=== PATIENT | female | born 1960 | race Caucasian/White ===

== ENCOUNTER 2016-11-05 03:12 | Emergency (ER) | payer MEDICARE, OTHER, MEDICAID ==
[2016-11-05 03:12] VITALS: BMI 30.9
[2016-11-05] MEDS ORDERED: DiphenhydrAMINE 50 mg/ml Inj IM STA (03:43)
[2016-11-05] MEDS ORDERED: DiphenhydrAMINE 50 mg/ml Inj ONE (03:46)
--- NOTE | 2016-11-05 03:52 | ED PDOC ---
HPI: General Adult Time Seen by Provider: 11/05/16 03:50 Chief Complaint (Nursing): Abnormal Skin Integrity Chief Complaint (Provider): rash/leg pain History Per: Patient (56 y/o female in ED for evaluation of rash noted along back/upper and lower extremities x 2 days. Attempted use of benadryl cream without relief. Also notes sciatica ongoing that is not improved with naproxen today. Patient states there are multiple bed bug infested apartments in her complex.) Past Medical History Reviewed: Historical Data, Nursing Documentation, Vital Signs Vital Signs: Last Vital Signs Temp 98.2 F 11/05/16 03:15 Pulse 73 11/05/16 03:15 Resp 18 11/05/16 03:15 BP 132/45 L 11/05/16 03:15 Pulse Ox 96 11/05/16 03:53 - Medical History PMH: Depression, Diabetes, HTN - Surgical History Surgical History: Cholecystectomy - Family History Family History: States: No Known Family Hx - Home Medications Home Medications: Ambulatory Orders Medication Instructions Recorded Atorvastatin Calcium [Lipitor] 10 mg PO DAILY 09/13/12 Fluoxetine Hydrochloride [Prozac] 10 mg PO DAILY 09/13/12 Lisinopril 20 mg PO DAILY 09/13/12 Metformin HCl [Metformin] 500 mg PO BID 09/13/12 Quetiapine Fumarate [Seroquel] 100 mg PO BID 09/13/12 traZODone [Desyrel] 100 mg PO DAILY 09/13/12 hydrOXYzine Pamoate [Vistaril] 1 tab PO Q6 PRN #15 cap 11/05/16 traMADol [Ultram] 1 tab PO Q8 PRN #5 tab 11/05/16 - Allergies Allergies/Adverse Reactions: Allergies Allergy/AdvReac Type Severity Reaction Status Date / Time ibuprofen [From Motrin] Allergy RASH Verified 11/05/16 03:15 Review of Systems ROS Statement: Except As Marked, All Systems Reviewed And Found Negative Physical Exam - Reviewed Nursing Documentation Reviewed: Yes Vital Signs Reviewed: Yes - Physical Exam Appears: Positive for: Well, Non-toxic, No Acute Distress Head Exam: Positive for: ATRAUMATIC, NORMAL INSPECTION, NORMOCEPHALIC Skin: Positive for: Normal Color, Warm, Rash (multiple purplish lesions noted posterior aspect of legs/back/arms.) Eye Exam: Positive for: EOMI, Normal appearance, PERRL ENT: Positive for: Normal ENT Inspection Neck: Positive for: Normal, Painless ROM Cardiovascular/Chest: Positive for: Regular Rate, Rhythm Respiratory: Positive for: CNT, Normal Breath Sounds Gastrointestinal/Abdominal: Positive for: Normal Exam, Bowel Sounds, Soft Back: Positive for: Normal Inspection Extremity: Positive for: Normal ROM Neurologic/Psych: Positive for: Alert, Oriented - ECG O2 Sat by Pulse Oximetry: 96 - Progress ED Course And Treament: Benadryl 50 mg IM x 1 dose Disposition - Clinical Impression Clinical Impression: Bed bug bite - Patient ED Disposition Is Patient to be Admitted: No - Disposition Disposition: Routine/Home Disposition Time: 03:53 Condition: FAIR Additional Instructions: F/U WITH DR. WOODWARD TOMORROW OR TUESDAY Prescriptions: hydrOXYzine Pamoate [Vistaril] 1 tab PO Q6 PRN #15 cap PRN Reason: Itching / Pruritus traMADol [Ultram] 1 tab PO Q8 PRN #5 tab PRN Reason: Pain, Severe (8-10) Instructions: Bed Bugs (ED), Sciatica (ED)
[2016-11-05] MEDS ORDERED: Oxycodone/Acetaminophen 5/325 mg Tab ONE (04:04)
[2016-11-05] MEDS ORDERED: Oxycodone/Acetaminophen 5/325 mg Tab PO STA (04:06)
[2016-11-05 05:58] VITALS: BP 129/74; PULSE 77; RESP 17; TEMP 98.1; O2SAT 99
== END 2016-11-05 05:50 | disposition home or self-care (01) ==
LOC: H.ER 03:12 → MERGE 03:12 → H.ER 05:50
DX: M54.30 Sciatica, unspecified side (principal); E11.9 Type 2 diabetes mellitus without complications; I10 Essential (primary) hypertension; Z79.84 Long term (current) use of oral hypoglycemic drugs
CPT/HCPCS: 96372; 99282; J1200; J2270

== ENCOUNTER 2016-12-16 10:33 | Emergency (ER) | payer MEDICARE, OTHER ==
[2016-12-16 10:40] VITALS: BP 127/86; PULSE 74; TEMP 97; O2SAT 99; BMI 30.9
--- NOTE | 2016-12-16 11:40 | ED PDOC ---
HPI: Skin/Bite Injury Time Seen by Provider: 12/16/16 11:27 Chief Complaint (Nursing): Abnormal Skin Integrity Chief Complaint (Provider): rash History Per: Patient History/Exam Limitations: no limitations Additional Complaint(s): 56yo F in ED for eval of rash diffusely on body-states that she had bedbugs x 2- 3 months. states that she was given medication for itching form ER, but has not been effective for symptom relief. however pt states tat she still has bedbugs in home and has told landlord to help with extermination. 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 no swelling to extremity, lips, tongue , difficulty with breathing SOB, CP, abd, pain nausea or vomiting. Past Medical History Reviewed: Historical Data, Nursing Documentation, Vital Signs Vital Signs: Last Vital Signs Temp 97 F L 12/16/16 10:39 Pulse 74 12/16/16 10:39 Resp BP 127/86 12/16/16 10:39 Pulse Ox 99 12/16/16 11:45 - Medical History PMH: Anxiety, Arthritis, Asthma, Back Problems, Bipolar Disorder, Depression, Diabetes, HTN, Hypercholesterolemia, Pneumonia Denies: Hepatitis, HIV, Chronic Kidney Disease, Seizures, Sexually Transmitted Disease - Surgical History Surgical History: Cholecystectomy - Family History Family History: States: Unknown Family Hx - Immunization History Hx Tetanus Toxoid Vaccination: No Hx Influenza Vaccination: No Hx Pneumococcal Vaccination: No - Home Medications Home Medications: Ambulatory Orders Medication Instructions Recorded Zolpidem [Ambien] 10 mg PO HS 05/26/16 clonazePAM [Klonopin] 1 mg PO BID 05/26/16 Canagliflozin [Invokana] 300 mg PO DAILY #0 tablet 05/31/16 FLUoxetine [Prozac] 20 mg PO BID #0 cap 05/31/16 Lisinopril [Zestril] 10 mg PO DAILY #0 tab 05/31/16 MetFORMIN [glucoPHAGE] 1,000 mg PO BIDWM #0 tab 05/31/16 Pioglitazone [Actos] 15 mg PO DAILY #0 tab 05/31/16 Pregabalin [Lyrica] 300 mg PO DAILY #0 capsule 05/31/16 SITagliptin [Januvia] 100 mg PO DAILY #0 tab 05/31/16 Cyclobenzaprine [Cyclobenzaprine 10 mg PO TID #12 tab 09/07/16 HCl] Methylprednisolone [Medrol Dose 4 mg PO DAILY #21 tab 09/07/16 Pack (21 tabs)] Calamine/Pramoxine [Caladryl] 180 ml TP DAILY #1 bottle 12/16/16 hydrOXYzine HCl [Atarax] 25 mg PO BID #10 tab 12/16/16 - Allergies Allergies/Adverse Reactions: Allergies Allergy/AdvReac Type Severity Reaction Status Date / Time ibuprofen Allergy RASH Verified 12/16/16 11:12 Review of Systems ROS Statement: Except As Marked, All Systems Reviewed And Found Negative Constitutional: Negative for: Fever, Chills Skin: Positive for: Rash Physical Exam - Reviewed Nursing Documentation Reviewed: Yes Vital Signs Reviewed: Yes - Physical Exam Appears: Positive for: Non-toxic, No Acute Distress, Uncomfortable Head Exam: Positive for: ATRAUMATIC, NORMAL INSPECTION, NORMOCEPHALIC Skin: Positive for: Warm, Rash (diffuse noted to body-area of exocraiotn noted papaular lesins noted. no swelling no bleeding noted. ) Eye Exam: Positive for: EOMI, Normal appearance, PERRL ENT: Positive for: Normal ENT Inspection Cardiovascular/Chest: Positive for: Regular Rate, Rhythm Respiratory: Positive for: CNT, Normal Breath Sounds Neurologic/Psych: Positive for: Alert, Oriented - ECG O2 Sat by Pulse Oximetry: 99 - Progress ED Course And Treament: pt given decadron in ED Medical Decision Making Medical Decision Making: pt advised to have all bed sheets, clothing washed in very hot water and wait for extermination to be complete to rid completely of bed bugs. pt will be d/.c with atarax and caladryl Disposition - Clinical Impression Clinical Impression: Rash - Patient ED Disposition Is Patient to be Admitted: No Counseled Patient/Family Regarding: Diagnosis, Need For Followup, Rx Given - Disposition Referrals: [facility] [Outside] Disposition: Routine/Home Disposition Time: 11:52 Condition: STABLE Prescriptions: Calamine/Pramoxine [Caladryl] 180 ml TP DAILY #1 bottle hydrOXYzine HCl [Atarax] 25 mg PO BID #10 tab Instructions: Acute Rash (ED)
== END 2016-12-16 12:43 | disposition home or self-care (01) ==
LOC: H.ER 10:33
DX: R21 Rash and other nonspecific skin eruption (principal); E11.9 Type 2 diabetes mellitus without complications; I10 Essential (primary) hypertension; Z86.59 Personal history of other mental and behavioral disorders; J45.909 Unspecified asthma, uncomplicated
CPT/HCPCS: 96372; 99282; J1100

== ENCOUNTER 2017-01-07 11:14 | Emergency (ER) | payer MEDICARE, OTHER, MEDICAID ==
[2017-01-07 11:15] VITALS: BMI 30.9
[2017-01-07 11:17] VITALS: TEMP 97
[2017-01-07] MEDS ORDERED: Lidocaine 5% Patch TD STA (11:39)
--- NOTE | 2017-01-07 11:40 | ED PDOC ---
Upper Extremity Pain/Injury Time Seen by Provider: 01/07/17 11:24 Chief Complaint (Nursing): Upper Extremity Problem/Injury Chief Complaint (Provider): Fall injury History Per: Patient History/Exam Limitations: no limitations Onset/Duration Of Symptoms: Mins (Prior to arrival) Additional Complaint(s): Tanvi Fuentes is a 56-year-old female with a past medical history of diabetes, hypertension, hypercholesterolemia who was brought to the ED via EMS after suffering a fall, resulting in lower back pain and left shoulder pain. The patient denies head trauma, loss of consciousness, and dizziness. Patient reports walking in the lobby of her building and slipping on the floor which was wet from the rain. She reports having an allergy to Motrin which results in hives. PMD: None reported Past Medical History Reviewed: Historical Data, Nursing Documentation, Vital Signs Vital Signs: Last Vital Signs Temp 97 F L 01/07/17 11:16 Pulse 74 01/07/17 11:17 Resp 20 01/07/17 11:17 BP 126/58 L 01/07/17 11:16 Pulse Ox 98 01/07/17 11:17 - Medical History PMH: Anxiety, Arthritis, Asthma, Back Problems, Bipolar Disorder, Depression, Diabetes, HTN, Hypercholesterolemia, Hyperlipidemia, Pneumonia Denies: Hepatitis, HIV, Chronic Kidney Disease, Seizures, Sexually Transmitted Disease - Surgical History Surgical History: Cholecystectomy - Family History Family History: States: Unknown Family Hx - Social History Current smoker - smoking cessation education provided: Yes (socially ) Alcohol: Social - Immunization History Hx Tetanus Toxoid Vaccination: No Hx Influenza Vaccination: No Hx Pneumococcal Vaccination: No - Home Medications Home Medications: Ambulatory Orders Medication Instructions Recorded Atorvastatin Calcium [Lipitor] 10 mg PO DAILY 09/13/12 Fluoxetine Hydrochloride [Prozac] 10 mg PO DAILY 09/13/12 Lisinopril 20 mg PO DAILY 09/13/12 Metformin HCl [Metformin] 500 mg PO BID 09/13/12 Quetiapine Fumarate [Seroquel] 100 mg PO BID 09/13/12 traZODone [Desyrel] 100 mg PO DAILY 09/13/12 Zolpidem [Ambien] 10 mg PO HS 05/26/16 clonazePAM [Klonopin] 1 mg PO BID 05/26/16 Canagliflozin [Invokana] 300 mg PO DAILY #0 tablet 05/31/16 FLUoxetine [Prozac] 20 mg PO BID #0 cap 05/31/16 Lisinopril [Zestril] 10 mg PO DAILY #0 tab 05/31/16 MetFORMIN [glucoPHAGE] 1,000 mg PO BIDWM #0 tab 05/31/16 Pioglitazone [Actos] 15 mg PO DAILY #0 tab 05/31/16 Pregabalin [Lyrica] 300 mg PO DAILY #0 capsule 05/31/16 SITagliptin [Januvia] 100 mg PO DAILY #0 tab 05/31/16 Cyclobenzaprine [Cyclobenzaprine 10 mg PO TID #12 tab 09/07/16 HCl] Methylprednisolone [Medrol Dose 4 mg PO DAILY #21 tab 09/07/16 Pack (21 tabs)] hydrOXYzine Pamoate [Vistaril] 1 tab PO Q6 PRN #15 cap 11/05/16 traMADol [Ultram] 1 tab PO Q8 PRN #5 tab 11/05/16 DiphenhydrAMINE [Benadryl] 25 mg PO ASDIR #1 packet 11/27/16 predniSONE [Prednisone] 20 mg PO BID #10 tab 11/27/16 Calamine/Pramoxine [Caladryl] 180 ml TP DAILY #1 bottle 12/16/16 hydrOXYzine HCl [Atarax] 25 mg PO BID #10 tab 12/16/16 Cyclobenzaprine [Cyclobenzaprine 10 mg PO TID #20 tab 01/07/17 HCl] Lidocaine 5% [Lidoderm] 1 patch TD DAILY #10 patch 01/07/17 traMADol [Ultram] 50 mg PO TID PRN #12 tab 01/07/17 - Allergies Allergies/Adverse Reactions: Allergies Allergy/AdvReac Type Severity Reaction Status Date / Time ibuprofen Allergy RASH Verified 01/07/17 11:17 Review of Systems ROS Statement: Except As Marked, All Systems Reviewed And Found Negative Cardiovascular: Negative for: Chest Pain Respiratory: Negative for: Shortness of Breath Genitourinary Female: Negative for: Dysuria, Frequency, Incontinence Musculoskeletal: Positive for: Shoulder Pain (Left), Back Pain (Lower back) Neurological: Negative for: Dizziness, Other (Head trauma, loss of consciousness ) Physical Exam - Reviewed Nursing Documentation Reviewed: Yes Vital Signs Reviewed: Yes - Physical Exam Appears: Positive for: Well, Non-toxic, No Acute Distress Head Exam: Positive for: ATRAUMATIC, NORMAL INSPECTION, NORMOCEPHALIC Skin: Positive for: Normal Color, Warm, Dry Eye Exam: Positive for: EOMI, Normal appearance, PERRL ENT: Positive for: Normal ENT Inspection Neck: Positive for: Normal, Painless ROM, Supple Cardiovascular/Chest: Positive for: Regular Rate, Rhythm Respiratory: Positive for: CNT, Normal Breath Sounds Pulses-Radial (L): 2+ Pulses-Radial (R): 2+ Gastrointestinal/Abdominal: Positive for: Normal Exam, Bowel Sounds, Soft. Negative for: Tenderness Back: Positive for: Other (tenderness to the paraspinal muscles in the lower thoracic/upper lumber area. No tenderness on the spiny process). Negative for: Vertebral Tenderness Extremity: Positive for: Normal ROM, Tenderness (of the left shoulder, no deformity), Capillary Refill (< 2 seconds ), Other (5/5 throughout). Negative for: Pedal Edema, Deformity, Swelling Neurologic/Psych: Positive for: Alert, Oriented. Negative for: Motor/Sensory Deficits - ECG O2 Sat by Pulse Oximetry: 98 (RA) Pulse Ox Interpretation: Normal Medical Decision Making Medical Decision Making: Initial Impression: Fall, muscle spasm, contusion Initial Plan: * x-ray lumbar spine * flexeril 10 mg PO * morphine 2 mg IM * x-ray left shoulder * lidoderm * reevaluation Scribe Attestation: Documented by Tanvi Schroeder, acting as a scribe for Rose Canseco MD. Provider Scribe Attestation: All medical record entries made by the Scribe were at my direction and personally dictated by me. I have reviewed the chart and agree that the record accurately reflects my personal performance of the history, physical exam, medical decision making, and the department course for this patient. I have also personally directed, reviewed, and agree with the discharge instructions and disposition. Disposition - Clinical Impression Clinical Impression: Shoulder pain, left, Back pain - Patient ED Disposition Is Patient to be Admitted: No Doctor Will See Patient In The: Office Counseled Patient/Family Regarding: Diagnosis, Need For Followup, Rx Given - Disposition Referrals: Enrique Oviedo MD [Family Provider] - Disposition: Routine/Home Disposition Time: 13:55 Condition: IMPROVED Prescriptions: Cyclobenzaprine [Cyclobenzaprine HCl] 10 mg PO TID #20 tab Lidocaine 5% [Lidoderm] 1 patch TD DAILY #10 patch traMADol [Ultram] 50 mg PO TID PRN #12 tab PRN Reason: breakthrough Instructions: Musculoskeletal Pain (ED) Forms: [employer] (Libyan) - POA Present On Arrival: Falls Or Trauma
--- NOTE | 2017-01-07 12:59 | RAD ---
PROCEDURE: Radiographs of the Left Shoulder HISTORY: Fall COMPARISON: No prior. FINDINGS: BONES: Bone alignment and mineralization are normal. There is no acute fracture or bone destruction. JOINTS: There is mild relative osteoarthrosis in the acromioclavicular joint. Glenohumeral joint is preserved. SOFT TISSUES: Normal. OTHER FINDINGS: None. IMPRESSION: No acute displaced fracture or dislocation. Please note occult fractures cannot be excluded on plain radiographs. If there is a persistent clinical concern, an MRI be performed for further evaluation. Mild degenerative osteoarthrosis in the acromioclavicular joint.
--- NOTE | 2017-01-07 13:12 | RAD ---
PROCEDURE: Radiographs of the Lumbar Spine. HISTORY: Fall COMPARISON: No prior. FINDINGS: BONES: There is mild dextrocurvature in the lumbar spine. There is normal alignment of the lumbar vertebral bodies. Lumbar lordosis is maintained. Vertebral bodies are normal in height. There is no acute fracture, spondylolysis or bone destruction. DISC SPACES: There is degenerative disc disease at L4-5 and L5-S1, worse at L5-S1 with severe reduced disc height, anterior osteophytes and facet arthropathy. The remaining disc heights are preserved. OTHER FINDINGS: There are no pathologic soft tissue calcifications. Both sacroiliac joints are normal. Surgical clip in the right upper quadrant are related to prior cholecystectomy. IMPRESSION: No acute fracture, spondylolysis or spondylolisthesis. Moderate degenerative disc disease at L5-S1.
[2017-01-07 14:16] VITALS: BP 127/73; PULSE 52; RESP 16; O2SAT 100
== END 2017-01-07 14:14 | disposition home or self-care (01) ==
LOC: H.ER 11:14
DX: M54.9 Dorsalgia, unspecified (principal); M25.512 Pain in left shoulder; W19.XXXA Unspecified fall, initial encounter; Y92.89 Other specified places as the place of occurrence of the external cause; E11.9 Type 2 diabetes mellitus without complications; E78.00 Pure hypercholesterolemia, unspecified; F31.9 Bipolar disorder, unspecified; F41.9 Anxiety disorder, unspecified; I10 Essential (primary) hypertension; Z79.84 Long term (current) use of oral hypoglycemic drugs; M19.012 Primary osteoarthritis, left shoulder
CPT/HCPCS: 72114; 73030; 96372; 99284; J2270

== ENCOUNTER 2017-02-06 07:57 | Emergency (ER) | payer MEDICAID, MEDICARE, OTHER ==
[2017-02-06 07:58] VITALS: BMI 30.9
[2017-02-06 08:04] VITALS: BP 129/52; PULSE 62; RESP 16; TEMP 97.6; O2SAT 96
[2017-02-06] MEDS ORDERED: Lidocaine 5% Patch TD STA (08:15)
--- NOTE | 2017-02-06 08:58 | ED PDOC ---
HPI: Back Time Seen by Provider: 02/06/17 08:04 Chief Complaint (Nursing): Lower Extremity Problem/Injury Chief Complaint (Provider): Back Pain History Per: Patient History/Exam Limitations: no limitations Current Symptoms Are (Timing): Still Present Previous Symptoms: Back Pain (Chronic Back Pain), Chronic Pain Additional Complaint(s): Tanvi Fuentes, a 56 year old female, who has a past medical history of hypertension, chronic back pain and sciatica presents to the ED complaining of left hip pain that radiates down her left leg. The patient states that she has had similar pain in the past and was seen here at [facility] and diagnosed with sciatica. Denies numbness, abdominal pain, shortness of breath, chest pain, fall , trauma. Patient states she does feel tingling in both her feet due to her diabetes. No incontinence, constipation. Ambulates with the pain. Of note: Patient is currently on the medications Gabapentin, Metaformin, Lisonopril - Risk Factors AAA Risk Factors: Pos: Older Than 49 Years Of Age, Hypertension Past Medical History Reviewed: Historical Data, Nursing Documentation, Vital Signs Vital Signs: Last Vital Signs Temp 97.6 F 02/06/17 08:02 Pulse 62 02/06/17 08:02 Resp 16 02/06/17 08:02 BP 129/52 L 02/06/17 08:02 Pulse Ox 96 02/06/17 08:02 - Medical History PMH: Anxiety, Arthritis, Asthma, Back Problems, Bipolar Disorder, Depression, Diabetes, HTN, Hypercholesterolemia, Hyperlipidemia Denies: Hepatitis, HIV, Chronic Kidney Disease, Seizures, Sexually Transmitted Disease - Surgical History Surgical History: Cholecystectomy - Family History Family History: States: Unknown Family Hx - Social History Current smoker - smoking cessation education provided: No Alcohol: None Drugs: Denies - Immunization History Hx Tetanus Toxoid Vaccination: No Hx Influenza Vaccination: No Hx Pneumococcal Vaccination: No - Home Medications Home Medications: Ambulatory Orders Medication Instructions Recorded Atorvastatin Calcium [Lipitor] 10 mg PO DAILY 09/13/12 Fluoxetine Hydrochloride [Prozac] 10 mg PO DAILY 09/13/12 Lisinopril 20 mg PO DAILY 09/13/12 Metformin HCl [Metformin] 500 mg PO BID 09/13/12 Quetiapine Fumarate [Seroquel] 100 mg PO BID 09/13/12 traZODone [Desyrel] 100 mg PO DAILY 09/13/12 Zolpidem [Ambien] 10 mg PO HS 05/26/16 clonazePAM [Klonopin] 1 mg PO BID 05/26/16 Canagliflozin [Invokana] 300 mg PO DAILY #0 tablet 05/31/16 FLUoxetine [Prozac] 20 mg PO BID #0 cap 05/31/16 Lisinopril [Zestril] 10 mg PO DAILY #0 tab 05/31/16 MetFORMIN [glucoPHAGE] 1,000 mg PO BIDWM #0 tab 05/31/16 Pioglitazone [Actos] 15 mg PO DAILY #0 tab 05/31/16 Pregabalin [Lyrica] 300 mg PO DAILY #0 capsule 05/31/16 SITagliptin [Januvia] 100 mg PO DAILY #0 tab 05/31/16 Cyclobenzaprine [Cyclobenzaprine 10 mg PO TID #12 tab 09/07/16 HCl] Methylprednisolone [Medrol Dose 4 mg PO DAILY #21 tab 09/07/16 Pack (21 tabs)] hydrOXYzine Pamoate [Vistaril] 1 tab PO Q6 PRN #15 cap 11/05/16 traMADol [Ultram] 1 tab PO Q8 PRN #5 tab 11/05/16 DiphenhydrAMINE [Benadryl] 25 mg PO ASDIR #1 packet 11/27/16 predniSONE [Prednisone] 20 mg PO BID #10 tab 11/27/16 Calamine/Pramoxine [Caladryl] 180 ml TP DAILY #1 bottle 12/16/16 hydrOXYzine HCl [Atarax] 25 mg PO BID #10 tab 12/16/16 Cyclobenzaprine [Cyclobenzaprine 10 mg PO TID #20 tab 01/07/17 HCl] Lidocaine 5% [Lidoderm] 1 patch TD DAILY #10 patch 01/07/17 traMADol [Ultram] 50 mg PO TID PRN #12 tab 01/07/17 Lidocaine 5% [Lidoderm] 1 ea TD DAILY PRN 3 Days 02/06/17 - Allergies Allergies/Adverse Reactions: Allergies Allergy/AdvReac Type Severity Reaction Status Date / Time ibuprofen Allergy RASH Verified 01/07/17 11:17 Review of Systems ROS Statement: Except As Marked, All Systems Reviewed And Found Negative Cardiovascular: Negative for: Chest Pain Respiratory: Negative for: Shortness of Breath Gastrointestinal: Negative for: Abdominal Pain Musculoskeletal: Positive for: Back Pain, Other (Left hip pain radiating down left leg) Physical Exam - Reviewed Nursing Documentation Reviewed: Yes Vital Signs Reviewed: Yes - Physical Exam Appears: Positive for: Non-toxic, No Acute Distress Head Exam: Positive for: ATRAUMATIC, NORMAL INSPECTION, NORMOCEPHALIC Skin: Positive for: Normal Color, Warm, Dry Eye Exam: Positive for: Normal appearance, EOMI, PERRL ENT: Positive for: Normal ENT Inspection Neck: Positive for: Normal, Painless ROM, Supple Cardiovascular/Chest: Positive for: Regular Rate, Rhythm, Chest Non Tender. Negative for: Tachycardia Respiratory: Positive for: Normal Breath Sounds. Negative for: Wheezing, Respiratory Distress Gastrointestinal/Abdominal: Positive for: Normal Exam, Bowel Sounds, Soft. Negative for: Tenderness (No abdominal tenderness), Guarding, Rebound Back: Positive for: Normal Inspection. Negative for: L CVA Tenderness, R CVA Tenderness Extremity: Positive for: Normal ROM, Other (Left buttock tenderness; Straight leg raise positive 30 degrees). Negative for: Tenderness, Deformity Neurologic/Psych: Positive for: Alert, Oriented - ECG O2 Sat by Pulse Oximetry: 96 (RA) Pulse Ox Interpretation: Normal - Progress ED Course And Treament: 908: Stable. AAOx3. Pain free. Tolerated PO. Pt. aware ED is applying a pain management protocol. Ambulated with no issues. Medical Decision Making Medical Decision Makin Initial Impression: 56 year old male presenting with left hip pain Initial Plan: * Flexeril 10mg PO * Lidocaine 5% 1 ea TD * Tylenol 975mg PO * Reevaluation Scribe Attestation Documented by Sudha Garcia acting as a scribe for Jeb Colon MD. Provider Attestation: All medical record entries made by the Scribe were at my direction and personally dictated by me. I have reviewed the chart and agree that the record accurately reflects my personal performance of the history, physical exam, medical decision making, and the department course for this patient. I have also personally directed, reviewed, and agree with the discharge instructions and disposition. Disposition - Clinical Impression Clinical Impression: Back pain - Patient ED Disposition Is Patient to be Admitted: No Counseled Patient/Family Regarding: Diagnosis, Need For Followup, Rx Given - Disposition Referrals: Enrique Oivedo MD [Staff Provider] - 02/07/17 Disposition: Routine/Home Disposition Time: 09:10 Condition: STABLE Additional Instructions: Return if not better in 3 days. Prescriptions: Lidocaine 5% [Lidoderm] 1 ea TD DAILY PRN 3 Days PRN Reason: Pain, Moderate (4-7) Instructions: Back Pain (ED) Forms: [employer] (Swedish)
== END 2017-02-06 11:05 | disposition home or self-care (01) ==
LOC: H.ER 07:57
DX: M54.9 Dorsalgia, unspecified (principal); E11.9 Type 2 diabetes mellitus without complications

== ENCOUNTER 2017-02-27 10:09 | Emergency (ER) | payer MEDICARE, MEDICAID ==
[2017-02-27 10:09] VITALS: BMI 30.9
[2017-02-27 10:41] VITALS: BP 131/65; PULSE 56; RESP 16; TEMP 97; O2SAT 97
[2017-02-27] MEDS ORDERED: Lidocaine 5% Patch TD STA (11:05)
[2017-02-27] MEDS ORDERED: Lidocaine 5% Patch TD ONE (11:25)
--- NOTE | 2017-02-27 11:43 | ED PDOC ---
Lower Extremity Pain/Injury Time Seen by Provider: 02/27/17 10:55 Chief Complaint (Nursing): Lower Extremity Problem/Injury Chief Complaint (Provider): Left leg pain History Per: Patient History/Exam Limitations: no limitations Onset/Duration Of Symptoms: Days Additional Complaint(s): Patient is 56 y/o female with a past medical history of diabetic neuropathy presenting to the emergency department for excruciating left leg pain ongoing for a few days that worsened this morning. Reports that as she was getting out of bed, her left leg gave out under her. Also notes taking neurontin without relief of symptoms. Denies fever, chills, nausea, urinary symptoms, and hematuria. Of note, patient is allergic is Motrin, reporting that she develops a rash. PCP: Dr. Enrique Oviedo Past Medical History Reviewed: Historical Data, Nursing Documentation, Vital Signs Vital Signs: Last Vital Signs Temp 97 F L 02/27/17 10:37 Pulse 56 L 02/27/17 10:37 Resp 16 02/27/17 10:37 BP 131/65 02/27/17 10:37 Pulse Ox 97 02/27/17 10:37 - Medical History PMH: Anxiety, Arthritis, Asthma, Back Problems, Bipolar Disorder, Depression, Diabetes, HTN, Hypercholesterolemia, Hyperlipidemia, Pneumonia Denies: Hepatitis, HIV, Chronic Kidney Disease, Seizures, Sexually Transmitted Disease - Surgical History Surgical History: Cholecystectomy - Family History Family History: States: Unknown Family Hx - Social History Current smoker - smoking cessation education provided: Yes (Some days) Ex-Smoker (has not smoked in the last 12 months): No Alcohol: Social Drugs: Denies - Immunization History Hx Tetanus Toxoid Vaccination: No Hx Influenza Vaccination: No Hx Pneumococcal Vaccination: No - Home Medications Home Medications: Ambulatory Orders Medication Instructions Recorded Atorvastatin Calcium [Lipitor] 10 mg PO DAILY 09/13/12 Fluoxetine Hydrochloride [Prozac] 10 mg PO DAILY 09/13/12 Lisinopril 20 mg PO DAILY 09/13/12 Metformin HCl [Metformin] 500 mg PO BID 09/13/12 Quetiapine Fumarate [Seroquel] 100 mg PO BID 09/13/12 traZODone [Desyrel] 100 mg PO DAILY 09/13/12 Zolpidem [Ambien] 10 mg PO HS 05/26/16 clonazePAM [Klonopin] 1 mg PO BID 05/26/16 Canagliflozin [Invokana] 300 mg PO DAILY #0 tablet 05/31/16 FLUoxetine [Prozac] 20 mg PO BID #0 cap 05/31/16 Lisinopril [Zestril] 10 mg PO DAILY #0 tab 05/31/16 MetFORMIN [glucoPHAGE] 1,000 mg PO BIDWM #0 tab 05/31/16 Pioglitazone [Actos] 15 mg PO DAILY #0 tab 05/31/16 Pregabalin [Lyrica] 300 mg PO DAILY #0 capsule 05/31/16 SITagliptin [Januvia] 100 mg PO DAILY #0 tab 05/31/16 Cyclobenzaprine [Cyclobenzaprine 10 mg PO TID #12 tab 09/07/16 HCl] Methylprednisolone [Medrol Dose 4 mg PO DAILY #21 tab 09/07/16 Pack (21 tabs)] hydrOXYzine Pamoate [Vistaril] 1 tab PO Q6 PRN #15 cap 11/05/16 traMADol [Ultram] 1 tab PO Q8 PRN #5 tab 11/05/16 DiphenhydrAMINE [Benadryl] 25 mg PO ASDIR #1 packet 11/27/16 predniSONE [Prednisone] 20 mg PO BID #10 tab 11/27/16 Calamine/Pramoxine [Caladryl] 180 ml TP DAILY #1 bottle 12/16/16 hydrOXYzine HCl [Atarax] 25 mg PO BID #10 tab 12/16/16 Cyclobenzaprine [Cyclobenzaprine 10 mg PO TID #20 tab 01/07/17 HCl] Lidocaine 5% [Lidoderm] 1 patch TD DAILY #10 patch 01/07/17 traMADol [Ultram] 50 mg PO TID PRN #12 tab 01/07/17 Lidocaine 5% [Lidoderm] 1 ea TD DAILY PRN 3 Days 02/06/17 Acetaminophen [Tylenol 325mg tab] 650 mg PO Q6H PRN #50 tab 02/27/17 Cyclobenzaprine [Cyclobenzaprine 10 mg PO TID #15 tab 02/27/17 HCl] Lidocaine 5% [Lidoderm] 1 patch TD DAILY #10 patch 02/27/17 - Allergies Allergies/Adverse Reactions: Allergies Allergy/AdvReac Type Severity Reaction Status Date / Time ibuprofen Allergy RASH Verified 07/07/17 11:17 Review of Systems ROS Statement: Except As Marked, All Systems Reviewed And Found Negative Constitutional: Negative for: Fever, Chills Gastrointestinal: Negative for: Nausea Genitourinary Female: Negative for: Dysuria, Frequency, Hematuria Musculoskeletal: Positive for: Leg Pain (left) Physical Exam - Reviewed Nursing Documentation Reviewed: Yes Vital Signs Reviewed: Yes - Physical Exam Appears: Positive for: Non-toxic, No Acute Distress, Uncomfortable (moderately) Head Exam: Positive for: ATRAUMATIC, NORMAL INSPECTION, NORMOCEPHALIC Skin: Positive for: Normal Color, Warm, Dry Eye Exam: Positive for: Normal appearance, PERRL Neck: Positive for: Normal, Painless ROM, Supple Cardiovascular/Chest: Positive for: Regular Rate, Rhythm. Negative for: Murmur Respiratory: Positive for: Normal Breath Sounds. Negative for: Accessory Muscle Use, Respiratory Distress Gastrointestinal/Abdominal: Positive for: Normal Exam, Soft. Negative for: Tenderness Extremity: Positive for: Tenderness (pain on extension and flexion of left hip and knee. Bilteral lower extremity 5/5 strength.). Negative for: Pedal Edema, Deformity, Swelling Neurologic/Psych: Positive for: Alert, Oriented (x3). Negative for: Motor/ Sensory Deficits - ECG O2 Sat by Pulse Oximetry: 97 (RA) Pulse Ox Interpretation: Normal - Progress Re-evaluation Time: 15:49 Condition: Re-examined, Improved Medical Decision Making Medical Decision Making: Time: 11:04 Initial Impression: Acute on chronic pain in setting of diabetic neuropathy Initial plan: Right Knee X-Ray Tylenol 975 mg PO Flexeril 10 mg PO Lidoderm 1 ea TD Pelvis X-Ray Reevaluation Scribe Attestation: Documented by Priyanka Mireles, acting as a scribe for Rose Canseco MD. Provider Scribe Attestation: All medical record entries made by the Scribe were at my direction and personally dictated by me. I have reviewed the chart and agree that the record accurately reflects my personal performance of the history, physical exam, medical decision making, and the department course for this patient. I have also personally directed, reviewed, and agree with the discharge instructions and disposition. Disposition - Clinical Impression Clinical Impression: Pain - Patient ED Disposition Is Patient to be Admitted: No Doctor Will See Patient In The: Office Counseled Patient/Family Regarding: Diagnosis, Need For Followup, Rx Given - Disposition Referrals: Enrique Oviedo MD [Staff Provider] - Disposition: Routine/Home Disposition Time: 12:50 Condition: IMPROVED Prescriptions: Acetaminophen [Tylenol 325mg tab] 650 mg PO Q6H PRN #50 tab PRN Reason: Pain, Mild (1-3) Cyclobenzaprine [Cyclobenzaprine HCl] 10 mg PO TID #15 tab Lidocaine 5% [Lidoderm] 1 patch TD DAILY #10 patch Instructions: Musculoskeletal Pain (ED) Forms: [facility] (Mongolian) - POA Present On Arrival: None
--- NOTE | 2017-02-27 12:08 | RAD ---
PROCEDURE: Left Knee Radiographs. HISTORY: Pain. COMPARISON: 08/27/2015. FINDINGS: BONES: There is diffuse bone demineralization. There is no acute fracture or bone destruction. Bone alignment is normal. JOINTS: There is severe tricompartmental degenerative osteoarthrosis with reduced joint spaces and marginal osteophytes, worse in the medial compartment. JOINT EFFUSION: Small suprapatellar joint effusion. OTHER FINDINGS: None. IMPRESSION: No acute fracture or dislocation is seen. Moderate tricompartmental degenerative osteoarthrosis, worse in the medial compartment.
--- NOTE | 2017-02-27 12:13 | RAD ---
PROCEDURE: Radiographs of the pelvis. HISTORY: felt leg give out this morning COMPARISON: None. FINDINGS: BONES: Pelvic Bones: The pelvic ring is intact bone mineralization is normal. Hips: No acute displaced fracture or dislocation. JOINTS: Sacroiliac Joints: Unremarkable. Pubic Symphysis: There is mild degenerative osteoarthrosis in the hip joints. OTHER FINDINGS: None. IMPRESSION: No acute displaced fracture or dislocation.
== END 2017-02-27 13:04 | disposition home or self-care (01) ==
LOC: H.ER 10:09
DX: E11.40 Type 2 diabetes mellitus with diabetic neuropathy, unspecified (principal); E78.5 Hyperlipidemia, unspecified; F31.9 Bipolar disorder, unspecified; F41.9 Anxiety disorder, unspecified; G89.29 Other chronic pain; I10 Essential (primary) hypertension; Z79.84 Long term (current) use of oral hypoglycemic drugs

== ENCOUNTER 2017-03-28 04:32 | Emergency (ER) | payer MEDICARE, OTHER ==
[2017-03-28 04:42] VITALS: RESP 16; O2SAT 98
--- NOTE | 2017-03-28 05:15 | ED PDOC ---
Lower Extremity Pain/Injury Time Seen by Provider: 03/28/17 04:46 Chief Complaint (Nursing): Lower Extremity Problem/Injury Chief Complaint (Provider): Leg pain History Per: Patient Additional Complaint(s): Tanvi Fuentes is a 56-year-old female with a past medical history of diabetes, hypertension, hypercholesterolemia who was brought to the ED for evaluation of left hip and knee pain x 1 year. Worse upon ambulation Past Medical History Reviewed: Historical Data, Nursing Documentation, Vital Signs Vital Signs: Last Vital Signs Temp 98.0 F 03/28/17 04:40 Pulse 68 03/28/17 04:40 Resp 16 03/28/17 04:40 BP 136/83 03/28/17 04:40 Pulse Ox 98 03/28/17 04:40 - Medical History PMH: Anxiety, Arthritis, Asthma, Back Problems, Bipolar Disorder, Depression, Diabetes, HTN, Hypercholesterolemia, Hyperlipidemia, Pneumonia Denies: Hepatitis, HIV, Chronic Kidney Disease, Seizures, Sexually Transmitted Disease - Surgical History Surgical History: Cholecystectomy - Family History Family History: States: Unknown Family Hx - Living Arrangements Living Arrangements: Other - Social History Current smoker - smoking cessation education provided: No Alcohol: None Drugs: Denies - Immunization History Hx Tetanus Toxoid Vaccination: No Hx Influenza Vaccination: No Hx Pneumococcal Vaccination: No - Home Medications Home Medications: Ambulatory Orders Medication Instructions Recorded Atorvastatin Calcium [Lipitor] 10 mg PO DAILY 09/13/12 Fluoxetine Hydrochloride [Prozac] 10 mg PO DAILY 09/13/12 Lisinopril 20 mg PO DAILY 09/13/12 Metformin HCl [Metformin] 500 mg PO BID 09/13/12 Quetiapine Fumarate [Seroquel] 100 mg PO BID 09/13/12 traZODone [Desyrel] 100 mg PO DAILY 09/13/12 Zolpidem [Ambien] 10 mg PO HS 05/26/16 clonazePAM [Klonopin] 1 mg PO BID 05/26/16 Canagliflozin [Invokana] 300 mg PO DAILY #0 tablet 05/31/16 FLUoxetine [Prozac] 20 mg PO BID #0 cap 05/31/16 Lisinopril [Zestril] 10 mg PO DAILY #0 tab 05/31/16 MetFORMIN [glucoPHAGE] 1,000 mg PO BIDWM #0 tab 05/31/16 Pioglitazone [Actos] 15 mg PO DAILY #0 tab 05/31/16 Pregabalin [Lyrica] 300 mg PO DAILY #0 capsule 05/31/16 SITagliptin [Januvia] 100 mg PO DAILY #0 tab 05/31/16 Cyclobenzaprine [Cyclobenzaprine 10 mg PO TID #12 tab 09/07/16 HCl] Methylprednisolone [Medrol Dose 4 mg PO DAILY #21 tab 09/07/16 Pack (21 tabs)] hydrOXYzine Pamoate [Vistaril] 1 tab PO Q6 PRN #15 cap 11/05/16 traMADol [Ultram] 1 tab PO Q8 PRN #5 tab 11/05/16 DiphenhydrAMINE [Benadryl] 25 mg PO ASDIR #1 packet 11/27/16 predniSONE [Prednisone] 20 mg PO BID #10 tab 11/27/16 Calamine/Pramoxine [Caladryl] 180 ml TP DAILY #1 bottle 12/16/16 hydrOXYzine HCl [Atarax] 25 mg PO BID #10 tab 12/16/16 Cyclobenzaprine [Cyclobenzaprine 10 mg PO TID #20 tab 01/07/17 HCl] Lidocaine 5% [Lidoderm] 1 patch TD DAILY #10 patch 01/07/17 traMADol [Ultram] 50 mg PO TID PRN #12 tab 01/07/17 Lidocaine 5% [Lidoderm] 1 ea TD DAILY PRN 3 Days patch 02/06/17 Acetaminophen [Tylenol 325mg tab] 650 mg PO Q6H PRN #50 tab 02/27/17 Cyclobenzaprine [Cyclobenzaprine 10 mg PO TID #15 tab 02/27/17 HCl] Lidocaine 5% [Lidoderm] 1 patch TD DAILY #10 patch 02/27/17 - Allergies Allergies/Adverse Reactions: Allergies Allergy/AdvReac Type Severity Reaction Status Date / Time ibuprofen Allergy RASH Verified 03/28/17 04:39 Review of Systems ROS Statement: Except As Marked, All Systems Reviewed And Found Negative Musculoskeletal: Positive for: Leg Pain Physical Exam - Reviewed Nursing Documentation Reviewed: Yes Vital Signs Reviewed: Yes - Physical Exam Appears: Positive for: Well, Non-toxic, No Acute Distress Head Exam: Positive for: ATRAUMATIC, NORMAL INSPECTION, NORMOCEPHALIC Skin: Positive for: Normal Color, Warm, DRY Eye Exam: Positive for: EOMI, Normal appearance, PERRL ENT: Positive for: Normal ENT Inspection Neck: Positive for: Normal, Painless ROM Cardiovascular/Chest: Positive for: Regular Rate, Rhythm Respiratory: Positive for: CNT, Normal Breath Sounds Gastrointestinal/Abdominal: Positive for: Normal Exam, Bowel Sounds, Soft Back: Positive for: Normal Inspection Extremity: Positive for: Normal ROM Neurologic/Psych: Positive for: Alert, Oriented - ECG O2 Sat by Pulse Oximetry: 98 Medical Decision Making Medical Decision Making: Medicated w Tramadol PO XR of hip and knee obtained: FORD LOPEZ, as read by PA-C Pt educated on results and demonstrated full understand full understanding; Pt reports left arm pain at this time as well. Further diagnostics ordered. Case endorsed to ED MD, Dr. Arzola, pending diagnostics and re-eval Disposition - Clinical Impression Clinical Impression: Leg pain - Patient ED Disposition Is Patient to be Admitted: Transfer of Care - Disposition Disposition: Transfer of Care Disposition Time: 05:53 Condition: STABLE Forms: [facility] (Nicaraguan) - POA Present On Arrival: None
[2017-03-28 06:04] LABS: BASO % 0.5 % (0.0-2.0); EOS # 0.2 K/uL (0.0-0.7); EOS % 2.4 % (0.0-4.0); HEMATOCRIT 36.5 % (34.0-47.0); LYMPH # 1.8 K/uL (1.0-4.3); LYMPH % 24.5 % (20.0-40.0); MEAN CELL VOLUME 93.7 fl (81.0-99.0); MEAN CORPUSCULAR HEMOGLOBIN 30.6 pg (27.0-31.0); MEAN CORPUSCULAR HGB CONC 32.7 g/dL (33.0-37.0); MEAN PLATELET VOLUME 9.3 fl (7.2-11.7); MONO # 0.8 K/uL (0.0-0.8); MONO % 10.1 % (0.0-10.0); NEUT # 4.7 K/uL (1.8-7.0); NEUT % 62.5 % (50.0-75.0); RED CELL DISTRIBUTION WIDTH 13.9 % (11.5-14.5); WHITE BLOOD COUNT 7.5 K/uL (4.8-10.8)
--- NOTE | 2017-03-28 06:06 | ED PDOC ---
- Laboratory Results Result Diagrams: 03/28/17 05:55 03/28/17 05:55 - ECG ECG Rhythm: Positive for: Sinus Rhythm Rate: 64 O2 Sat by Pulse Oximetry: 98 Medical Decision Making Medical Decision Makin Patient signed out to provider from Maria Luz Youssef PA-C pending cardiac work up. 0700 Labs WNL. pt resting in bed without complaint. Patient is stable for discharge home. Scribe Attestation: Documented by Deja Zhong acting as a scribe for Raine Arzola MD. Scribe Attestation: All medical record entries made by the Scribe were at my direction and personally dictated by me. I have reviewed the chart and agree that the record accurately reflects my personal performance of the history, physical exam, medical decision making, and the department course for this patient. I have also personally directed, reviewed, and agree with the discharge instructions and disposition. Disposition Counseled Patient/Family Regarding: Studies Performed, Diagnosis, Need For Followup - Clinical Impression Clinical Impression: Leg pain - POA Present On Arrival: None - Disposition Referrals: [facility] [Outside] [facility] [Outside] Enrique Oviedo MD [Primary Care Provider] - Disposition: Routine/Home Disposition Time: 07:00 Condition: STABLE Additional Instructions: follow up with your primary doctor in 1-2 days and with podiatry for chronic leg problems return to the ED with any worsening or concerning symptoms Instructions: Leg Pain (ED) Forms: [facility] (Burundian)
[2017-03-28 06:13] LABS: ALB/GLOB RATIO 1.5 (1.0-2.1); ALKALINE PHOSPHATASE 65 U/L (38-126); ALT/SGPT 24 U/L (9-52); AST/SGOT 19 U/L (14-36); BILIRUBIN,TOTAL 0.3 mg/dl (0.2-1.3); BLOOD UREA NITROGEN 25 mg/dl (7-17); CALCIUM 9.4 mg/dL (8.4-10.2); CARBON DIOXIDE 28 mmol/L (22-30); CHLORIDE 105 mmol/L (98-107); GFR AFRICAN-AMERICAN > 60; GLUCOSE,RANDOM 114 mg/dL (65-105); POTASSIUM 4.4 MMOL/L (3.6-5.0); SODIUM 142 mmol/l (132-148); TOTAL PROTEIN 6.4 G/DL (6.3-8.2)
[2017-03-28 06:29] LABS: PARTIAL THROMBOPLASTIN TIME 29.7 Seconds (25.6-37.1)
[2017-03-28 07:21] VITALS: BP 135/74; TEMP 98.1
--- NOTE | 2017-03-28 08:21 | RAD ---
PROCEDURE: Left Hip X-ray Radiographs. HISTORY: Pain. No history of recent/ related trauma provided COMPARISON: None. FINDINGS: BONES: Normal. No fracture. JOINTS: Normal. SOFT TISSUES: Normal. OTHER FINDINGS: None. IMPRESSION: No acute findings related to/accounting for the clinical presentation. No preliminary report provided by emergency department personnel.
--- NOTE | 2017-03-28 08:21 | RAD ---
PROCEDURE: Left Knee Radiographs. HISTORY: Pain. No history of recent/ related trauma provided COMPARISON: 02/27/2017 FINDINGS: BONES: Proliferative hypertrophic changes emanating from the femoral condyle and tibial plateau [place] No acute fracture identified. JOINTS: Tricompartmental degenerative changes, unchanged compared to the prior study. JOINT EFFUSION: No appreciable joint effusion. OTHER FINDINGS: None. IMPRESSION: No acute findings related to/accounting for the clinical presentation. No significant interval change compared to the prior examination(s). No preliminary report provided by emergency department personnel.
--- NOTE | 2017-03-28 17:24 | CARD ---
APPROVED REPORT EKG Measurement Heart [id number] ID [id number] <Conclusion> Normal sinus rhythm Normal ECG
[2017-03-29 04:38] VITALS: PULSE 64
== END 2017-03-28 07:22 | disposition home or self-care (01) ==
LOC: H.ER 04:32
DX: M79.605 Pain in left leg (principal); E11.9 Type 2 diabetes mellitus without complications; E78.00 Pure hypercholesterolemia, unspecified; F31.9 Bipolar disorder, unspecified; F41.9 Anxiety disorder, unspecified; I10 Essential (primary) hypertension; J45.909 Unspecified asthma, uncomplicated; Z79.84 Long term (current) use of oral hypoglycemic drugs

== ENCOUNTER 2017-07-31 22:54 | Inpatient (IN) | payer MEDICARE, OTHER ==
--- NOTE | 2017-07-31 23:12 | ED PDOC ---
Lower Extremity Pain/Injury Time Seen by Provider: 07/31/17 23:08 Chief Complaint (Nursing): Lower Extremity Problem/Injury Chief Complaint (Provider): leg pain History Per: Patient Additional Complaint(s): 56 year old female presents to ED via EMS for evaluation of low back pain s/p fall. Patient had surgery to left knee on Tuesday morning and Tuesday evening she took a shower and fell injuring her lower back. Patient was sent home from surgery with Tylenol with codeine but this has not helped her back pain. She denies pain to left knee. Patient did not sustain loss of consciousness as a result of fall on Tuesday. PMD: Dr. Oviedo Past Medical History Reviewed: Historical Data, Nursing Documentation, Vital Signs Vital Signs: Last Vital Signs Temp 98.4 F 07/31/17 23:02 Pulse 72 07/31/17 23:02 Resp 18 07/31/17 23:02 BP 150/103 H 07/31/17 23:02 Pulse Ox 99 07/31/17 23:02 - Medical History PMH: Anxiety, Arthritis, Asthma, Back Problems, Bipolar Disorder, Depression, Diabetes, HTN, Hypercholesterolemia, Hyperlipidemia - Surgical History Surgical History: Cholecystectomy Other surgeries: left knee surgery - Family History Family History: States: No Known Family Hx - Living Arrangements Living Arrangements: Alone - Social History Current smoker - smoking cessation education provided: Yes Alcohol: Social Drugs: Denies - Home Medications Home Medications: Ambulatory Orders Medication Instructions Recorded Atorvastatin Calcium [Lipitor] 10 mg PO DAILY 09/13/12 Fluoxetine Hydrochloride [Prozac] 10 mg PO DAILY 09/13/12 Metformin HCl [Metformin] 500 mg PO BID 09/13/12 Zolpidem [Ambien] 10 mg PO HS 05/26/16 clonazePAM [Klonopin] 1 mg PO BID 05/26/16 Lisinopril [Zestril] 10 mg PO DAILY #0 tab 05/31/16 Pioglitazone [Actos] 15 mg PO DAILY #0 tab 05/31/16 Pregabalin [Lyrica] 300 mg PO DAILY #0 capsule 05/31/16 SITagliptin [Januvia] 100 mg PO DAILY #0 tab 05/31/16 Cyclobenzaprine [Cyclobenzaprine 10 mg PO TID #12 tab 09/07/16 HCl] Methylprednisolone [Medrol Dose 4 mg PO DAILY #21 tab 09/07/16 Pack (21 tabs)] predniSONE [Prednisone] 20 mg PO BID #10 tab 11/27/16 Calamine/Pramoxine [Caladryl] 180 ml TP DAILY #1 bottle 12/16/16 hydrOXYzine HCl [Atarax] 25 mg PO BID #10 tab 12/16/16 Lidocaine 5% [Lidoderm] 1 patch TD DAILY #10 patch 01/07/17 traMADol [Ultram] 50 mg PO TID PRN #12 tab 01/07/17 Acetaminophen [Tylenol 325mg tab] 650 mg PO Q6H PRN #50 tab 02/27/17 - Allergies Allergies/Adverse Reactions: Allergies Allergy/AdvReac Type Severity Reaction Status Date / Time ibuprofen Allergy RASH Verified 03/28/17 04:39 Wells Criteria for PE - Wells Criteria for Pulmonary Embolism Clinical Signs and Symptoms of DVT: No P.E is #1 Diagnosis, or Equally Likely: No Heart Rate >100: No Immobilization at least 3 days;Surgery previous 4 weeks: No Previous, objectively diagnosed PE or DVT: No Hemoptysis: No Malignancy w/treatment within 6 months, or palliative: No Total Score: 0 Review of Systems ROS Statement: Except As Marked, All Systems Reviewed And Found Negative Musculoskeletal: Positive for: Back Pain, Leg Pain Physical Exam - Reviewed Nursing Documentation Reviewed: Yes Vital Signs Reviewed: Yes - Physical Exam Appears: Positive for: Well, Non-toxic, Uncomfortable Skin: Negative for: Rash Eye Exam: Positive for: Normal appearance Cardiovascular/Chest: Positive for: Regular Rate, Rhythm Respiratory: Positive for: Normal Breath Sounds Back: Positive for: Vertebral Tenderness (Mild tenderness along midline lumbar spine with no step off or palpable bony deformity), Muscle Spasm (lumbar region) , Other (Surgical scars noted to anterior left knee with moderate diffuse swelling, nontender palpation, swelling or tenderness). Negative for: L CVA Tenderness, R CVA Tenderness Neurologic/Psych: Positive for: Alert, Oriented - Laboratory Results Result Diagrams: 08/01/17 03:10 08/01/17 03:10 - ECG Interpretation Of ECG: Normal sinus rhythm 68/m, reviewed by PA and ED attending O2 Sat by Pulse Oximetry: 99 Pulse Ox Interpretation: Normal - Other Rad L/S Spine x-ray X-Ray: Interpreted by Me, Viewed By Me X-Ray Interpretation: ? L1 compression fracture, CT ordered Left knee x-ray X-Ray: Interpreted by Me, Viewed By Me X-Ray Interpretation: arthritic changes, no acute fx or dis Lumbar spine CT X-Ray: Read By Radiologist X-Ray Interpretation: see below CXR X-Ray: Interpreted by Me, Viewed By Me X-Ray Interpretation: no acute finding Medical Decision Making Medical Decision Makin-year-old female with low back pain. Plan: X-ray LS Spine X-ray left knee PO percocet 2 tabs PO flexeril X-ray lumbar spine demonstrates possible compression fracture, CT was ordered CT: IMPRESSION: 1. There is acute comminuted fracture involving the superior endplate of L1 with retropulsion into the canal measuring 8 mm. There is mild spinal stenosis. 2. Paraspinal infiltration at L1 representing hemorrhage or contusion. Patient still has moderate pain after Percocet was administered, she was made aware of CT findings. Patient given IV Dilaudid. 5:41 am: case was d/w PMD Dr. Oviedo who is aware of admission. Disposition - Clinical Impression Clinical Impression: Compression fx, lumbar spine - Patient ED Disposition Is Patient to be Admitted: Yes - Disposition Disposition Time: 03:30 Condition: FAIR - Pt Status Changed To: Hospital Disposition Of: Inpatient - Admit Certification Admit to Inpatient:: After my assessment, the patient will require hospitalization for at least two midnights. This is because of the severity of symptoms shown, intensity of services needed, and/or the medical risk in this patient being treated as an outpatient. - POA Present On Arrival: None
[2017-07-31] MEDS ORDERED: Oxycodone/Acetaminophen 5/325 mg Tab PO STA (23:25)
[2017-07-31] MEDS ORDERED: Oxycodone/Acetaminophen 5/325 mg Tab ONE ×2 (23:34→23:40)
--- NOTE | 2017-08-01 02:25 | CT ---
EXAM: CT Lumbar Spine Without Intravenous Contrast CLINICAL HISTORY: 56 years old, female; Injury or trauma; Fall; Initial encounter; Additional info: Fall, rule out compression fracture TECHNIQUE: Axial computed tomography images of the lumbar spine without intravenous contrast. All CT scans at this facility use one or more dose reduction techniques, viz.: automated exposure control; ma/kV adjustment per patient size (including targeted exams where dose is matched to indication; i.e. head); or iterative reconstruction technique. 497 images are submitted.Sagittal , axial and coronal MPR reformatted images are submitted in soft tissue and bone windows. COMPARISON: CR - LS SPINE AP/LAT 2017-08-01 01:02 FINDINGS: Vertebrae: There is acute comminuted fracture involving the superior endplate of L1 with retropulsion into the canal measuring 8 mm seen on image 21 series 3. There is mild spinal stenosis. Paraspinal infiltration at L1 representing hemorrhage or contusion. The posterior elements of L1 vertebral body are intact. Right-sided lumbar scoliosis. Discs/spinal canal/neural foramina: T11-T12, L5-S1 vacuum disc. Soft tissues: Unremarkable. Reproductive: Uterus is seen. IMPRESSION: 1. There is acute comminuted fracture involving the superior endplate of L1 with retropulsion into the canal measuring 8 mm. There is mild spinal stenosis. 2. Paraspinal infiltration at L1 representing hemorrhage or contusion. CRITICAL RESULT: The study was personally discussed on the telephone with [Dr. Kyle FARMER, [place]] on 08/01/2017 2:24 AM EST. The results were understood and acknowledged.
[2017-08-01] MEDS ORDERED: Sodium Chloride 0.9% 1,000 ML IV STA (02:36)
[2017-08-01 03:14] LABS: BASO % 0.3 % (0.0-2.0); EOS # 0.2 K/uL (0.0-0.7); EOS % 1.3 % (0.0-4.0); HEMOGLOBIN 13.7 g/dL (12.0-16.0); LYMPH # 2.4 K/uL (1.0-4.3); LYMPH % 21.2 % (20.0-40.0); MEAN CELL VOLUME 92.5 fl (81.0-99.0); MEAN CORPUSCULAR HEMOGLOBIN 31.1 pg (27.0-31.0); MEAN CORPUSCULAR HGB CONC 33.6 g/dL (33.0-37.0); MEAN PLATELET VOLUME 9.3 fl (7.2-11.7); MONO # 0.8 K/uL (0.0-0.8); NEUT # 8.1 K/uL (1.8-7.0); NEUT % 70.2 % (50.0-75.0); RBC 4.41 Mil/uL (3.80-5.20); RED CELL DISTRIBUTION WIDTH 13.1 % (11.5-14.5); WHITE BLOOD COUNT 11.5 K/uL (4.8-10.8)
[2017-08-01 03:24] LABS: ALB/GLOB RATIO 1.4 (1.0-2.1); ALBUMIN 4.3 g/dL (3.5-5.0); ALT/SGPT 18 U/L (9-52); AST/SGOT 23 U/L (14-36); BLOOD UREA NITROGEN 20 mg/dl (7-17); CALCIUM 9.6 mg/dL (8.4-10.2); GFR AFRICAN-AMERICAN > 60; GFR NON-AFRICAN AMERICAN > 60
[2017-08-01] MEDS ORDERED: HYDROmorphone 1 mg/ml ISec IVP PRN (06:34)
--- NOTE | 2017-08-01 07:40 | CARD ---
APPROVED REPORT EKG Measurement Heart [id number] <Conclusion> Normal sinus rhythm Normal ECG
[2017-08-01] MEDS: Pantoprazole 40 mg EC Tab PO SCH (09:52)
[2017-08-01] MEDS: Insulin Regular 100 units/ml SC SCH ×4 (10:10→21:41)
[2017-08-01] MEDS: Lidocaine 5% Patch TD SCH (10:12)
--- NOTE | 2017-08-01 10:46 | RAD ---
HISTORY: clearance COMPARISON: 06/25/2016 FINDINGS: LUNGS: No active pulmonary disease. PLEURA: No significant pleural effusion identified, no pneumothorax apparent. CARDIOVASCULAR: Normal. OSSEOUS STRUCTURES: No significant abnormalities. VISUALIZED UPPER ABDOMEN: Normal. OTHER FINDINGS: None. IMPRESSION: No active disease. No significant interval change compared to the prior examination(s). Concordant results with the preliminary interpretation rendered by the emergency department physician procedure.
--- NOTE | 2017-08-01 12:21 | RAD ---
PROCEDURE: Left Knee Radiographs. HISTORY: Pain. COMPARISON: Comparison is made with the previous study dated 03/28/2017 FINDINGS: BONES: No evidence of acute fracture JOINTS: Moderate to severe osteoarthritic changes are noted associated with marginal osteophyte formation. JOINT EFFUSION: Suspicious for small joint effusion. OTHER FINDINGS: None. IMPRESSION: Moderate to severe osteoarthritic changes.
--- NOTE | 2017-08-01 12:43 | RAD ---
PROCEDURE: Radiographs of the Lumbar Spine. HISTORY: trauma COMPARISON: Comparison is made with the previous study dated 01/07/[address] of the abdomen and pelvis dated 03/31/2014 FINDINGS: BONES: Normal alignment. No listhesis. There is [id number] compression deformity of superior endplate at L1. DISC SPACES: Moderate to severe narrowing of the intervertebral disc space at L5-S1 associated with degenerative changes OTHER FINDINGS: None. IMPRESSION: Age indeterminate [id number] compression deformity at the superior endplate of L1 appears worse compared to the previous study dated 01/07/2017. Moderate to severe degenerative changes at L5-S1
--- NOTE | 2017-08-01 13:00 | CP.PCM.CON ---
History of Present Illness - History of Present Illness History of Present Illness: 56 yo F with pmhx of OA presented to ED for evaluation of low back pain after a fall. Pt underwent recent left knee arthroscopy with partial meniscectomy and synovectomy by Dr. Regalado 07/28/17. Pt states she fell in her bathtub, backwards onto her back. She denies any previous injury or trauma to the low back prior to this fall. She denies any head trauma or LOC. Pt states she is currently not having any left knee pain. She complains of low back pain that radiates down her LLE. Pt denies any SOB, chest pain, N/V/D, motor weakness to b/l LE. She denies any wound drainage or fever/chills. She denies any problems with bladder or bowel funtion. Review of Systems - Constitutional Constitutional: As Per HPI Past Patient History - Infectious Disease Hx of Infectious Diseases: None - Tetanus Immunizations Tetanus Immunization: Unknown - Past Medical History & Family History Past Medical History?: Yes - Past Social History Alcohol: Social Drugs: Denies - CARDIAC Hx Hypercholesterolemia: Yes Hx Hypertension: Yes - PULMONARY Hx Asthma: Yes - NEUROLOGICAL Hx Neurological Disorder: No - HEENT Hx HEENT Problems: No - RENAL Hx Chronic Kidney Disease: No - ENDOCRINE/METABOLIC Hx Endocrine Disorders: Yes Hx Diabetes Mellitus Type 2: Yes - HEMATOLOGICAL/ONCOLOGICAL Hx Blood Disorders: No Hx AIDS: No Hx Human Immunodeficiency Virus (HIV): No - INTEGUMENTARY Hx Dermatological Problems: No - MUSCULOSKELETAL/RHEUMATOLOGICAL Hx Arthritis: Yes - GASTROINTESTINAL Hx Gastrointestinal Disorders: No - GENITOURINARY/GYNECOLOGICAL Hx Genitourinary Disorders: No Hx Sexually Transmitted Disorders: No - PSYCHIATRIC Hx Anxiety: Yes Hx Bipolar Disorder: Yes Hx Depression: Yes - SURGICAL HISTORY Hx Cholecystectomy: Yes - ANESTHESIA Hx Anesthesia: Yes Hx Anesthesia Reactions: No Hx Malignant Hyperthermia: No Has any member of the family had a problem w/ anesthesia?: No Meds Allergies/Adverse Reactions: Allergies Allergy/AdvReac Type Severity Reaction Status Date / Time ibuprofen Allergy RASH Verified 03/28/17 04:39 - Medications Medications: Current Medications Acetaminophen (Tylenol 325mg Tab) 650 mg PO Q6H PRN PRN Reason: Pain, Mild (1-3) Atorvastatin Calcium (Lipitor) 10 mg PO HS [facility] Clonazepam (Klonopin) 1 mg PO BID [facility] Last Admin: 08/01/17 09:49 Dose: 1 mg Cyclobenzaprine HCl (Flexeril) 10 mg PO TID [facility] Last Admin: 08/01/17 10:10 Dose: 10 mg Fluoxetine HCl (Prozac) 10 mg PO DAILY [facility] Last Admin: 08/01/17 10:12 Dose: 10 mg Home Med (Pregabalin [Lyrica]) 300 mg PO DAILY [facility] Hydromorphone HCl (Dilaudid) 1 mg IVP Q4 PRN PRN Reason: Pain, severe (8-10) Last Admin: 08/01/17 08:26 Dose: 1 mg Hydroxyzine HCl (Atarax) 25 mg PO BID PRN PRN Reason: Itching / Pruritus Insulin Human Regular (Humulin R) 0 units SC ACHS [facility] PRN Reason: Protocol Last Admin: 08/01/17 10:10 Dose: Not Given Lidocaine (Lidoderm) 1 ea TD DAILY [facility] Last Admin: 08/01/17 10:12 Dose: 1 ea Lisinopril (Zestril) 10 mg PO DAILY [facility] Last Admin: 08/01/17 09:51 Dose: 10 mg Metformin HCl (Glucophage) 500 mg PO BID [facility] Last Admin: 08/01/17 10:10 Dose: 500 mg Ondansetron HCl (Zofran Inj) 4 mg IVP Q6 PRN PRN Reason: Nausea/Vomiting Pantoprazole Sodium (Protonix Ec Tab) 40 mg PO DAILY [facility] Last Admin: 08/01/17 09:52 Dose: 40 mg Pioglitazone HCl (Actos) 15 mg PO DAILY [facility] Last Admin: 08/01/17 10:09 Dose: 15 mg Sitagliptin Phosphate (Januvia) 100 mg PO DAILY [facility] Last Admin: 08/01/17 09:49 Dose: 100 mg Tramadol HCl (Ultram) 50 mg PO TID PRN PRN Reason: Pain, moderate (4-7) Zolpidem Tartrate (Ambien) 5 mg PO HS PRN PRN Reason: Insomnia Physical Exam - Constitutional Appears: Well, No Acute Distress - Respiratory Exam Respiratory Exam: Clear to Auscultation Bilateral, NORMAL BREATHING PATTERN - Cardiovascular Exam Cardiovascular Exam: REGULAR RHYTHM, RRR - Extremities Exam Additional comments: Left knee: +swelling and echymosis Incision sites C/D/I, no active drainage ROM limited due to pain and stiffness Calves soft and nontender b/l N/V intact distally Distal pulses wnl Results - Vital Signs Recent Vital Signs: Last Vital Signs Temp 98.1 F 08/01/17 08:08 Pulse 68 08/01/17 08:08 Resp 20 08/01/17 08:08 BP 98/68 L 08/01/17 09:51 Pulse Ox 95 08/01/17 08:08 - Labs Result Diagrams: 08/01/17 03:10 08/01/17 03:10 Labs: Laboratory Results - last 24 hr 08/01/17 08/01/17 08/01/17 03:10 03:10 05:56 WBC 11.5 H D RBC 4.41 Hgb 13.7 Hct 40.8 MCV 92.5 MCH 31.1 H MCHC 33.6 RDW 13.1 Plt Count 225 MPV 9.3 Neut % (Auto) 70.2 Lymph % (Auto) 21.2 [place]eld % (Auto) 7.0 Eos % (Auto) 1.3 Baso % (Auto) 0.3 Neut # 8.1 H Lymph # 2.4 Weld # 0.8 Eos # 0.2 Baso # 0.0 Sodium 139 Potassium 4.5 Chloride 101 Carbon Dioxide 27 Anion Gap 16 BUN 20 H Creatinine 0.6 L Est GFR ( Amer) > 60 Est GFR (Non-Af Amer) > 60 POC Glucose (mg/dL) 124 H Random Glucose 156 H Calcium 9.6 Total Bilirubin 0.5 AST 23 ALT 18 Alkaline Phosphatase 78 Total Protein 7.2 Albumin 4.3 Globulin 3.0 Albumin/Globulin Ratio 1.4 Assessment & Plan - Assessment and Plan (Free Text) Assessment: 56 yo F 4 days s/p left knee arthroscopy presents with acute low back pain after a slip and fall Plan: Xrays of left knee reviewed and discussed with Dr. Regalado- no acute fx or dislocation Xray and CT of lumbar spine reviewed and discussed with Dr. Regalado Xrays LS reveal age indeterminate compression fx L1 CT lumbar spine reveals comminuted fx of L1 with retopulsion into canal Recommend: Spine consult for further eval and tx of lumbar spine fx NWB b/l LE pending spine eval and recs Left knee: PAin control dvt ppx- continue aspirin 325mg daily PT/OT pending clearance from spine Can f/u as outpt regarding left knee
--- NOTE | 2017-08-01 18:05 | CP.PCM.CON ---
History of Present Illness - History of Present Illness History of Present Illness: notified of consultation. await echocardiogram. full consult to follow. Past Patient History - Infectious Disease Hx of Infectious Diseases: None - Tetanus Immunizations Tetanus Immunization: Unknown - Past Medical History & Family History Past Medical History?: Yes - Past Social History Alcohol: Social Drugs: Denies - CARDIAC Hx Hypercholesterolemia: Yes Hx Hypertension: Yes - PULMONARY Hx Asthma: Yes - NEUROLOGICAL Hx Neurological Disorder: No - HEENT Hx HEENT Problems: No - RENAL Hx Chronic Kidney Disease: No - ENDOCRINE/METABOLIC Hx Endocrine Disorders: Yes Hx Diabetes Mellitus Type 2: Yes - HEMATOLOGICAL/ONCOLOGICAL Hx Blood Disorders: No Hx AIDS: No Hx Human Immunodeficiency Virus (HIV): No - INTEGUMENTARY Hx Dermatological Problems: No - MUSCULOSKELETAL/RHEUMATOLOGICAL Hx Arthritis: Yes - GASTROINTESTINAL Hx Gastrointestinal Disorders: No - GENITOURINARY/GYNECOLOGICAL Hx Genitourinary Disorders: No Hx Sexually Transmitted Disorders: No - PSYCHIATRIC Hx Anxiety: Yes Hx Bipolar Disorder: Yes Hx Depression: Yes - SURGICAL HISTORY Hx Cholecystectomy: Yes - ANESTHESIA Hx Anesthesia: Yes Hx Anesthesia Reactions: No Hx Malignant Hyperthermia: No Has any member of the family had a problem w/ anesthesia?: No Meds Allergies/Adverse Reactions: Allergies Allergy/AdvReac Type Severity Reaction Status Date / Time ibuprofen Allergy RASH Verified 03/28/17 04:39 - Medications Medications: Current Medications Acetaminophen (Tylenol 325mg Tab) 650 mg PO Q6H PRN PRN Reason: Pain, Mild (1-3) Atorvastatin Calcium (Lipitor) 10 mg PO HS [facility] Clonazepam (Klonopin) 1 mg PO BID [facility] Last Admin: 08/01/17 09:49 Dose: 1 mg Cyclobenzaprine HCl (Flexeril) 10 mg PO TID [facility] Last Admin: 08/01/17 10:10 Dose: 10 mg Enoxaparin Sodium (Lovenox) 40 mg SC DAILY [facility] PRN Reason: Protocol Fluoxetine HCl (Prozac) 10 mg PO DAILY [facility] Last Admin: 08/01/17 10:12 Dose: 10 mg Home Med (Pregabalin [Lyrica]) 300 mg PO DAILY [facility] Hydromorphone HCl (Dilaudid) 1 mg IVP Q4 PRN PRN Reason: Pain, severe (8-10) Last Admin: 08/01/17 16:47 Dose: 1 mg Hydroxyzine HCl (Atarax) 25 mg PO BID PRN PRN Reason: Itching / Pruritus Insulin Human Regular (Humulin R) 0 units SC ACHS [facility] PRN Reason: Protocol Last Admin: 08/01/17 11:30 Dose: Not Given Lidocaine (Lidoderm) 1 ea TD DAILY [facility] Last Admin: 08/01/17 10:12 Dose: 1 ea Lisinopril (Zestril) 10 mg PO DAILY [facility] Last Admin: 08/01/17 09:51 Dose: 10 mg Metformin HCl (Glucophage) 500 mg PO BID [facility] Last Admin: 08/01/17 10:10 Dose: 500 mg Ondansetron HCl (Zofran Inj) 4 mg IVP Q6 PRN PRN Reason: Nausea/Vomiting Pantoprazole Sodium (Protonix Ec Tab) 40 mg PO DAILY [facility] Last Admin: 08/01/17 09:52 Dose: 40 mg Pioglitazone HCl (Actos) 15 mg PO DAILY [facility] Last Admin: 08/01/17 10:09 Dose: 15 mg Sitagliptin Phosphate (Januvia) 100 mg PO DAILY [facility] Last Admin: 08/01/17 09:49 Dose: 100 mg Tramadol HCl (Ultram) 50 mg PO TID PRN PRN Reason: Pain, moderate (4-7) Zolpidem Tartrate (Ambien) 5 mg PO HS PRN PRN Reason: Insomnia Results - Vital Signs Recent Vital Signs: Last Vital Signs Temp 98.8 F 08/01/17 16:25 Pulse 73 08/01/17 16:25 Resp 20 08/01/17 16:25 BP 109/61 08/01/17 16:25 Pulse Ox 94 L 08/01/17 16:25 - Labs Result Diagrams: 08/01/17 03:10 08/01/17 03:10 Labs: Laboratory Results - last 24 hr 08/01/17 08/01/17 08/01/17 03:10 03:10 05:56 WBC 11.5 H D RBC 4.41 Hgb 13.7 Hct 40.8 MCV 92.5 MCH 31.1 H MCHC 33.6 RDW 13.1 Plt Count 225 MPV 9.3 Neut % (Auto) 70.2 Lymph % (Auto) 21.2 [place] % (Auto) 7.0 Eos % (Auto) 1.3 Baso % (Auto) 0.3 Neut # 8.1 H Lymph # 2.4 Irion # 0.8 Eos # 0.2 Baso # 0.0 Sodium 139 Potassium 4.5 Chloride 101 Carbon Dioxide 27 Anion Gap 16 BUN 20 H Creatinine 0.6 L Est GFR ( Amer) > 60 Est GFR (Non-Af Amer) > 60 POC Glucose (mg/dL) 124 H Random Glucose 156 H Calcium 9.6 Total Bilirubin 0.5 AST 23 ALT 18 Alkaline Phosphatase 78 Total Protein 7.2 Albumin 4.3 Globulin 3.0 Albumin/Globulin Ratio 1.4
[2017-08-01] MEDS: Enoxaparin 40 mg Syringe SC SCH (18:29)
--- NOTE | 2017-08-02 | CP.PCM.HP ---
History of Present Illness - History of Present Illness History of Present Illness: This is a 56 y/o female admitted for comminuted fracture of L1 after a fall at homewhile taking a shower. She had a recent left knee surgery Past Patient History - Infectious Disease Hx of Infectious Diseases: None - Tetanus Immunizations Tetanus Immunization: Unknown - Past Medical History & Family History Past Medical History?: Yes - Past Social History Alcohol: Social Drugs: Denies - CARDIAC Hx Hypercholesterolemia: Yes Hx Hypertension: Yes - PULMONARY Hx Asthma: Yes - NEUROLOGICAL Hx Neurological Disorder: No - HEENT Hx HEENT Problems: No - RENAL Hx Chronic Kidney Disease: No - ENDOCRINE/METABOLIC Hx Endocrine Disorders: Yes Hx Diabetes Mellitus Type 2: Yes - HEMATOLOGICAL/ONCOLOGICAL Hx Blood Disorders: No Hx AIDS: No Hx Human Immunodeficiency Virus (HIV): No - INTEGUMENTARY Hx Dermatological Problems: No - MUSCULOSKELETAL/RHEUMATOLOGICAL Hx Arthritis: Yes - GASTROINTESTINAL Hx Gastrointestinal Disorders: No - GENITOURINARY/GYNECOLOGICAL Hx Genitourinary Disorders: No Hx Sexually Transmitted Disorders: No - PSYCHIATRIC Hx Anxiety: Yes Hx Bipolar Disorder: Yes Hx Depression: Yes - SURGICAL HISTORY Hx Cholecystectomy: Yes - ANESTHESIA Hx Anesthesia: Yes Hx Anesthesia Reactions: No Hx Malignant Hyperthermia: No Has any member of the family had a problem w/ anesthesia?: No Meds Allergies/Adverse Reactions: Allergies Allergy/AdvReac Type Severity Reaction Status Date / Time ibuprofen Allergy RASH Verified 03/28/17 04:39 Results - Vital Signs Recent Vital Signs: Last Vital Signs Temp 98.8 F 08/01/17 16:25 Pulse 73 08/01/17 16:25 Resp 20 08/01/17 16:25 BP 109/61 08/01/17 16:25 Pulse Ox 94 L 08/01/17 16:25 - Labs Result Diagrams: 08/01/17 03:10 08/01/17 03:10 Labs: Laboratory Results - last 24 hr 08/01/17 08/01/17 08/01/17 03:10 03:10 05:56 WBC 11.5 H D RBC 4.41 Hgb 13.7 Hct 40.8 MCV 92.5 MCH 31.1 H MCHC 33.6 RDW 13.1 Plt Count 225 MPV 9.3 Neut % (Auto) 70.2 Lymph % (Auto) 21.2 Conway % (Auto) 7.0 Eos % (Auto) 1.3 Baso % (Auto) 0.3 Neut # 8.1 H Lymph # 2.4 [place] # 0.8 Eos # 0.2 Baso # 0.0 Sodium 139 Potassium 4.5 Chloride 101 Carbon Dioxide 27 Anion Gap 16 BUN 20 H Creatinine 0.6 L Est GFR ( Amer) > 60 Est GFR (Non-Af Amer) > 60 POC Glucose (mg/dL) 124 H Random Glucose 156 H Calcium 9.6 Total Bilirubin 0.5 AST 23 ALT 18 Alkaline Phosphatase 78 Total Protein 7.2 Albumin 4.3 Globulin 3.0 Albumin/Globulin Ratio 1.4 08/01/17 08/01/17 18:29 21:38 WBC RBC Hgb Hct MCV MCH MCHC RDW Plt Count MPV Neut % (Auto) Lymph % (Auto) [place] % (Auto) Eos % (Auto) Baso % (Auto) Neut # Lymph # [place] # Eos # Baso # Sodium Potassium Chloride Carbon Dioxide Anion Gap BUN Creatinine Est GFR ( Amer) Est GFR (Non-Af Amer) POC Glucose (mg/dL) 167 H 175 H Random Glucose Calcium Total Bilirubin AST ALT Alkaline Phosphatase Total Protein Albumin Globulin Albumin/Globulin Ratio
[2017-08-02 06:50] LABS: BLOOD UREA NITROGEN 20 mg/dl (7-17); CALCIUM 9.2 mg/dL (8.4-10.2); GFR AFRICAN-AMERICAN > 60; GFR NON-AFRICAN AMERICAN > 60
[2017-08-02 07:06] LABS: PARTIAL THROMBOPLASTIN TIME 33.7 Seconds (25.6-37.1)
[2017-08-02] MEDS: Insulin Regular 100 units/ml SC SCH ×4 (07:45→22:11)
[2017-08-02 07:46] LABS: HEMOGLOBIN 13.6 g/dL (12.0-16.0); MEAN CELL VOLUME 93.3 fl (81.0-99.0); MEAN CORPUSCULAR HEMOGLOBIN 30.6 pg (27.0-31.0); MEAN CORPUSCULAR HGB CONC 32.8 g/dL (33.0-37.0); RBC 4.45 Mil/uL (3.80-5.20); RED CELL DISTRIBUTION WIDTH 13.6 % (11.5-14.5); WHITE BLOOD COUNT 8.8 K/uL (4.8-10.8)
[2017-08-02] MEDS: Pantoprazole 40 mg EC Tab PO SCH (08:26)
[2017-08-02] MEDS: Enoxaparin 40 mg Syringe SC SCH (08:33)
[2017-08-02] MEDS: Lidocaine 5% Patch TD SCH (08:33)
--- NOTE | 2017-08-02 10:49 | MRI ---
PROCEDURE: MR LUMBAR SPINE WITHOUT CONTRAST HISTORY: L1 comminuted fracture COMPARISON: CT lumbar spine from 08/01/2017 TECHNIQUE: Multiecho multiplanar sequences were performed through the lumbar spine without the use of intravenous contrast. FINDINGS: There is normal alignment of the lumbar vertebral bodies. There is normal lumbar lordosis. There is an acute superior endplate compression fracture in the L1 vertebral body with approximately 20% loss of vertebral height and minimal retropulsion of the posterior superior fragment indenting the ventral thecal sac without evidence of compression of the conus or spinal canal stenosis. There is no evidence of epidural hematoma. There is a bone marrow edema/contusion in the superior half of the L1 vertebral body. The conus medullaris terminates at a normal level and the nerve roots of cauda equina are normal. There is mild perivertebral soft tissue/hemorrhage at L1. . Imaged portion of the retroperitoneum is within normal limits. T12-L1: No disc herniation, spinal canal stenosis or neural foraminal narrowing. L1-2: No disc herniation, spinal canal stenosis or neural foraminal narrowing. L2-3: No disc herniation, spinal canal stenosis or neural foraminal narrowing. L3-4: Central annular tear and mild posterior disc bulge without spinal canal stenosis. Mild bilateral facet arthropathy contribute to mild neural foraminal narrowing. L4-5: Central and right paracentral disc protrusion abuts the traversing right L5 nerve root. No central spinal canal stenosis. Moderate bilateral facet arthropathy contribute to moderate neural foraminal narrowing. L5-S1: Central annular tear and small disc protrusion without spinal canal stenosis. Mild bilateral facet arthropathy contribute to moderate neural foraminal narrowing. OTHER FINDINGS: None. IMPRESSION: 1. Acute superior endplate compression fracture in the L1 vertebral body with approximately 20% loss of vertebral height, mild retropulsion of posterior superior fragment without compression of the conus or spinal canal stenosis. Mild perivertebral soft tissue/hemorrhage at L1. No epidural hematoma. 2. Mild multilevel degenerative disc disease, worse at L4-5 with a central and right paracentral disc protrusion which abuts the traversing right L5 nerve root. No central spinal canal stenosis. Moderate facet arthropathy contribute to moderate neural foraminal narrowing.
--- NOTE | 2017-08-02 13:16 | CARD ---
APPROVED REPORT EXAM: Two-dimensional and M-mode echocardiogram with Doppler and color Doppler. Other Information Quality : AverageRhythm : NSR INDICATION Pre-Op 2D DIMENSIONS IVSd1.16 (0.7-1.1cm)LVDd4.32 (3.9-5.9cm) LVOT Diameter2.48 (1.8-2.4cm)PWd0.75 (0.7-1.1cm) IVSs1.38 (0.8-1.2cm)LVDs2.95 (2.5-4.0cm) FS (%) 31.8 %PWs1.31 (0.8-1.2cm) M-Mode DIMENSIONS Left Atrium (MM)3.41 (2.5-4.0cm)Aortic Root3.21 (2.2-3.7cm) Aortic Cusp Exc.1.88 (1.5-2.0cm) Mitral Valve MV E Cnspukig47.2cm/sMV DECEL [id number] A Mwxfxept19.7cm/s MV [id number]/A ratio0.9MVA (PHT)3.45cm2 TDI Lateral E' Peak V9.21cm/sMedial E' Peak V3.42cm/sE/Lateral E'6.8 E/Medial E'18.2 LEFT VENTRICLE The left ventricle is normal size. There is normal left ventricular wall thickness. Left ventricle systolic function is normal. The Ejection Fraction is 60-65%. There is normal LV segmental wall motion. Transmitral Doppler flow pattern is Grade I-abnormal relaxation pattern. RIGHT VENTRICLE The right ventricle is normal size. There is normal right ventricular wall thickness. The right ventricular systolic function is normal. ATRIA The left atrium size is normal. The right atrium size is normal. AORTIC VALVE The aortic valve is normal in structure. No aortic regurgitation is present. There is no aortic valvular stenosis. MITRAL VALVE The mitral valve is normal in structure. There is no evidence of mitral valve prolapse. There is no mitral valve stenosis. There is no mitral valve regurgitation noted. TRICUSPID VALVE The tricuspid valve is normal in structure. There is no tricuspid valve regurgitation noted. PULMONIC VALVE The pulmonary valve is normal in structure. There is no pulmonic valvular regurgitation. GREAT VESSELS The aortic root is normal in size. Due to poor image quality, the IVC could not be assessed. PERICARDIAL EFFUSION The pericardium appears normal. <Conclusion> The left ventricle is normal size. There is normal LV segmental wall motion. Left ventricle systolic function is normal. The Ejection Fraction is 60-65%. Transmitral Doppler flow pattern is Grade I-abnormal relaxation pattern.
--- NOTE | 2017-08-02 18:12 | CP.PCM.CON ---
History of Present Illness - History of Present Illness History of Present Illness: patient seen/examined. full consutl to follow. Normal left ventricular function by echocardiogram. There is no cardiovascular contraindication to the plannned surgery. Past Patient History - Infectious Disease Hx of Infectious Diseases: None - Tetanus Immunizations Tetanus Immunization: Unknown - Past Medical History & Family History Past Medical History?: Yes - Past Social History Alcohol: Social Drugs: Denies - CARDIAC Hx Hypercholesterolemia: Yes Hx Hypertension: Yes - PULMONARY Hx Asthma: Yes - NEUROLOGICAL Hx Neurological Disorder: No - HEENT Hx HEENT Problems: No - RENAL Hx Chronic Kidney Disease: No - ENDOCRINE/METABOLIC Hx Endocrine Disorders: Yes Hx Diabetes Mellitus Type 2: Yes - HEMATOLOGICAL/ONCOLOGICAL Hx Blood Disorders: No Hx AIDS: No Hx Human Immunodeficiency Virus (HIV): No - INTEGUMENTARY Hx Dermatological Problems: No - MUSCULOSKELETAL/RHEUMATOLOGICAL Hx Arthritis: Yes - GASTROINTESTINAL Hx Gastrointestinal Disorders: No - GENITOURINARY/GYNECOLOGICAL Hx Genitourinary Disorders: No Hx Sexually Transmitted Disorders: No - PSYCHIATRIC Hx Anxiety: Yes Hx Bipolar Disorder: Yes Hx Depression: Yes - SURGICAL HISTORY Hx Cholecystectomy: Yes - ANESTHESIA Hx Anesthesia: Yes Hx Anesthesia Reactions: No Hx Malignant Hyperthermia: No Has any member of the family had a problem w/ anesthesia?: No Meds Allergies/Adverse Reactions: Allergies Allergy/AdvReac Type Severity Reaction Status Date / Time ibuprofen Allergy RASH Verified 03/28/17 04:39 - Medications Medications: Current Medications Acetaminophen (Tylenol 325mg Tab) 650 mg PO Q6H PRN PRN Reason: Pain, Mild (1-3) Atorvastatin Calcium (Lipitor) 10 mg PO HS [facility] Last Admin: 08/01/17 21:36 Dose: 10 mg Clonazepam (Klonopin) 1 mg PO BID [facility] Last Admin: 08/02/17 17:01 Dose: 1 mg Cyclobenzaprine HCl (Flexeril) 10 mg PO TID [facility] Last Admin: 08/02/17 17:03 Dose: 10 mg Enoxaparin Sodium (Lovenox) 40 mg SC DAILY [facility] PRN Reason: Protocol Last Admin: 08/02/17 08:33 Dose: 40 mg Fluoxetine HCl (Prozac) 10 mg PO DAILY [facility] Last Admin: 08/02/17 08:29 Dose: 10 mg Hydromorphone HCl (Dilaudid) 1 mg IVP Q4 PRN PRN Reason: Pain, severe (8-10) Last Admin: 08/02/17 14:31 Dose: 1 mg Hydroxyzine HCl (Atarax) 25 mg PO BID PRN PRN Reason: Itching / Pruritus Insulin Human Regular (Humulin R) 0 units SC ACHS [facility] PRN Reason: Protocol Last Admin: 08/02/17 17:02 Dose: Not Given Lidocaine (Lidoderm) 1 ea TD DAILY [facility] Last Admin: 08/02/17 08:33 Dose: 1 ea Lisinopril (Zestril) 10 mg PO DAILY [facility] Last Admin: 08/02/17 08:27 Dose: 10 mg Metformin HCl (Glucophage) 500 mg PO BID [facility] Last Admin: 08/02/17 17:03 Dose: 500 mg Ondansetron HCl (Zofran Inj) 4 mg IVP Q6 PRN PRN Reason: Nausea/Vomiting Pantoprazole Sodium (Protonix Ec Tab) 40 mg PO DAILY [facility] Last Admin: 08/02/17 08:26 Dose: 40 mg Pioglitazone HCl (Actos) 15 mg PO DAILY [facility] Last Admin: 08/02/17 08:28 Dose: 15 mg Pregabalin (Lyrica) 300 mg PO DAILY [facility] Last Admin: 08/02/17 12:00 Dose: 300 mg Sitagliptin Phosphate (Januvia) 100 mg PO DAILY [facility] Last Admin: 08/02/17 08:27 Dose: 100 mg Tramadol HCl (Ultram) 50 mg PO TID PRN PRN Reason: Pain, moderate (4-7) Zolpidem Tartrate (Ambien) 5 mg PO HS PRN PRN Reason: Insomnia Last Admin: 08/01/17 21:40 Dose: 5 mg Results - Vital Signs Recent Vital Signs: Last Vital Signs Temp 98.0 F 08/02/17 15:53 Pulse 69 08/02/17 15:53 Resp 19 08/02/17 15:53 BP 100/61 08/02/17 15:53 Pulse Ox 91 L 08/02/17 15:53 - Labs Result Diagrams: 08/02/17 05:35 08/02/17 05:35 Labs: Laboratory Results - last 24 hr 08/01/17 08/01/17 08/02/17 18:29 21:38 05:21 WBC RBC Hgb Hct MCV MCH MCHC RDW Plt Count PT INR APTT Sodium Potassium Chloride Carbon Dioxide Anion Gap BUN Creatinine Est GFR ( Amer) Est GFR (Non-Af Amer) POC Glucose (mg/dL) 167 H 175 H 157 H Random Glucose Calcium 08/02/17 08/02/17 08/02/17 05:35 05:35 05:35 WBC 8.8 RBC 4.45 Hgb 13.6 Hct 41.6 MCV 93.3 MCH 30.6 MCHC 32.8 L RDW 13.6 Plt Count 231 PT 11.0 INR 1.0 APTT 33.7 Sodium 140 Potassium 4.2 Chloride 102 Carbon Dioxide 25 Anion Gap 17 BUN 20 H Creatinine 0.7 Est GFR ( Amer) > 60 Est GFR (Non-Af Amer) > 60 POC Glucose (mg/dL) Random Glucose 171 H Calcium 9.2 08/02/17 08/02/17 10:42 16:01 WBC RBC Hgb Hct MCV MCH MCHC RDW Plt Count PT INR APTT Sodium Potassium Chloride Carbon Dioxide Anion Gap BUN Creatinine Est GFR ( Amer) Est GFR (Non-Af Amer) POC Glucose (mg/dL) 184 H 129 H Random Glucose Calcium
--- NOTE | 2017-08-02 18:14 | CP.PCM.CON ---
Past Patient History - Infectious Disease Hx of Infectious Diseases: None - Tetanus Immunizations Tetanus Immunization: Unknown - Past Medical History & Family History Past Medical History?: Yes - Past Social History Alcohol: Social Drugs: Denies - CARDIAC Hx Hypercholesterolemia: Yes Hx Hypertension: Yes - PULMONARY Hx Asthma: Yes - NEUROLOGICAL Hx Neurological Disorder: No - HEENT Hx HEENT Problems: No - RENAL Hx Chronic Kidney Disease: No - ENDOCRINE/METABOLIC Hx Endocrine Disorders: Yes Hx Diabetes Mellitus Type 2: Yes - HEMATOLOGICAL/ONCOLOGICAL Hx Blood Disorders: No Hx AIDS: No Hx Human Immunodeficiency Virus (HIV): No - INTEGUMENTARY Hx Dermatological Problems: No - MUSCULOSKELETAL/RHEUMATOLOGICAL Hx Arthritis: Yes - GASTROINTESTINAL Hx Gastrointestinal Disorders: No - GENITOURINARY/GYNECOLOGICAL Hx Genitourinary Disorders: No Hx Sexually Transmitted Disorders: No - PSYCHIATRIC Hx Anxiety: Yes Hx Bipolar Disorder: Yes Hx Depression: Yes - SURGICAL HISTORY Hx Cholecystectomy: Yes - ANESTHESIA Hx Anesthesia: Yes Hx Anesthesia Reactions: No Hx Malignant Hyperthermia: No Has any member of the family had a problem w/ anesthesia?: No Meds Allergies/Adverse Reactions: Allergies Allergy/AdvReac Type Severity Reaction Status Date / Time ibuprofen Allergy RASH Verified 03/28/17 04:39 - Medications Medications: Current Medications Acetaminophen (Tylenol 325mg Tab) 650 mg PO Q6H PRN PRN Reason: Pain, Mild (1-3) Atorvastatin Calcium (Lipitor) 10 mg PO HS [facility] Last Admin: 08/01/17 21:36 Dose: 10 mg Clonazepam (Klonopin) 1 mg PO BID [facility] Last Admin: 08/02/17 17:01 Dose: 1 mg Cyclobenzaprine HCl (Flexeril) 10 mg PO TID [facility] Last Admin: 08/02/17 17:03 Dose: 10 mg Enoxaparin Sodium (Lovenox) 40 mg SC DAILY [facility] PRN Reason: Protocol Last Admin: 08/02/17 08:33 Dose: 40 mg Fluoxetine HCl (Prozac) 10 mg PO DAILY [facility] Last Admin: 08/02/17 08:29 Dose: 10 mg Hydromorphone HCl (Dilaudid) 1 mg IVP Q4 PRN PRN Reason: Pain, severe (8-10) Last Admin: 08/02/17 14:31 Dose: 1 mg Hydroxyzine HCl (Atarax) 25 mg PO BID PRN PRN Reason: Itching / Pruritus Insulin Human Regular (Humulin R) 0 units SC ACHS [facility] PRN Reason: Protocol Last Admin: 08/02/17 17:02 Dose: Not Given Lidocaine (Lidoderm) 1 ea TD DAILY [facility] Last Admin: 08/02/17 08:33 Dose: 1 ea Lisinopril (Zestril) 10 mg PO DAILY [facility] Last Admin: 08/02/17 08:27 Dose: 10 mg Metformin HCl (Glucophage) 500 mg PO BID [facility] Last Admin: 08/02/17 17:03 Dose: 500 mg Ondansetron HCl (Zofran Inj) 4 mg IVP Q6 PRN PRN Reason: Nausea/Vomiting Pantoprazole Sodium (Protonix Ec Tab) 40 mg PO DAILY [facility] Last Admin: 08/02/17 08:26 Dose: 40 mg Pioglitazone HCl (Actos) 15 mg PO DAILY [facility] Last Admin: 08/02/17 08:28 Dose: 15 mg Pregabalin (Lyrica) 300 mg PO DAILY [facility] Last Admin: 08/02/17 12:00 Dose: 300 mg Sitagliptin Phosphate (Januvia) 100 mg PO DAILY [facility] Last Admin: 08/02/17 08:27 Dose: 100 mg Tramadol HCl (Ultram) 50 mg PO TID PRN PRN Reason: Pain, moderate (4-7) Zolpidem Tartrate (Ambien) 5 mg PO HS PRN PRN Reason: Insomnia Last Admin: 08/01/17 21:40 Dose: 5 mg Results - Vital Signs Recent Vital Signs: Last Vital Signs Temp 98.0 F 08/02/17 15:53 Pulse 69 08/02/17 15:53 Resp 19 08/02/17 15:53 BP 100/61 08/02/17 15:53 Pulse Ox 91 L 08/02/17 15:53 - Labs Result Diagrams: 08/02/17 05:35 08/02/17 05:35 Labs: Laboratory Results - last 24 hr 08/01/17 08/01/17 08/02/17 18:29 21:38 05:21 WBC RBC Hgb Hct MCV MCH MCHC RDW Plt Count PT INR APTT Sodium Potassium Chloride Carbon Dioxide Anion Gap BUN Creatinine Est GFR ( Amer) Est GFR (Non-Af Amer) POC Glucose (mg/dL) 167 H 175 H 157 H Random Glucose Calcium 0108/02/17 08/02/17 05:35 05:35 05:35 WBC 8.8 RBC 4.45 Hgb 13.6 Hct 41.6 MCV 93.3 MCH 30.6 MCHC 32.8 L RDW 13.6 Plt Count 231 PT 11.0 INR 1.0 APTT 33.7 Sodium 140 Potassium 4.2 Chloride 102 Carbon Dioxide 25 Anion Gap 17 BUN 20 H Creatinine 0.7 Est GFR ( Amer) > 60 Est GFR (Non-Af Amer) > 60 POC Glucose (mg/dL) Random Glucose 171 H Calcium 9.2 08/02/17 08/02/17 10:42 16:01 WBC RBC Hgb Hct MCV MCH MCHC RDW Plt Count PT INR APTT Sodium Potassium Chloride Carbon Dioxide Anion Gap BUN Creatinine Est GFR ( Amer) Est GFR (Non-Af Amer) POC Glucose (mg/dL) 184 H 129 H Random Glucose Calcium
--- NOTE | 2017-08-02 18:18 | CP.PCM.PN ---
Subjective - Date & Time of Evaluation Date of Evaluation: 08/02/17 Time of Evaluation: 10:20 - Subjective Subjective: Patient seen and examined at bedside with attending-Dr. Oviedo. Patient reports low back pain persists. Denies chest pain, SOB, weakness or dizziness. Tolerating PO diet, low back pain controlled with medication. Objective - Vital Signs/Intake and Output Vital Signs (last 24 hours): Temp Pulse Resp BP Pulse Ox 98.0 F 69 19 100/61 91 L 08/02/17 15:53 08/02/17 15:53 08/02/17 15:53 08/02/17 15:53 08/02/17 15:53 - Medications Medications: Current Medications Acetaminophen (Tylenol 325mg Tab) 650 mg PO Q6H PRN PRN Reason: Pain, Mild (1-3) Atorvastatin Calcium (Lipitor) 10 mg PO HS [facility] Last Admin: 08/01/17 21:36 Dose: 10 mg Clonazepam (Klonopin) 1 mg PO BID [facility] Last Admin: 08/02/17 17:01 Dose: 1 mg Cyclobenzaprine HCl (Flexeril) 10 mg PO TID [facility] Last Admin: 08/02/17 17:03 Dose: 10 mg Enoxaparin Sodium (Lovenox) 40 mg SC DAILY [facility] PRN Reason: Protocol Last Admin: 08/02/17 08:33 Dose: 40 mg Fluoxetine HCl (Prozac) 10 mg PO DAILY [facility] Last Admin: 08/02/17 08:29 Dose: 10 mg Hydromorphone HCl (Dilaudid) 1 mg IVP Q4 PRN PRN Reason: Pain, severe (8-10) Last Admin: 08/02/17 14:31 Dose: 1 mg Hydroxyzine HCl (Atarax) 25 mg PO BID PRN PRN Reason: Itching / Pruritus Insulin Human Regular (Humulin R) 0 units SC ACHS [facility] PRN Reason: Protocol Last Admin: 08/02/17 17:02 Dose: Not Given Lidocaine (Lidoderm) 1 ea TD DAILY [facility] Last Admin: 08/02/17 08:33 Dose: 1 ea Lisinopril (Zestril) 10 mg PO DAILY [facility] Last Admin: 08/02/17 08:27 Dose: 10 mg Metformin HCl (Glucophage) 500 mg PO BID [facility] Last Admin: 08/02/17 17:03 Dose: 500 mg Ondansetron HCl (Zofran Inj) 4 mg IVP Q6 PRN PRN Reason: Nausea/Vomiting Pantoprazole Sodium (Protonix Ec Tab) 40 mg PO DAILY [facility] Last Admin: 08/02/17 08:26 Dose: 40 mg Pioglitazone HCl (Actos) 15 mg PO DAILY [facility] Last Admin: 08/02/17 08:28 Dose: 15 mg Pregabalin (Lyrica) 300 mg PO DAILY [facility] Last Admin: 08/02/17 12:00 Dose: 300 mg Sitagliptin Phosphate (Januvia) 100 mg PO DAILY [facility] Last Admin: 08/02/17 08:27 Dose: 100 mg Tramadol HCl (Ultram) 50 mg PO TID PRN PRN Reason: Pain, moderate (4-7) Zolpidem Tartrate (Ambien) 5 mg PO HS PRN PRN Reason: Insomnia Last Admin: 08/01/17 21:40 Dose: 5 mg - Labs Labs: 08/02/17 05:35 08/02/17 05:35 PT 11.0 Seconds (9.8-13.1) 08/02/17 05:35 INR 1.0 (0.9-1.2) 08/02/17 05:35 APTT 33.7 Seconds (25.6-37.1) 08/02/17 05:35 - Constitutional Appears: No Acute Distress (obese) - Head Exam Head Exam: ATRAUMATIC, NORMOCEPHALIC - Eye Exam Eye Exam: EOMI - ENT Exam ENT Exam: Mucous Membranes Moist - Neck Exam Neck Exam: Full ROM - Respiratory Exam Respiratory Exam: NORMAL BREATHING PATTERN - Cardiovascular Exam Cardiovascular Exam: REGULAR RHYTHM, +S1, +S2 - GI/Abdominal Exam GI & Abdominal Exam: Soft, Normal Bowel Sounds. absent: Tenderness - Extremities Exam Extremities Exam: Full ROM. absent: Calf Tenderness, Pedal Edema - Neurological Exam Neurological Exam: Alert, Awake, CN II-XII Intact, Oriented x3 - Psychiatric Exam Psychiatric exam: Normal Affect, Normal Mood - Skin Skin Exam: Dry, Normal Color, Warm Assessment and Plan - Assessment and Plan (Free Text) Assessment: -continue current management -f/u MRI lumbar spine -Neurosurgery on board:will follow recommendations
[2017-08-03] MEDS: Pantoprazole 40 mg EC Tab PO SCH ×2 (09:10→09:37)
[2017-08-03] MEDS: Enoxaparin 40 mg Syringe SC SCH ×2 (09:10→09:39)
[2017-08-03] MEDS: Lidocaine 5% Patch TD SCH ×2 (09:10→09:36)
[2017-08-03] MEDS: Insulin Regular 100 units/ml SC SCH ×4 (09:33→21:52)
[2017-08-03 16:11] VITALS: RESP 20
--- NOTE | 2017-08-03 18:06 | CP.PCM.PN ---
Subjective - Date & Time of Evaluation Date of Evaluation: 08/03/17 Time of Evaluation: 10:20 - Subjective Subjective: Patient seen and examined at bedside with attending-Dr. Oviedo. Denies chest pain or SOB. Pain is managed with medication. Appetite is good. Patient was evaluated by neurosurgery and is aware she is not to bear any weight and discussed surgical management. Objective - Vital Signs/Intake and Output Vital Signs (last 24 hours): Temp Pulse Resp BP Pulse Ox 97.7 F 83 20 101/68 93 L 08/03/17 16:10 08/03/17 16:10 08/03/17 16:10 08/03/17 16:10 08/03/17 16:10 - Medications Medications: Current Medications Acetaminophen (Tylenol 325mg Tab) 650 mg PO Q6H PRN PRN Reason: Pain, Mild (1-3) Atorvastatin Calcium (Lipitor) 10 mg PO HS [facility] Last Admin: 08/02/17 22:22 Dose: 10 mg Clonazepam (Klonopin) 1 mg PO BID [facility] Last Admin: 08/03/17 16:47 Dose: 1 mg Cyclobenzaprine HCl (Flexeril) 10 mg PO TID [facility] Last Admin: 08/03/17 16:47 Dose: 10 mg Enoxaparin Sodium (Lovenox) 40 mg SC DAILY [facility] PRN Reason: Protocol Last Admin: 08/03/17 09:39 Dose: 40 mg Fluoxetine HCl (Prozac) 10 mg PO DAILY [facility] Last Admin: 08/03/17 09:37 Dose: 10 mg Hydromorphone HCl (Dilaudid) 1 mg IVP Q4 PRN PRN Reason: Pain, severe (8-10) Last Admin: 08/03/17 09:43 Dose: 1 mg Hydroxyzine HCl (Atarax) 25 mg PO BID PRN PRN Reason: Itching / Pruritus Insulin Human Regular (Humulin R) 0 units SC ACHS [facility] PRN Reason: Protocol Last Admin: 08/03/17 16:49 Dose: Not Given Lidocaine (Lidoderm) 1 ea TD DAILY [facility] Last Admin: 08/03/17 09:36 Dose: 1 ea Lisinopril (Zestril) 10 mg PO DAILY [facility] Last Admin: 08/03/17 09:38 Dose: 10 mg Metformin HCl (Glucophage) 500 mg PO BID [facility] Last Admin: 08/03/17 16:47 Dose: 500 mg Ondansetron HCl (Zofran Inj) 4 mg IVP Q6 PRN PRN Reason: Nausea/Vomiting Pantoprazole Sodium (Protonix Ec Tab) 40 mg PO DAILY [facility] Last Admin: 08/03/17 09:37 Dose: 40 mg Pioglitazone HCl (Actos) 15 mg PO DAILY [facility] Last Admin: 08/03/17 09:34 Dose: 15 mg Pregabalin (Lyrica) 300 mg PO DAILY [facility] Last Admin: 08/03/17 09:32 Dose: 300 mg Sitagliptin Phosphate (Januvia) 100 mg PO DAILY [facility] Last Admin: 08/03/17 09:35 Dose: 100 mg Tramadol HCl (Ultram) 50 mg PO TID PRN PRN Reason: Pain, moderate (4-7) Zolpidem Tartrate (Ambien) 5 mg PO HS PRN PRN Reason: Insomnia Last Admin: 08/01/17 21:40 Dose: 5 mg - Labs Labs: 08/02/17 05:35 08/02/17 05:35 PT 11.0 Seconds (9.8-13.1) 08/02/17 05:35 INR 1.0 (0.9-1.2) 08/02/17 05:35 APTT 33.7 Seconds (25.6-37.1) 08/02/17 05:35 - Constitutional Appears: No Acute Distress - Head Exam Head Exam: ATRAUMATIC, NORMOCEPHALIC - Eye Exam Eye Exam: EOMI, PERRL - ENT Exam ENT Exam: Mucous Membranes Moist - Neck Exam Neck Exam: Full ROM - Respiratory Exam Respiratory Exam: Clear to Ausculation Bilateral, NORMAL BREATHING PATTERN - Cardiovascular Exam Cardiovascular Exam: REGULAR RHYTHM, +S1, +S2 - GI/Abdominal Exam GI & Abdominal Exam: Soft, Normal Bowel Sounds - Extremities Exam Extremities Exam: Full ROM. absent: Pedal Edema - Neurological Exam Neurological Exam: Alert, Awake, CN II-XII Intact, Oriented x3 - Psychiatric Exam Psychiatric exam: Normal Affect, Normal Mood - Skin Skin Exam: Dry, Intact, Warm Assessment and Plan - Assessment and Plan (Free Text) Assessment: -continue current management -MRI lumbar spine: compression fracture at L1; multilevel degenerative disc disease worse at L4-L5 with disc protrusion-see full report -Neurosurgery on board:will follow recommendations
[2017-08-04] MEDS: Insulin Regular 100 units/ml SC SCH (06:30)
[2017-08-04 08:19] VITALS: BP 127/80; PULSE 69; TEMP 98.4; O2SAT 98
[2017-08-04] MEDS: Lidocaine 5% Patch TD SCH (09:31)
[2017-08-04] MEDS: Pantoprazole 40 mg EC Tab PO SCH (09:32)
[2017-08-04] MEDS: Enoxaparin 40 mg Syringe SC SCH (09:33)
--- NOTE | 2017-08-04 11:52 | CP.PCM.PCO ---
Assessment/Plan - Assessment/Plan Assessment (Free Text): Pt stable, ambulating on unit without distress despite being told to minimize weight bearing until lumbar fracture is fixed. Per Dr. Aldridge, pt to have lumbar brace prior to d/c. Lumbar brace obtained today and fitted on pt. Pt told to keep on brace while awake and moving around and to minimize movement until sx is done. Pt verbalized understanding. Pt seen and cleared for d/c home by Dr. Oviedo with Rx for percocet. Pt will f/u with Dr. Oviedo on Tuesday to arrange for possible lumbar sx next week. Pt verbalized understanding to d/c plan. RN aware of plan - Problems Patient Problems: Problem List (Active/Current) Problem Status Onset Code Compression fx, lumbar spine Acute S32.000A
--- NOTE | 2017-08-04 12:10 | CP.PCM.DIS ---
Provider - Provider Date of Admission: 08/01/17 02:43 Attending physician: Enrique Oviedo MD Time Spent in preparation of Discharge (in minutes): 30 Diagnosis - Discharge Diagnosis (1) Compression fx, lumbar spine Status: Acute Hospital Course - Lab Results Lab Results: Most Recent Lab Values WBC 8.8 K/uL (4.8-10.8) 08/02/17 05:35 RBC 4.45 Mil/uL (3.80-5.20) 08/02/17 05:35 Hgb 13.6 g/dL (12.0-16.0) 08/02/17 05:35 Hct 41.6 % (34.0-47.0) 08/02/17 05:35 MCV 93.3 fl (81.0-99.0) 08/02/17 05:35 MCH 30.6 pg (27.0-31.0) 08/02/17 05:35 MCHC 32.8 g/dL (33.0-37.0) L 08/02/17 05:35 RDW 13.6 % (11.5-14.5) 08/02/17 05:35 Plt Count 231 K/uL (130-400) 08/02/17 05:35 MPV 9.3 fl (7.2-11.7) 08/01/17 03:10 Neut % (Auto) 70.2 % (50.0-75.0) 08/01/17 03:10 Lymph % (Auto) 21.2 % (20.0-40.0) 08/01/17 03:10 [place] % (Auto) 7.0 % (0.0-10.0) 08/01/17 03:10 Eos % (Auto) 1.3 % (0.0-4.0) 08/01/17 03:10 Baso % (Auto) 0.3 % (0.0-2.0) 08/01/17 03:10 Neut # 8.1 K/uL (1.8-7.0) H 08/01/17 03:10 Lymph # 2.4 K/uL (1.0-4.3) 08/01/17 03:10 [place] # 0.8 K/uL (0.0-0.8) 08/01/17 03:10 Eos # 0.2 K/uL (0.0-0.7) 08/01/17 03:10 Baso # 0.0 K/uL (0.0-0.2) 08/01/17 03:10 PT 11.0 Seconds (9.8-13.1) 08/02/17 05:35 INR 1.0 (0.9-1.2) 08/02/17 05:35 APTT 33.7 Seconds (25.6-37.1) 08/02/17 05:35 Sodium 140 mmol/l (132-148) 08/02/17 05:35 Potassium 4.2 MMOL/L (3.6-5.0) 08/02/17 05:35 Chloride 102 mmol/L (98-107) 08/02/17 05:35 Carbon Dioxide 25 mmol/L (22-30) 08/02/17 05:35 Anion Gap 17 (10-20) 08/02/17 05:35 BUN 20 mg/dl (7-17) H 08/02/17 05:35 Creatinine 0.7 mg/dl (0.7-1.2) 08/02/17 05:35 Est GFR ( Amer) > 60 08/02/17 05:35 Est GFR (Non-Af Amer) > 60 08/02/17 05:35 Random Glucose 171 mg/dL (65-105) H 08/02/17 05:35 POC Glucose (mg/dL) 184 mg/dL (65-110) H 08/04/17 10:53 Calcium 9.2 mg/dL (8.4-10.2) 08/02/17 05:35 Total Bilirubin 0.5 mg/dl (0.2-1.3) 08/01/17 03:10 AST 23 U/L (14-36) 08/01/17 03:10 ALT 18 U/L (9-52) 08/01/17 03:10 Alkaline Phosphatase 78 U/L (38-126) 08/01/17 03:10 Total Protein 7.2 G/DL (6.3-8.2) 08/01/17 03:10 Albumin 4.3 g/dL (3.5-5.0) 08/01/17 03:10 Globulin 3.0 gm/dL (2.2-3.9) 08/01/17 03:10 Albumin/Globulin Ratio 1.4 (1.0-2.1) 08/01/17 03:10 - Hospital Course Hospital Course: Patient was admitted and found to have compression fracture. She is scheduled for surgery next . Patient is seen ambulating without difficulty. Patient has been advised to minimize weight bearing untill fracture is fixed. Spoke with neurosurgery: Dr. Aldridge: > Patient has been advised to keep lumbar brace on. Patient is being given medication for pain and is advised to follow up with Dr. Oviedo on Tuesday. Discharge Exam - Head Exam Head Exam: ATRAUMATIC, NORMOCEPHALIC - Respiratory Exam Respiratory Exam: Clear to PA & Lateral, NORMAL BREATHING PATTERN. absent: Rales, Rhonchi - Cardiovascular Exam Cardiovascular Exam: REGULAR RHYTHM, +S1, +S2 - GI/Abdominal Exam GI & Abdominal Exam: Normal Bowel Sounds, Soft. absent: Tenderness - Neurological Exam Neurological exam: Alert, CN II-XII Intact, Normal Gait, Oriented x3 - Psychiatric Exam Psychiatric exam: Normal Affect - Skin Skin Exam: Dry, Intact, Normal Color Discharge Plan - Discharge Medications Prescriptions: Acetaminophen/Oxycodone Hydr [Percocet 10/325 mg Tab] 1 tab PO Q6H PRN #30 tab PRN Reason: Pain, Severe (8-10) - Follow Up Plan Condition: STABLE Disposition: HOME/ ROUTINE Instructions: Vertebral Compression Fracture (DC), Lumbar Brace (DC) Additional Instructions: Please follow-up with Dr. Oviedo on Tuesday, 08/08 - call the office for appointment [phone] Referrals: Boogie Aldridge MD [Staff Provider] - Dionne Regalado MD [Staff Provider] - Enrique Oviedo MD [Family Provider] - Linda Herrmann MD [Staff Provider] -
== END 2017-08-04 12:11 | disposition home or self-care (01) | DRG 544 ==
LOC: H.ER 22:54 → H.ERHOLD 08-01 02:43 → H.MEDSURG1 08-01 04:34
PROVIDERS: ADMIT Family Medicine; ATTEND Family Medicine
DX: M48.56XA Collapsed vertebra, not elsewhere classified, lumbar region, initial encounter for fracture (principal); E11.9 Type 2 diabetes mellitus without complications; F41.9 Anxiety disorder, unspecified; F31.9 Bipolar disorder, unspecified; J45.909 Unspecified asthma, uncomplicated; M19.90 Unspecified osteoarthritis, unspecified site; I10 Essential (primary) hypertension; E78.00 Pure hypercholesterolemia, unspecified; E78.5 Hyperlipidemia, unspecified; F17.200 Nicotine dependence, unspecified, uncomplicated; M51.36 Other intervertebral disc degeneration, lumbar region; W18.2XXA Fall in (into) shower or empty bathtub, initial encounter; Y92.002 Bathroom of unspecified non-institutional (private) residence as the place of occurrence of the external cause; Y93.E1 Activity, personal bathing and showering

== ENCOUNTER 2017-08-08 03:43 | Inpatient (IN) | payer MEDICARE, OTHER ==
--- NOTE | 2017-08-08 03:52 | ED PDOC ---
HPI: General Adult Time Seen by Provider: 08/08/17 03:52 Chief Complaint (Provider): Back pain History Per: Patient, EMS Additional Complaint(s): 56 year old female presents to ED with severe low back pain. Patient was diagnosed with L1 compression fracture last week and is supposed to have surgery this week. Patient woke up this evening with severe low back pain and she called ambulance to come to ED. Patient last took percocet 7 hours ago. PMD: Dr. Oviedo Past Medical History Reviewed: Historical Data, Nursing Documentation, Vital Signs Vital Signs: Last Vital Signs Temp 100.0 F H 08/08/17 05:10 Pulse 91 H 08/08/17 03:53 Resp 18 08/08/17 03:53 BP 121/64 08/08/17 03:53 Pulse Ox 97 08/08/17 05:15 - Medical History PMH: Anxiety, Arthritis, Asthma, Back Problems, Bipolar Disorder, Depression, Diabetes, HTN, Hypercholesterolemia, Hyperlipidemia, Pneumonia - Surgical History Surgical History: Cholecystectomy Other surgeries: left knee surgery - Family History Family History: States: No Known Family Hx - Living Arrangements Living Arrangements: Alone - Social History Current smoker - smoking cessation education provided: Yes Alcohol: None Drugs: Denies - Home Medications Home Medications: Ambulatory Orders Medication Instructions Recorded Atorvastatin Calcium [Lipitor] 10 mg PO DAILY 09/13/12 Metformin HCl 500 mg PO BID 09/13/12 Zolpidem [Ambien] 10 mg PO HS 05/26/16 clonazePAM [Klonopin] 1 mg PO BID 05/26/16 Lisinopril [Zestril] 10 mg PO DAILY #0 tab 05/31/16 Pioglitazone [Actos] 15 mg PO DAILY #0 tab 05/31/16 Pregabalin [Lyrica] 300 mg PO DAILY #0 capsule 05/31/16 Acetaminophen [Tylenol 325mg tab] 650 mg PO Q6H PRN #50 tab 02/27/17 Acetaminophen/Oxycodone Hydr 1 tab PO Q6H PRN #30 tab 08/04/17 [Percocet 10/325 mg Tab] Cyclobenzaprine [Flexeril] 10 mg PO TID PRN 08/08/17 FLUoxetine [Prozac] 10 mg PO DAILY 08/08/17 Sitagliptin Phos/Metformin HCl 1 tab PO DAILY 02/05/18 [Janumet 50-500 mg Tablet] - Allergies Allergies/Adverse Reactions: Allergies Allergy/AdvReac Type Severity Reaction Status Date / Time ibuprofen Allergy RASH Verified 03/28/17 04:39 Review of Systems ROS Statement: Except As Marked, All Systems Reviewed And Found Negative Constitutional: Negative for: Fever Genitourinary Female: Negative for: Dysuria, Frequency, Incontinence, Hematuria Musculoskeletal: Positive for: Back Pain Physical Exam - Reviewed Nursing Documentation Reviewed: Yes Vital Signs Reviewed: Yes - Physical Exam Appears: Positive for: Well, Non-toxic, No Acute Distress Skin: Negative for: Rash Eye Exam: Positive for: Normal appearance Cardiovascular/Chest: Positive for: Regular Rate, Rhythm Respiratory: Positive for: Normal Breath Sounds Gastrointestinal/Abdominal: Positive for: Soft. Negative for: Tenderness Back: Positive for: Vertebral Tenderness (lumbar region) Neurologic/Psych: Positive for: Alert, Oriented - Laboratory Results Result Diagrams: 08/08/17 04:38 08/08/17 04:38 - ECG Interpretation Of ECG: NSR 80 bpm, no acute finding, reviewed by PA and ED attending O2 Sat by Pulse Oximetry: 97 Pulse Ox Interpretation: Normal - Other Rad bedside chest X-Ray: Interpreted by Me, Viewed By Me X-Ray Interpretation: no acute finding, no interval change Medical Decision Making Medical Decision Making: Impression: intractable back pain due to L1 compression fracture Plan: CBC CMP PT/PTT CXR EKG IVF IV zofran IV dilaudid 5:30 am - Case was d/w PMD, Dr Oviedo who will admit patient. Patient is aware of and agrees with admission. Disposition - Clinical Impression Clinical Impression: Compression fx, lumbar spine, Intractable back pain - Patient ED Disposition Is Patient to be Admitted: Yes - Disposition Disposition Time: 04:06 Condition: FAIR - Pt Status Changed To: Hospital Disposition Of: Inpatient - Admit Certification Admit to Inpatient:: After my assessment, the patient will require hospitalization for at least two midnights. This is because of the severity of symptoms shown, intensity of services needed, and/or the medical risk in this patient being treated as an outpatient. - POA Present On Arrival: None
[2017-08-08] MEDS ORDERED: Sodium Chloride 0.9% 1,000 ML IV STA (03:56)
[2017-08-08 04:42] LABS: BASO # 0.1 K/uL (0.0-0.2); BASO % 0.3 % (0.0-2.0); EOS # 0.1 K/uL (0.0-0.7); EOS % 0.6 % (0.0-4.0); LYMPH # 0.7 K/uL (1.0-4.3); LYMPH % 4.1 % (20.0-40.0); MEAN CELL VOLUME 91.7 fl (81.0-99.0); MEAN CORPUSCULAR HGB CONC 32.7 g/dL (33.0-37.0); MEAN PLATELET VOLUME 9.3 fl (7.2-11.7); MONO # 0.9 K/uL (0.0-0.8); MONO % 5.6 % (0.0-10.0); NEUT # 14.2 K/uL (1.8-7.0); NEUT % 89.4 % (50.0-75.0); PLATELET COUNT 220 K/uL (130-400); RBC 4.32 Mil/uL (3.80-5.20); RED CELL DISTRIBUTION WIDTH 13.2 % (11.5-14.5); WHITE BLOOD COUNT 15.9 K/uL (4.8-10.8)
[2017-08-08 05:17] LABS: ALB/GLOB RATIO 1.2 (1.0-2.1); ALBUMIN 3.9 g/dL (3.5-5.0); ALT/SGPT 28 U/L (9-52); AST/SGOT 27 U/L (14-36); BLOOD UREA NITROGEN 17 mg/dl (7-17); CALCIUM 9.3 mg/dL (8.4-10.2); GFR AFRICAN-AMERICAN > 60; GFR NON-AFRICAN AMERICAN > 60
[2017-08-08 05:19] LABS: INR 1.1 (0.9-1.2); PARTIAL THROMBOPLASTIN TIME 30.4 Seconds (25.6-37.1); PROTHROMBIN TIME 12.1 Seconds (9.8-13.1)
[2017-08-08 05:33] LABS: BANDS 3 % (0-2); EOSINOPHIL 3 % (0-7); LYMPHOCYTE 5 % (20-50); MONOCYTE 8 % (0-10); NEUTROPHIL 81 % (42-75); TOTAL CELLS COUNTED 100
[2017-08-08 05:34] LABS: GIANT PLATELETS PRESENT; PLATELET ESTIMATE NORMAL (NORMAL)
[2017-08-08] MEDS ORDERED: cefTRIAXone (Rocephin) 1 gm Inj ONE (07:49)
[2017-08-08 07:57] LABS: SQUAMOUS EPITHIAL 3 /hpf (0-5); URINE BACTERIA RARE (<OCC); URINE BILIRUBIN NEGATIVE (NEGATIVE); URINE BLOOD NEGATIVE (NEGATIVE); URINE CLARITY SLIGHTY-CLOUDY (Clear); URINE COLOR YELLOW (YELLOW); URINE GLUCOSE (UA) >=500 mg/dL (Normal); URINE LEUKOCYTE ESTERASE TRACE Leu/uL (Negative); URINE NITRATE NEGATIVE (NEGATIVE); URINE PROTEIN NEGATIVE (NEGATIVE)
--- NOTE | 2017-08-08 09:02 | RAD ---
HISTORY: Admission COMPARISON: Comparison chest dated 08/01/2017 FINDINGS: LUNGS: Mildly low lung volumes with crowded bronchovascular markings and mild bibasilar atelectasis. PLEURA: No significant pleural effusion identified, no pneumothorax apparent. CARDIOVASCULAR: Normal. OSSEOUS STRUCTURES: Mild multilevel degenerative spondylosis of the thoracic spine VISUALIZED UPPER ABDOMEN: Normal. OTHER FINDINGS: None. IMPRESSION: Low lung volumes with crowded bronchovascular markings and mild bibasilar atelectasis.
[2017-08-08] MEDS ORDERED: Oxycodone/Acetaminophen 5/325 mg Tab PO PRN (10:34)
[2017-08-08] MEDS ORDERED: Oxycodone/Acetaminophen 5/325 mg Tab ONE (10:37)
[2017-08-08] MEDS: Oxycodone/Acetaminophen 5/325 mg Tab PO PRN ×3 (10:38→21:32)
--- NOTE | 2017-08-08 12:19 | CARD ---
APPROVED REPORT EKG Measurement Heart [id number] <Conclusion> Normal sinus rhythm Nonspecific T wave abnormality Abnormal ECG
[2017-08-08] MEDS: Enoxaparin 40 mg Syringe SC SCH (15:34)
[2017-08-08] MEDS: Insulin Regular 100 units/ml SC SCH ×2 (16:52→22:59)
[2017-08-09 05:59] LABS: HEMOGLOBIN 12.2 g/dL (12.0-16.0); MEAN CELL VOLUME 92.5 fl (81.0-99.0); MEAN CORPUSCULAR HEMOGLOBIN 30.7 pg (27.0-31.0); MEAN CORPUSCULAR HGB CONC 33.2 g/dL (33.0-37.0); RBC 3.96 Mil/uL (3.80-5.20); RED CELL DISTRIBUTION WIDTH 13.4 % (11.5-14.5); WHITE BLOOD COUNT 18.9 K/uL (4.8-10.8)
[2017-08-09 06:01] LABS: BLOOD UREA NITROGEN 14 mg/dl (7-17); CALCIUM 8.9 mg/dL (8.4-10.2); GFR AFRICAN-AMERICAN > 60; GFR NON-AFRICAN AMERICAN > 60
[2017-08-09] MEDS: Oxycodone/Acetaminophen 5/325 mg Tab PO PRN ×3 (08:45→22:55)
[2017-08-09] MEDS: Insulin Regular 100 units/ml SC SCH ×4 (08:50→22:06)
[2017-08-09] MEDS: Enoxaparin 40 mg Syringe SC SCH (08:51)
--- NOTE | 2017-08-09 08:59 | CP.PCM.HP ---
History of Present Illness - History of Present Illness History of Present Illness: 56 YO female who was admitted previously for a L1 compression fracture last week. Patient was schedule for surgery this week however, her pain was not being controlled with home meds. She had also been having subjective fevers for x 3 days and a decreased appetitie. Denies any cough, chest pain, SOB, N/V/D. PCP: Dr. Oviedo PMHX: Anxiety, Arthritis, Asthma, Bipolar Disorder, Depression, Diabetes, HTN, Hypercholesterolemia, Pneumonia Denies: Hepatitis, HIV, Chronic Kidney Disease, Seizures, Sexually Transmitted Disease PSHX: Cholecystectomy Allergies: ibuprofen Family Hx: unknown Social:Smokes occasionally, denies drinking alcohol Present on Admission - Present on Admission Any Indicators Present on Admission: No Past Patient History - Infectious Disease Hx of Infectious Diseases: None - Tetanus Immunizations Tetanus Immunization: Unknown - Past Medical History & Family History Past Medical History?: Yes - Past Social History Smoking Status: Current Some Days Smoker - CARDIAC Hx Hypercholesterolemia: Yes Hx Hypertension: Yes - PULMONARY Hx Asthma: Yes Hx Chronic Obstructive Pulmonary Disease (COPD): Yes Hx Pneumonia: Yes - NEUROLOGICAL Hx Neurological Disorder: No - HEENT Hx HEENT Problems: No Other/Comment: Wears corrective lenses for distance - RENAL Hx Chronic Kidney Disease: No - ENDOCRINE/METABOLIC Hx Endocrine Disorders: Yes Hx Diabetes Mellitus Type 2: Yes - HEMATOLOGICAL/ONCOLOGICAL Hx Blood Disorders: No - INTEGUMENTARY Hx Dermatological Problems: No Other/Comment: Scattered dried,scaled atreas to BUE and BLE extremities - MUSCULOSKELETAL/RHEUMATOLOGICAL Hx Arthritis: Yes Hx Falls: Yes Hx Fractures: Yes - GASTROINTESTINAL Hx Gastrointestinal Disorders: No - GENITOURINARY/GYNECOLOGICAL Hx Genitourinary Disorders: No - PSYCHIATRIC Hx Anxiety: Yes Hx Bipolar Disorder: Yes Hx Depression: Yes Hx Substance Use: No - SURGICAL HISTORY Hx Cholecystectomy: Yes Other/Comment: Recent Hx of Knee arthroscopy of left Knee - ANESTHESIA Hx Anesthesia: Yes Hx Anesthesia Reactions: No Hx Malignant Hyperthermia: No Meds Allergies/Adverse Reactions: Allergies Allergy/AdvReac Type Severity Reaction Status Date / Time ibuprofen Allergy RASH Verified 03/28/17 04:39 Physical Exam - Constitutional Appears: Well, No Acute Distress - Head Exam Head Exam: NORMAL INSPECTION - Eye Exam Eye Exam: Normal appearance - Respiratory Exam Respiratory Exam: Clear to Auscultation Bilateral. absent: Wheezes, Respiratory Distress - Cardiovascular Exam Cardiovascular Exam: REGULAR RHYTHM, +S1, +S2 - GI/Abdominal Exam GI & Abdominal Exam: Normal Bowel Sounds, Soft. absent: Tenderness - Back Exam Back exam: vertebral tenderness - Neurological Exam Neurological exam: Alert, CN II-XII Intact, Oriented x3 - Skin Skin Exam: Normal Color, Warm Results - Vital Signs Recent Vital Signs: Last Vital Signs Temp 98.3 F 08/09/17 00:02 Pulse 71 08/09/17 08:52 Resp 18 08/09/17 00:02 BP 108/68 08/09/17 08:52 Pulse Ox 95 08/09/17 00:02 - Labs Result Diagrams: 08/09/17 05:35 08/09/17 05:35 Labs: Laboratory Results - last 24 hr 08/08/17 08/08/17 08/08/17 11:56 15:39 21:15 WBC RBC Hgb Hct MCV MCH MCHC RDW Plt Count Sodium Potassium Chloride Carbon Dioxide Anion Gap BUN Creatinine Est GFR ( Amer) Est GFR (Non-Af Amer) POC Glucose (mg/dL) 160 H 150 H Random Glucose Calcium Influenza Typ A,B (EIA) Negative for flu a/b 08/09/17 08/09/17 08/09/17 05:34 05:35 05:35 WBC 18.9 H RBC 3.96 Hgb 12.2 Hct 36.6 MCV 92.5 MCH 30.7 MCHC 33.2 RDW 13.4 Plt Count 207 Sodium 140 Potassium 4.2 Chloride 100 Carbon Dioxide 29 Anion Gap 15 BUN 14 Creatinine 0.7 Est GFR ( Amer) > 60 Est GFR (Non-Af Amer) > 60 POC Glucose (mg/dL) 213 H Random Glucose 237 H Calcium 8.9 Influenza Typ A,B (EIA) Assessment & Plan - Assessment and Plan (Free Text) Assessment: 56 YO F w/ vertebral compression fracture is admitted for worsening back pain and fever x 3 days 1) Vertebral compression fracture - Pain controlled with meds - PT 2) Fever:Cause unknown - WBC: 18.9 - Blood no growth in 24 hours. Urine: No growth - Chest X Ray and Chest CT do not show any acute changes - C/W Ceftriaxone and Azithromycin - F/U with morning CBC 3) DM2 Metfromin and pioglitazone 4) DVT prophylaxis - Enoxaparin
--- NOTE | 2017-08-09 11:52 | CT ---
PROCEDURE: CT Chest without contrast HISTORY: Fever, leukocytosis, r/p peumonia COMPARISON: Comparison is made with the previous study dated 03/13/2012 TECHNIQUE: Contiguous axial images were obtained through the chest without intravenous contrast enhancement. Sagittal and coronal reconstructions were performed. Radiation dose (DLP): 691.83 mGy-cm. This CT exam was performed using one or more of the following dose reduction techniques: Automated exposure control, adjustment of the mA and/or kV according to patient size, and/or use of iterative reconstruction technique. FINDINGS: LUNGS: No evidence of infiltrate or consolidation in the lungs to suggest pneumonia. Mild posterior dependent atelectasis noted at the lung bases. MEDIASTINUM: Unremarkable thoracic aorta. No aneurysm. Normal sized heart. The main pulmonary artery is mildly enlarged. No lymphadenopathy. PLEURA: No pleural fluid. No pneumothorax. BONES: There is mild compression deformity at the superior endplate of L1 noted new compared to the previous exam. There is bony retropulsion at the superior aspect of L1 which resulting in moderate spinal stenosis. UPPER ABDOMEN: No evidence of acute pathology in the visualized portion of the upper abdomen. OTHER FINDINGS: None. IMPRESSION: No evidence of pneumonia. Mild compression deformity at the superior endplate of L1 noted, new compared to the previous CT. Bony retropulsion at the level of L1 associated with moderate spinal stenosis.
--- NOTE | 2017-08-09 12:26 | US ---
HISTORY: left calf pain, r/o DVT . PRIORS: None. FINDINGS: 2-D, color and duplex Doppler analysis of the lower extremity venous circulation using routine protocol from the femoral veins through the popliteal veins. Venous compressibility: Normal. Flow and augmentation patterns: Normal. Visualized veins upper third of calf: Normal. Arriola cyst: None. IMPRESSION: No sonographic or Doppler evidence for DVT in left lower extremity.
[2017-08-09] MEDS ORDERED: Sodium Chloride 0.9% 1,000 ML IV SCH (14:00)
[2017-08-09] MEDS: Azithromycin 500 MG in Sodium Chloride 0.9% 250 ML IVPB SCH (14:34)
[2017-08-10] MEDS: Oxycodone/Acetaminophen 5/325 mg Tab PO PRN ×3 (06:06→16:17)
[2017-08-10 07:55] LABS: BASO # 0.1 K/uL (0.0-0.2); BASO % 0.6 % (0.0-2.0); EOS # 0.2 K/uL (0.0-0.7); EOS % 1.9 % (0.0-4.0); HEMOGLOBIN 11.5 g/dL (12.0-16.0); LYMPH # 1.6 K/uL (1.0-4.3); LYMPH % 13.4 % (20.0-40.0); MEAN CELL VOLUME 93.3 fl (81.0-99.0); MEAN CORPUSCULAR HEMOGLOBIN 30.1 pg (27.0-31.0); MEAN CORPUSCULAR HGB CONC 32.2 g/dL (33.0-37.0); MEAN PLATELET VOLUME 9.8 fl (7.2-11.7); MONO # 0.9 K/uL (0.0-0.8); MONO % 7.3 % (0.0-10.0); NEUT # 9.1 K/uL (1.8-7.0); NEUT % 76.8 % (50.0-75.0); RBC 3.83 Mil/uL (3.80-5.20); RED CELL DISTRIBUTION WIDTH 13.3 % (11.5-14.5); WHITE BLOOD COUNT 11.9 K/uL (4.8-10.8)
[2017-08-10] MEDS: Insulin Regular 100 units/ml SC SCH ×4 (08:30→21:37)
[2017-08-10] MEDS: Enoxaparin 40 mg Syringe SC SCH (08:31)
[2017-08-10] MEDS: Azithromycin 500 MG in Sodium Chloride 0.9% 250 ML IVPB SCH (08:35)
--- NOTE | 2017-08-10 15:21 | CP.PCM.PN ---
Subjective - Date & Time of Evaluation Date of Evaluation: 08/10/17 Time of Evaluation: 15:15 - Subjective Subjective: 56 YO F is seen at bedside appears to be doing well. Continues to have some pain, however is controlled with medication. Patient has been afebrile since 4 pm yesterday. PAtient denies chest pain , SOB, N/V/d. Objective - Vital Signs/Intake and Output Vital Signs (last 24 hours): Temp Pulse Resp BP Pulse Ox 97.5 F L 58 L 20 107/61 98 08/10/17 08:12 08/10/17 08:12 08/10/17 08:12 08/10/17 08:12 08/10/17 08:12 - Medications Medications: Current Medications Acetaminophen (Tylenol 325mg Tab) 650 mg PO Q6 PRN PRN Reason: Fever >100.4 F Last Admin: 08/08/17 08:07 Dose: 650 mg Atorvastatin Calcium (Lipitor) 10 mg PO DAILY [facility] Last Admin: 08/10/17 08:29 Dose: 10 mg Clonazepam (Klonopin) 1 mg PO BID [facility] Last Admin: 08/10/17 08:34 Dose: 1 mg Cyclobenzaprine HCl (Flexeril) 10 mg PO TID PRN PRN Reason: Muscle spasm Last Admin: 08/10/17 08:28 Dose: 10 mg Enoxaparin Sodium (Lovenox) 40 mg SC DAILY [facility] PRN Reason: Protocol Last Admin: 08/10/17 08:31 Dose: 40 mg Famotidine (Pepcid) 20 mg PO DAILY [facility] Last Admin: 08/10/17 08:29 Dose: 20 mg Fluoxetine HCl (Prozac) 10 mg PO DAILY [facility] Last Admin: 08/10/17 08:29 Dose: 10 mg Ceftriaxone Sodium 1 gm/ (Sodium Chloride) 100 mls @ 100 mls/hr IVPB DAILY [facility] PRN Reason: Protocol Last Admin: 08/10/17 08:30 Dose: 100 mls/hr Azithromycin 500 mg/ Sodium (Chloride) 250 mls @ 250 mls/hr IVPB DAILY [facility] PRN Reason: Protocol Last Admin: 08/10/17 08:35 Dose: 250 mls/hr Sodium Chloride (Sodium Chloride 0.9%) 1,000 mls @ 80 mls/hr IV .[id number] [facility] Stop: 08/10/17 21:13 Insulin Human Regular (Humulin R) 0 units SC ACHS [facility] PRN Reason: Protocol Last Admin: 08/10/17 11:51 Dose: 1 unit Lisinopril (Zestril) 10 mg PO DAILY [facility] Last Admin: 08/10/17 08:29 Dose: 10 mg Metformin HCl (Glucophage) 500 mg PO BID [facility] Last Admin: 08/10/17 08:29 Dose: 500 mg Oxycodone/Acetaminophen (Percocet 5/325 Mg Tab) 2 tab PO Q4 PRN PRN Reason: Pain, severe (8-10) Stop: 08/11/17 10:34 Last Admin: 08/10/17 11:49 Dose: 2 tab Oxycodone/Acetaminophen (Percocet 5/325 Mg Tab) 1 tab PO Q4 PRN PRN Reason: Pain, moderate (4-7) Stop: 08/11/17 10:35 Pioglitazone HCl (Actos) 15 mg PO DAILY [facility] Last Admin: 08/10/17 08:29 Dose: 15 mg Zolpidem Tartrate (Ambien) 5 mg PO HS [facility] Last Admin: 08/09/17 22:05 Dose: Not Given - Labs Labs: 08/10/17 07:40 08/09/17 05:35 PT 12.1 Seconds (9.8-13.1) 08/08/17 04:38 INR 1.1 (0.9-1.2) 08/08/17 04:38 APTT 30.4 Seconds (25.6-37.1) 08/08/17 04:38 - Constitutional Appears: No Acute Distress - Head Exam Head Exam: NORMAL INSPECTION - Respiratory Exam Respiratory Exam: Clear to Ausculation Bilateral. absent: Rhonchi, Wheezes - Cardiovascular Exam Cardiovascular Exam: REGULAR RHYTHM, +S1, +S2 - GI/Abdominal Exam GI & Abdominal Exam: Soft, Normal Bowel Sounds. absent: Tenderness - Extremities Exam Extremities Exam: Normal Inspection - Back Exam Back Exam: vertebral tenderness - Neurological Exam Neurological Exam: Alert, Awake, CN II-XII Intact, Oriented x3 - Skin Skin Exam: Normal Color, Warm Assessment and Plan - Assessment and Plan (Free Text) Assessment: 56 YO F w/ vertebral compression fracture is admitted for worsening back pain and fever x 3 days 1) Vertebral compression fracture - Pain controlled with meds - PT 2) Fever:Cause unknown. Most likely secondary viral infection. ( resolved) - No fever since 4 pm yesterday - WBC: trending down from 18.9 to 11.9 - Blood no growth in 24 hours. Urine: No growth - Chest X Ray and Chest CT do not show any acute changes - C/W Ceftriaxone and Azithromycin for emperic treatment - F/U with morning CBC 3) DM2 Metfromin and pioglitazone HBA1C: 7.4 4) DVT prophylaxis - Enoxaparin
[2017-08-11] MEDS: Oxycodone/Acetaminophen 5/325 mg Tab PO PRN ×4 (03:21→18:13)
[2017-08-11 07:00] LABS: HEMOGLOBIN 11.7 g/dL (12.0-16.0); MEAN CELL VOLUME 92.9 fl (81.0-99.0); MEAN CORPUSCULAR HEMOGLOBIN 30.7 pg (27.0-31.0); RBC 3.83 Mil/uL (3.80-5.20); RED CELL DISTRIBUTION WIDTH 13.2 % (11.5-14.5); WHITE BLOOD COUNT 8.2 K/uL (4.8-10.8)
[2017-08-11 07:29] LABS: BLOOD UREA NITROGEN 10 mg/dl (7-17); CALCIUM 8.7 mg/dL (8.4-10.2); GFR AFRICAN-AMERICAN > 60; GFR NON-AFRICAN AMERICAN > 60
[2017-08-11] MEDS: Insulin Regular 100 units/ml SC SCH ×4 (08:16→22:11)
[2017-08-11] MEDS: Enoxaparin 40 mg Syringe SC SCH (08:21)
[2017-08-11] MEDS: Azithromycin 500 MG in Sodium Chloride 0.9% 250 ML IVPB SCH (08:29)
[2017-08-11] MEDS ORDERED: Oxycodone/Acetaminophen 5/325 mg Tab PO PRN (13:19)
--- NOTE | 2017-08-11 13:51 | CP.PCM.PN ---
Subjective - Date & Time of Evaluation Date of Evaluation: 08/11/17 Time of Evaluation: 13:48 - Subjective Subjective: 56 YO F is seen resting comfortably in bed. Pain is controlled with medication. PT saw patient and recommend TCU for the patient. She has remained afebrile overnight - Patient denies any chest pain, SOB, N/V/D Objective - Vital Signs/Intake and Output Vital Signs (last 24 hours): Temp Pulse Resp BP Pulse Ox 97.8 F 58 L 20 124/78 99 08/11/17 08:05 08/11/17 08:05 08/11/17 08:05 08/11/17 08:05 08/11/17 08:05 - Medications Medications: Current Medications Acetaminophen (Tylenol 325mg Tab) 650 mg PO Q6 PRN PRN Reason: Fever >100.4 F Last Admin: 08/08/17 08:07 Dose: 650 mg Atorvastatin Calcium (Lipitor) 10 mg PO DAILY [facility] Last Admin: 08/11/17 08:21 Dose: 10 mg Clonazepam (Klonopin) 1 mg PO BID [facility] Last Admin: 08/11/17 08:20 Dose: 1 mg Cyclobenzaprine HCl (Flexeril) 10 mg PO TID PRN PRN Reason: Muscle spasm Last Admin: 08/10/17 22:57 Dose: 10 mg Enoxaparin Sodium (Lovenox) 40 mg SC DAILY [facility] PRN Reason: Protocol Last Admin: 08/11/17 08:21 Dose: 40 mg Famotidine (Pepcid) 20 mg PO DAILY [facility] Last Admin: 08/11/17 08:21 Dose: 20 mg Fluoxetine HCl (Prozac) 10 mg PO DAILY [facility] Last Admin: 08/11/17 08:21 Dose: 10 mg Ceftriaxone Sodium 1 gm/ (Sodium Chloride) 100 mls @ 100 mls/hr IVPB DAILY [facility] PRN Reason: Protocol Last Admin: 08/11/17 08:24 Dose: 100 mls/hr Azithromycin 500 mg/ Sodium (Chloride) 250 mls @ 250 mls/hr IVPB DAILY [facility] PRN Reason: Protocol Last Admin: 08/11/17 08:29 Dose: 250 mls/hr Insulin Human Regular (Humulin R) 0 units SC ACHS [facility] PRN Reason: Protocol Last Admin: 08/11/17 12:44 Dose: Not Given Lisinopril (Zestril) 10 mg PO DAILY [facility] Last Admin: 08/11/17 08:21 Dose: 10 mg Metformin HCl (Glucophage) 500 mg PO BID [facility] Last Admin: 08/11/17 08:21 Dose: 500 mg Oxycodone/Acetaminophen (Percocet 5/325 Mg Tab) 2 tab PO Q4 PRN PRN Reason: Pain, severe (8-10) Stop: 08/14/17 13:19 Oxycodone/Acetaminophen (Percocet 5/325 Mg Tab) 1 tab PO Q4 PRN PRN Reason: Pain, moderate (4-7) Stop: 08/14/17 13:20 Pioglitazone HCl (Actos) 15 mg PO DAILY [facility] Last Admin: 08/11/17 08:20 Dose: 15 mg Zolpidem Tartrate (Ambien) 5 mg PO HS [facility] Last Admin: 08/10/17 21:41 Dose: 5 mg - Labs Labs: 08/11/17 06:24 08/11/17 06:24 PT 12.1 Seconds (9.8-13.1) 08/08/17 04:38 INR 1.1 (0.9-1.2) 08/08/17 04:38 APTT 30.4 Seconds (25.6-37.1) 08/08/17 04:38 - Constitutional Appears: No Acute Distress - Head Exam Head Exam: NORMAL INSPECTION - Respiratory Exam Respiratory Exam: Clear to Ausculation Bilateral, NORMAL BREATHING PATTERN. absent: Rhonchi, Wheezes - Cardiovascular Exam Cardiovascular Exam: REGULAR RHYTHM, +S1, +S2 - GI/Abdominal Exam GI & Abdominal Exam: Soft, Normal Bowel Sounds. absent: Tenderness - Extremities Exam Extremities Exam: absent: Calf Tenderness - Back Exam Back Exam: vertebral tenderness - Neurological Exam Neurological Exam: Alert, Awake, CN II-XII Intact, Oriented x3 - Skin Skin Exam: Normal Color, Warm Assessment and Plan - Assessment and Plan (Free Text) Assessment: 56 YO F w/ vertebral compression fracture is admitted for worsening back pain and fever x 3 days 1) Vertebral compression fracture - Pain controlled with meds - PT - Will follow up with neurosurg regarding date - Patient may need to be trasfered to TCU untill she can get surgery 2) Fever:Cause unknown. Most likely secondary viral infection. ( resolved) - Has remained afebrile over 24 hours - WBC: trending down from 18.9 to 8.2 - Blood no growth in 24 hours. Urine: No growth - Chest X Ray and Chest CT do not show any acute changes - C/W Ceftriaxone and Azithromycin for emperic treatment 3) DM2 Metfromin and pioglitazone HBA1C: 7.4 4) DVT prophylaxis - Enoxaparin
[2017-08-11 23:40] VITALS: PULSE 60
[2017-08-12] MEDS: Oxycodone/Acetaminophen 5/325 mg Tab PO PRN ×2 (02:08→08:41)
[2017-08-12] MEDS: Insulin Regular 100 units/ml SC SCH (07:43)
[2017-08-12 08:25] VITALS: RESP 20; TEMP 97.4; O2SAT 97
[2017-08-12] MEDS: Azithromycin 500 MG in Sodium Chloride 0.9% 250 ML IVPB SCH (08:34)
[2017-08-12] MEDS: Enoxaparin 40 mg Syringe SC SCH (08:35)
[2017-08-12 08:36] VITALS: BP 158/83
--- NOTE | 2017-08-12 14:59 | CP.PCM.DIS ---
Provider - Provider Date of Admission: 08/08/17 05:33 Attending physician: Enrique Hall MD Time Spent in preparation of Discharge (in minutes): 30 Diagnosis - Discharge Diagnosis (1) Compression fx, lumbar spine Status: Acute Hospital Course - Lab Results Lab Results: Micro Results 08/08/17 11:30 Blood Blood Culture - Preliminary NO GROWTH AFTER 4 DAYS 08/08/17 07:30 Urine,Clean Catch Urine Culture - Final No Growth (<1,000 CFU/ML) Most Recent Lab Values WBC 8.2 K/uL (4.8-10.8) 08/11/17 06:24 RBC 3.83 Mil/uL (3.80-5.20) 08/11/17 06:24 Hgb 11.7 g/dL (12.0-16.0) L 08/11/17 06:24 Hct 35.6 % (34.0-47.0) 08/11/17 06:24 MCV 92.9 fl (81.0-99.0) 08/11/17 06:24 MCH 30.7 pg (27.0-31.0) 08/11/17 06:24 MCHC 33.0 g/dL (33.0-37.0) 08/11/17 06:24 RDW 13.2 % (11.5-14.5) 08/11/17 06:24 Plt Count 246 K/uL (130-400) 08/11/17 06:24 MPV 9.8 fl (7.2-11.7) 08/10/17 07:40 Neut % (Auto) 76.8 % (50.0-75.0) H 08/10/17 07:40 Lymph % (Auto) 13.4 % (20.0-40.0) L 08/10/17 07:40 [place] % (Auto) 7.3 % (0.0-10.0) 08/10/17 07:40 Eos % (Auto) 1.9 % (0.0-4.0) 08/10/17 07:40 Baso % (Auto) 0.6 % (0.0-2.0) 08/10/17 07:40 Neut # (Auto) 9.1 K/uL (1.8-7.0) H 08/10/17 07:40 Lymph # (Auto) 1.6 K/uL (1.0-4.3) 08/10/17 07:40 [place] # (Auto) 0.9 K/uL (0.0-0.8) H 08/10/17 07:40 Eos # (Auto) 0.2 K/uL (0.0-0.7) 08/10/17 07:40 Baso # (Auto) 0.1 K/uL (0.0-0.2) 08/10/17 07:40 Neutrophils % (Manual) 81 % (42-75) H 08/08/17 04:38 Band Neutrophils % 3 % (0-2) H 08/08/17 04:38 Lymphocytes % (Manual) 5 % (20-50) L 08/08/17 04:38 Monocytes % (Manual) 8 % (0-10) 08/08/17 04:38 Eosinophils % (Manual) 3 % (0-7) 08/08/17 04:38 Platelet Estimate Normal (NORMAL) 08/08/17 04:38 Giant Platelets Present 08/08/17 04:38 RBC Morphology Normal (NORMAL) 08/08/17 04:38 PT 12.1 Seconds (9.8-13.1) 08/08/17 04:38 INR 1.1 (0.9-1.2) 08/08/17 04:38 APTT 30.4 Seconds (25.6-37.1) 08/08/17 04:38 Sodium 145 mmol/l (132-148) 08/11/17 06:24 Potassium 4.1 MMOL/L (3.6-5.0) 08/11/17 06:24 Chloride 109 mmol/L (98-107) H 08/11/17 06:24 Carbon Dioxide 29 mmol/L (22-30) 08/11/17 06:24 Anion Gap 11 (10-20) 08/11/17 06:24 BUN 10 mg/dl (7-17) 08/11/17 06:24 Creatinine 0.7 mg/dl (0.7-1.2) 08/11/17 06:24 Est GFR ( Amer) > 60 08/11/17 06:24 Est GFR (Non-Af Amer) > 60 08/11/17 06:24 POC Glucose (mg/dL) 111 mg/dL (65-110) H 08/12/17 11:01 Random Glucose 118 mg/dL (65-105) H 08/11/17 06:24 Hemoglobin A1c 7.4 % (4.2-6.5) H D 08/09/17 09:29 Lactic Acid 1.5 MMOL/L (0.7-2.1) 08/09/17 11:26 Calcium 8.7 mg/dL (8.4-10.2) 08/11/17 06:24 Total Bilirubin 0.6 mg/dl (0.2-1.3) 08/08/17 04:38 AST 27 U/L (14-36) 08/08/17 04:38 ALT 28 U/L (9-52) 08/08/17 04:38 Alkaline Phosphatase 107 U/L (38-126) 08/08/17 04:38 Total Protein 7.3 G/DL (6.3-8.2) 08/08/17 04:38 Albumin 3.9 g/dL (3.5-5.0) 08/08/17 04:38 Globulin 3.4 gm/dL (2.2-3.9) 08/08/17 04:38 Albumin/Globulin Ratio 1.2 (1.0-2.1) 08/08/17 04:38 Procalcitonin 0.08 NG/ML (0.19-0.49) L 08/09/17 11:26 Urine Color Yellow (YELLOW) 08/08/17 07:30 Urine Clarity Slighty-cloudy (Clear) 08/08/17 07:30 Urine pH 5.0 (5.0-8.0) 08/08/17 07:30 Ur Specific [place] 1.025 (1.003-1.030) 08/08/17 07:30 Urine Protein Negative mg/dL (NEGATIVE) 08/08/17 07:30 Urine Glucose (UA) >=500 mg/dL (Normal) 08/08/17 07:30 Urine Ketones Negative mg/dL (NEGATIVE) 08/08/17 07:30 Urine Blood Negative (NEGATIVE) 08/08/17 07:30 Urine Nitrate Negative (NEGATIVE) 08/08/17 07:30 Urine Bilirubin Negative (NEGATIVE) 08/08/17 07:30 Urine Urobilinogen 2.0 mg/dL (0.2-1.0) H 08/08/17 07:30 Ur Leukocyte Esterase Trace [place]/uL (Negative) 08/08/17 07:30 Urine RBC (Auto) 3 /hpf (0-3) 08/08/17 07:30 Urine Microscopic WBC 2 /hpf (0-5) 08/08/17 07:30 Ur Squamous Epith Cells 3 /hpf (0-5) 08/08/17 07:30 Urine Bacteria Rare (<OCC) 08/08/17 07:30 Influenza Typ A,B (EIA) Negative for flu a/b (NEGATIVE) 08/08/17 11:56 - Hospital Course Hospital Course: 56 YO F w/ vertebral compression fracture was admitted for worsening back pain 1) Vertebral compression fracture - Pain controlled with meds - Advised to wear back brace - Surgery has been scheduled for Aug 24 2) DM2 c/w Metfromin and pioglitazone HBA1C: 7.4 Patient is doing well. Pain is controlled with medication. She is stable for discharge. Advised to keep back brace on. ER precausions have been given. Discharge Exam - Head Exam Head Exam: NORMAL INSPECTION - Eye Exam Eye Exam: Normal appearance - Respiratory Exam Respiratory Exam: Clear to PA & Lateral, NORMAL BREATHING PATTERN. absent: Respiratory Distress - GI/Abdominal Exam GI & Abdominal Exam: Normal Bowel Sounds, Soft. absent: Tenderness - Neurological Exam Neurological exam: Alert, CN II-XII Intact, Oriented x3 - Skin Skin Exam: Normal Color, Warm Discharge Plan - Discharge Medications Prescriptions: Oxycodone HCl/Acetaminophen [Percocet 10-325 mg Tablet] 1 each PO Q4 #20 tablet - Follow Up Plan Condition: STABLE Disposition: HOME/ ROUTINE Instructions: Vertebral Compression Fracture (DC) Additional Instructions: follow up with dr hall 2-3 days Referrals: Boogie Aldridge MD [Staff Provider] - Enrique Hall MD [Staff Provider] -
== END 2017-08-12 11:45 | disposition home or self-care (01) | DRG 544 ==
LOC: H.ER 03:43 → H.ERHOLD 05:33 → H.MEDSURG1 10:30
PROVIDERS: ADMIT Family Medicine; ATTEND Family Medicine
DX: M48.56XA Collapsed vertebra, not elsewhere classified, lumbar region, initial encounter for fracture (principal); B34.9 Viral infection, unspecified; E11.9 Type 2 diabetes mellitus without complications; E78.5 Hyperlipidemia, unspecified; I10 Essential (primary) hypertension; J44.9 Chronic obstructive pulmonary disease, unspecified; E78.00 Pure hypercholesterolemia, unspecified; F31.9 Bipolar disorder, unspecified; M19.90 Unspecified osteoarthritis, unspecified site; J45.909 Unspecified asthma, uncomplicated; F41.9 Anxiety disorder, unspecified; F17.210 Nicotine dependence, cigarettes, uncomplicated; Z88.6 Allergy status to analgesic agent; Z87.01 Personal history of pneumonia (recurrent)

== ENCOUNTER 2017-08-19 05:28 | Emergency (ER) | payer MEDICARE, OTHER ==
[2017-08-19 05:40] VITALS: TEMP 98.1
[2017-08-19] MEDS ORDERED: Oxycodone/Acetaminophen 5/325 mg Tab PO STA (05:58)
--- NOTE | 2017-08-19 06:27 | ED PDOC ---
HPI: Back Time Seen by Provider: 08/19/17 05:45 Chief Complaint (Nursing): Back Pain Chief Complaint (Provider): Back Pain History Per: Patient History/Exam Limitations: no limitations Current Symptoms Are (Timing): Still Present Previous Symptoms: Prior Injury Associated Symptoms: None Additional Complaint(s): 56 female presents to ED with complaints of back pain and has a past medical history of diabetes mellitus, HTN, and hyperlipidemia. Notes back pain is secondary to fractured lumbar vertebrae status post fall sustained on 2017. Patient states she was supposed to have surgery with Dr. Aldridge but the appointment was never scheduled. Reports that she has run out of prescribed Percocet and is unable to reach Dr. Oviedo for a refill/appointment information. (-) bowel/bladder incontinnce or numbness/weakness in the legs. PCP: Ivelisse - Risk Factors AAA Risk Factors: Pos: Older Than 49 Years Of Age Past Medical History Reviewed: Historical Data, Nursing Documentation, Vital Signs Vital Signs: Last Vital Signs Temp 98.1 F 08/19/17 05:37 Pulse 69 08/19/17 05:57 Resp 16 08/19/17 05:57 BP 112/62 08/19/17 05:57 Pulse Ox 98 08/19/17 05:57 - Medical History PMH: Anxiety, Arthritis, Asthma, Back Problems, Bipolar Disorder, COPD, Depression, Diabetes, Fractures, HTN, Hypercholesterolemia, Hyperlipidemia, Pneumonia Denies: Hepatitis, HIV, Chronic Kidney Disease, Seizures, Sexually Transmitted Disease - Surgical History Surgical History: Cholecystectomy Denies: No Surg Hx - Family History Family History: States: Unknown Family Hx - Living Arrangements Living Arrangements: With Family - Immunization History Hx Tetanus Toxoid Vaccination: No Hx Influenza Vaccination: No Hx Pneumococcal Vaccination: No - Home Medications Home Medications: Ambulatory Orders Medication Instructions Recorded Atorvastatin Calcium [Lipitor] 10 mg PO DAILY 09/13/12 Zolpidem [Ambien] 10 mg PO HS 05/26/16 clonazePAM [Klonopin] 1 mg PO BID 05/26/16 Lisinopril [Zestril] 10 mg PO DAILY #0 tab 05/31/16 Pioglitazone [Actos] 15 mg PO DAILY #0 tab 05/31/16 Pregabalin [Lyrica] 300 mg PO DAILY #0 capsule 05/31/16 Cyclobenzaprine [Flexeril] 10 mg PO TID PRN 08/08/17 FLUoxetine [Prozac] 10 mg PO DAILY 08/08/17 Sitagliptin Phos/Metformin HCl 1 tab PO DAILY 08/08/17 [Janumet 50-500 mg Tablet] Oxycodone HCl/Acetaminophen 1 each PO Q4 #20 tablet 08/12/17 [Percocet 10-325 mg Tablet] - Allergies Allergies/Adverse Reactions: Allergies Allergy/AdvReac Type Severity Reaction Status Date / Time ibuprofen Allergy RASH Verified 08/19/17 05:37 Review of Systems ROS Statement: Except As Marked, All Systems Reviewed And Found Negative Gastrointestinal: Negative for: Other ((-) bowel incontinence) Genitourinary Female: Negative for: Incontinence Musculoskeletal: Positive for: Back Pain Neurological: Negative for: Weakness, Numbness Physical Exam - Reviewed Nursing Documentation Reviewed: Yes Vital Signs Reviewed: Yes - Physical Exam Appears: Positive for: Non-toxic, Uncomfortable (Crying) Skin: Positive for: Normal Color, Warm, Dry Neck: Positive for: Normal, Painless ROM, Supple Cardiovascular/Chest: Positive for: Regular Rate, Rhythm. Negative for: Murmur Respiratory: Positive for: Normal Breath Sounds. Negative for: Respiratory Distress Gastrointestinal/Abdominal: Positive for: Soft. Negative for: Tenderness Back: Positive for: Vertebral Tenderness (midline and paravertebral tenderness in the lumbar spine). Negative for: Normal Inspection (Wearing a back brace), Other ((-) saddle anesthesia) Extremity: Positive for: Normal ROM. Negative for: Deformity Neurologic/Psych: Positive for: Alert, Oriented. Negative for: Motor/Sensory Deficits (distal sensations intact, motor function intact) - ECG O2 Sat by Pulse Oximetry: 98 (RA) Pulse Ox Interpretation: Normal Medical Decision Making Medical Decision Makin Initial impression: back pain secondary to lumbar fracture Initial plan: * Flexeril 10mg PO * Percocet 1 tab PO * Re-eval [address] Oviedo, who states patient should follow up today in office after ED discharge. * Morphine 4mg IVP * Re-eval 0700 Patient will be signed out to Dr. Smith pending re-evaluation s/p morphine. Scribe Attestation: Documented by Deja Zhong acting as a scribe for Олег Baarjas MD. Scribe Attestation: All medical record entries made by the Scribe were at my direction and personally dictated by me. I have reviewed the chart and agree that the record accurately reflects my personal performance of the history, physical exam, medical decision making, and the department course for this patient. I have also personally directed, reviewed, and agree with the discharge instructions and disposition. Disposition - Clinical Impression Clinical Impression: Low back pain - Patient ED Disposition Is Patient to be Admitted: Transfer of Care - Disposition Referrals: Enrique Oviedo MD [Staff Provider] - Disposition: Transfer of Care Disposition Time: 07:00 Condition: STABLE Forms: [employer] (Georgian) Patient Signed Over To: Ed Smith Handoff Comments: Pending re-evaluation s/p medication
[2017-08-19] MEDS ORDERED: Morphine 4 MG/ML VIAL ONE (07:03)
--- NOTE | 2017-08-19 07:38 | ED PDOC ---
- ECG O2 Sat by Pulse Oximetry: 98 (RA) Pulse Ox Interpretation: Normal - Progress Re-evaluation Time: 09:20 Condition: Re-examined, Improved Medical Decision Making Medical Decision Making: Time: 7:00 Patient signed out to me by pending reevaluation Disposition Doctor Will See Patient In The: Office Counseled Patient/Family Regarding: Studies Performed, Diagnosis, Need For Followup - Clinical Impression Clinical Impression: Low back pain - POA Present On Arrival: None - Disposition Referrals: Enrique Oviedo MD [Primary Care Provider] - Disposition: Routine/Home Disposition Time: 09:27 Condition: GOOD Additional Instructions: Follow up with your PCP today. Instructions: Low Back Pain (DC)
[2017-08-19 09:45] VITALS: BP 115/73; PULSE 83; RESP 18
[2017-08-22 12:43] VITALS: O2SAT 98
== END 2017-08-19 09:45 | disposition home or self-care (01) ==
LOC: H.ER 05:28
DX: M54.5 Low back pain (principal); E11.9 Type 2 diabetes mellitus without complications; E78.00 Pure hypercholesterolemia, unspecified; J44.9 Chronic obstructive pulmonary disease, unspecified; I10 Essential (primary) hypertension
CPT/HCPCS: 96372; 99283; J2270

== ENCOUNTER 2017-08-20 03:28 | Emergency (ER) | payer MEDICARE, OTHER ==
[2017-08-20 03:47] VITALS: BP 145/74; PULSE 61; RESP 17; TEMP 98.6; O2SAT 98
--- NOTE | 2017-08-20 04:08 | ED PDOC ---
HPI: Back Time Seen by Provider: 08/20/17 03:39 Chief Complaint (Nursing): Back Pain Chief Complaint (Provider): Back Pain History Per: Patient Additional Complaint(s): 56 female presents to ED with complaints of back pain and has a past medical history of diabetes mellitus, HTN, and hyperlipidemia. Notes back pain is secondary to fractured lumbar vertebrae status post fall sustained on 2017. Patient states she was supposed to have surgery with Dr. Aldridge but the appointment was never scheduled. Reports that she has run out of prescribed Percocet and is unable to reach Dr. Oviedo for a refill/appointment information. (-) bowel/bladder incontinence or numbness/weakness in the legs. Pt seen and evaluated in the ED yesterday for the same and was treated in house with Percocet, Flexeril and Morphne. Dr. Oviedo was contacted and appointment was scheduled for later in the day. Pt reports that she did go to office but ultimately waited too long and left. Pain returned PCP: Ivelisse Past Medical History Reviewed: Historical Data, Nursing Documentation, Vital Signs Vital Signs: Last Vital Signs Temp 98.6 F 08/20/17 03:44 Pulse 61 08/20/17 03:44 Resp 17 08/20/17 03:44 BP 145/74 08/20/17 03:44 Pulse Ox 98 08/20/17 03:44 - Medical History PMH: Anxiety, Arthritis, Asthma, Back Problems, Bipolar Disorder, COPD, Depression, Diabetes, Fractures, HTN, Hypercholesterolemia, Hyperlipidemia, Pneumonia Denies: Hepatitis, HIV, Chronic Kidney Disease, Seizures, Sexually Transmitted Disease - Surgical History Surgical History: Cholecystectomy - Family History Family History: States: Unknown Family Hx - Immunization History Hx Tetanus Toxoid Vaccination: No Hx Influenza Vaccination: No Hx Pneumococcal Vaccination: No - Home Medications Home Medications: Ambulatory Orders Medication Instructions Recorded Atorvastatin Calcium [Lipitor] 10 mg PO DAILY 09/13/12 Zolpidem [Ambien] 10 mg PO HS 05/26/16 clonazePAM [Klonopin] 1 mg PO BID 05/26/16 Lisinopril [Zestril] 10 mg PO DAILY #0 tab 05/31/16 Pioglitazone [Actos] 15 mg PO DAILY #0 tab 05/31/16 Pregabalin [Lyrica] 300 mg PO DAILY #0 capsule 11/28/16 Cyclobenzaprine [Flexeril] 10 mg PO TID PRN 08/08/17 FLUoxetine [Prozac] 10 mg PO DAILY 08/08/17 Sitagliptin Phos/Metformin HCl 1 tab PO DAILY 08/08/17 [Janumet 50-500 mg Tablet] Oxycodone HCl/Acetaminophen 1 each PO Q4 #20 tablet 08/12/17 [Percocet 10-325 mg Tablet] oxyCODONE/Acetaminophen [Percocet 1 ea PO Q6 PRN #5 tab 08/20/17 5/325 mg Tab] - Allergies Allergies/Adverse Reactions: Allergies Allergy/AdvReac Type Severity Reaction Status Date / Time ibuprofen Allergy RASH Verified 08/19/17 05:37 Review of Systems ROS Statement: Except As Marked, All Systems Reviewed And Found Negative Musculoskeletal: Positive for: Back Pain Physical Exam - Reviewed Nursing Documentation Reviewed: Yes Vital Signs Reviewed: Yes - Physical Exam Appears: Positive for: Well, Non-toxic, No Acute Distress Head Exam: Positive for: ATRAUMATIC, NORMAL INSPECTION, NORMOCEPHALIC Skin: Positive for: Normal Color, Warm, DRY Eye Exam: Positive for: EOMI, Normal appearance, PERRL ENT: Positive for: Normal ENT Inspection Neck: Positive for: Normal, Painless ROM Cardiovascular/Chest: Positive for: Regular Rate, Rhythm Respiratory: Positive for: CNT, Normal Breath Sounds Gastrointestinal/Abdominal: Positive for: Normal Exam, Bowel Sounds, Soft Back: Positive for: Normal Inspection. Negative for: Vertebral Tenderness, Decreased ROM, Muscle Spasm Extremity: Positive for: Normal ROM Neurologic/Psych: Positive for: Alert, Oriented - ECG O2 Sat by Pulse Oximetry: 98 Medical Decision Making Medical Decision Making: Medicated with Percocet and Morphine IM while in ED On re-eval, Pt doing well, reports pain improved. Pt ambulatory to restroom with steady gait Pt declined any repeat imaging studies at this time, requesting only something for pain Disposition - Clinical Impression Clinical Impression: Back disorder - Patient ED Disposition Is Patient to be Admitted: No - Disposition Disposition: Routine/Home Disposition Time: 05:54 Condition: STABLE Prescriptions: oxyCODONE/Acetaminophen [Percocet 5/325 mg Tab] 1 ea PO Q6 PRN #5 tab PRN Reason: Pain, Severe (8-10) Instructions: Low Back Pain in Adults Forms: Gr[employer] (Bermudian)
[2017-08-20] MEDS ORDERED: Oxycodone/Acetaminophen 5/325 mg Tab PO STA (04:09)
[2017-08-20] MEDS ORDERED: Oxycodone/Acetaminophen 5/325 mg Tab ONE (04:25)
== END 2017-08-20 05:53 | disposition home or self-care (01) ==
LOC: H.ER 03:28
DX: M48.9 Spondylopathy, unspecified (principal)
CPT/HCPCS: 96372; 99281; J2270

== ENCOUNTER 2017-08-22 18:20 | Inpatient (IN) | payer MEDICARE, OTHER ==
[2017-08-22] MEDS ORDERED: Morphine 4 MG/ML VIAL ONE ×2 (20:15→23:23)
--- NOTE | 2017-08-22 20:38 | ED PDOC ---
HPI: Back Time Seen by Provider: 08/22/17 19:05 Chief Complaint (Nursing): Back Pain Chief Complaint (Provider): vestibule fracture and lower back pain History Per: Patient History/Exam Limitations: no limitations Current Symptoms Are (Timing): Still Present Quality Of Discomfort: "Pain" Additional Complaint(s): 57 year old female with a past medical history of high cholesterol and diabetes presents to the ED with vertebral fracture and lower back pain. Reports she is due for surgery with Dr. Aldridge in two days. Visited the doctors office for pain medication and Percocet does not provide her any relief. States if she is discharged, she will return with the same complaint. Denies any injury, urinary or bowel patterns, and no numbness. Of note: Patient seen in ED already. She had an appointment with Dr. Oviedo but was not seen because she states he was not in the office last Tuesday. PMD: May Oviedo Past Medical History Reviewed: Historical Data, Nursing Documentation, Vital Signs Vital Signs: Last Vital Signs Temp 98 F 08/22/17 18:25 Pulse 76 08/22/17 18:25 Resp 18 08/22/17 18:25 BP 135/82 08/22/17 18:25 Pulse Ox 96 08/22/17 18:25 - Medical History PMH: Anxiety, Arthritis, Asthma, Back Problems, Bipolar Disorder, COPD, Depression, Diabetes, Fractures, HTN, Hypercholesterolemia, Hyperlipidemia, Pneumonia Denies: Hepatitis, HIV, Chronic Kidney Disease, Seizures, Sexually Transmitted Disease - Surgical History Surgical History: Cholecystectomy - Family History Family History: States: Unknown Family Hx - Immunization History Hx Tetanus Toxoid Vaccination: No Hx Influenza Vaccination: No Hx Pneumococcal Vaccination: No - Home Medications Home Medications: Ambulatory Orders Medication Instructions Recorded Atorvastatin Calcium [Lipitor] 10 mg PO DAILY 09/13/12 Zolpidem [Ambien] 10 mg PO HS 05/26/16 clonazePAM [Klonopin] 1 mg PO BID 05/26/16 Lisinopril [Zestril] 10 mg PO DAILY #0 tab 05/31/16 Pioglitazone [Actos] 15 mg PO DAILY #0 tab 05/31/16 Pregabalin [Lyrica] 300 mg PO DAILY #0 capsule 05/31/16 Cyclobenzaprine [Flexeril] 10 mg PO TID PRN 08/08/17 FLUoxetine [Prozac] 10 mg PO DAILY 08/08/17 Sitagliptin Phos/Metformin HCl 2 tab PO DAILY 08/08/17 [Janumet 50-500 mg Tablet] Oxycodone HCl/Acetaminophen 1 each PO Q4 #20 tablet 08/12/17 [Percocet 10-325 mg Tablet] oxyCODONE/Acetaminophen [Percocet 1 ea PO Q6 PRN #5 tab 08/20/17 5/325 mg Tab] - Allergies Allergies/Adverse Reactions: Allergies Allergy/AdvReac Type Severity Reaction Status Date / Time ibuprofen Allergy RASH Verified 08/19/17 05:37 Review of Systems ROS Statement: Except As Marked, All Systems Reviewed And Found Negative Genitourinary Female: Negative for: Frequency, Other (bowel patterns) Musculoskeletal: Positive for: Back Pain (lower) Neurological: Negative for: Numbness Physical Exam - Reviewed Nursing Documentation Reviewed: Yes Vital Signs Reviewed: Yes - Physical Exam Appears: Positive for: Non-toxic, Uncomfortable Head Exam: Positive for: ATRAUMATIC, NORMAL INSPECTION, NORMOCEPHALIC Skin: Positive for: Normal Color, Warm, Dry Eye Exam: Positive for: EOMI, Normal appearance, PERRL ENT: Positive for: Normal ENT Inspection Neck: Positive for: Normal, Painless ROM, Supple. Negative for: Decreased ROM Cardiovascular/Chest: Positive for: Regular Rate, Rhythm. Negative for: Murmur , Bradycardia Respiratory: Positive for: Normal Breath Sounds. Negative for: Decreased Breath Sounds, Accessory Muscle Use, Wheezing Gastrointestinal/Abdominal: Positive for: Normal Exam, Bowel Sounds, Soft. Negative for: Tenderness Back: Positive for: Vertebral Tenderness, Other (paravertebral tenderness; wearing back brace) Extremity: Positive for: Normal ROM. Negative for: Pedal Edema, Deformity Neurologic/Psych: Positive for: Alert, Oriented (x3), Gait - Laboratory Results Result Diagrams: 08/22/17 20:51 08/22/17 20:51 - ECG O2 Sat by Pulse Oximetry: 96 (RA) Pulse Ox Interpretation: Normal Medical Decision Making Medical Decision Making: Time: 19:42 Initial Impression: Back pain 2/2 to vertebral fracture Initial Plan: --BMP --Neuro Surgery Consult --CBC --Chest X-ray --Morphine 4mg --Urinalysis --Reevaluation Spoken with Dr. Oviedo. Patient will be admitted. Dr. Aldridge called back, aware of patient. Documented by Ana Chou acting as a scribe for Олег Barajas MD. All medical record entries made by the Scribe were at my direction and personally dictated by me. I have reviewed the chart and agree that the record accurately reflects my personal performance of the history, physical exam, medical decision making, and the department course for this patient. I have also personally directed, reviewed, and agree with the discharge instructions and disposition. Disposition - Clinical Impression Clinical Impression: Intractable back pain - Disposition Disposition Time: 20:00 Condition: IMPROVED
[2017-08-22 21:03] LABS: BASO # 0.1 K/uL (0.0-0.2); BASO % 1.2 % (0.0-2.0); EOS # 0.1 K/uL (0.0-0.7); HEMOGLOBIN 12.9 g/dL (12.0-16.0); LYMPH # 3.2 K/uL (1.0-4.3); LYMPH % 32.2 % (20.0-40.0); MEAN CELL VOLUME 92.4 fl (81.0-99.0); MEAN CORPUSCULAR HEMOGLOBIN 29.8 pg (27.0-31.0); MEAN CORPUSCULAR HGB CONC 32.3 g/dL (33.0-37.0); MEAN PLATELET VOLUME 9.8 fl (7.2-11.7); MONO # 0.6 K/uL (0.0-0.8); MONO % 6.2 % (0.0-10.0); NEUT # 5.9 K/uL (1.8-7.0); NEUT % 59.4 % (50.0-75.0); RBC 4.33 Mil/uL (3.80-5.20); RED CELL DISTRIBUTION WIDTH 13.9 % (11.5-14.5); WHITE BLOOD COUNT 9.9 K/uL (4.8-10.8)
[2017-08-22 21:09] LABS: BLOOD UREA NITROGEN 25 mg/dl (7-17); CALCIUM 9.7 mg/dL (8.4-10.2); GFR AFRICAN-AMERICAN > 60; GFR NON-AFRICAN AMERICAN > 60
[2017-08-22 21:16] LABS: SQUAMOUS EPITHIAL 4 /hpf (0-5); URINE BACTERIA RARE (<OCC); URINE BILIRUBIN NEGATIVE (NEGATIVE); URINE BLOOD NEGATIVE (NEGATIVE); URINE CLARITY SLIGHTY-CLOUDY (Clear); URINE COLOR YELLOW (YELLOW); URINE GLUCOSE (UA) 50 mg/dL (Normal); URINE LEUKOCYTE ESTERASE SMALL Leu/uL (Negative); URINE NITRATE NEGATIVE (NEGATIVE); URINE PROTEIN NEGATIVE (NEGATIVE); URINE UROBILINOGEN 0.2-1.0 mg/dL (0.2-1.0)
[2017-08-22] MEDS ORDERED: Lidocaine 1% Inj (20ml) ONE (21:19)
[2017-08-23] MEDS ORDERED: Oxycodone/Acetaminophen 5/325 mg Tab PO PRN (02:30)
[2017-08-23 08:45] VITALS: RESP 20
[2017-08-23] MEDS ORDERED: PREGABALIN 300 MG PO SCH (09:00)
[2017-08-23] MEDS ORDERED: SITAGLIPTIN PHOS PO SCH (09:00)
[2017-08-23] MEDS ORDERED: METFORMIN HCL PO SCH (09:00)
--- NOTE | 2017-08-23 09:21 | RAD ---
HISTORY: back pain COMPARISON: Chest radiograph dated 08/08/2017 FINDINGS: LUNGS: No active pulmonary disease. PLEURA: No significant pleural effusion identified, no pneumothorax apparent. CARDIOVASCULAR: Normal. OSSEOUS STRUCTURES: Unchanged. VISUALIZED UPPER ABDOMEN: Right upper quadrant surgical clips redemonstrated. OTHER FINDINGS: None. IMPRESSION: No active disease.
--- NOTE | 2017-08-23 12:57 | CP.PCM.HP ---
History of Present Illness - History of Present Illness History of Present Illness: 57 y/o F with PMhx of DM and lumbar vertebral Fx was admitted yesterday to hosp for intractable pain and surgical eval for lumbar vertebral fx. Present on Admission - Present on Admission Any Indicators Present on Admission: Yes Review of Systems - Review of Systems All systems: reviewed and no additional remarkable complaints except - Musculoskeletal Musculoskeletal: Back Pain Past Patient History - Infectious Disease Hx of Infectious Diseases: None - Tetanus Immunizations Tetanus Immunization: Unknown - Past Medical History & Family History Past Medical History?: Yes - Past Social History Smoking Status: Light Smoker < 10 Cigarettes Daily - CARDIAC Hx Hypercholesterolemia: Yes Hx Hypertension: Yes - PULMONARY Hx Asthma: No Hx Chronic Obstructive Pulmonary Disease (COPD): Yes Hx Pneumonia: Yes - NEUROLOGICAL Hx Seizures: No - HEENT Hx HEENT Problems: Yes Other/Comment: Wears corrective lenses for distance - RENAL Hx Chronic Kidney Disease: No - ENDOCRINE/METABOLIC Hx Endocrine Disorders: Yes Hx Diabetes Mellitus Type 2: Yes - HEMATOLOGICAL/ONCOLOGICAL Hx Human Immunodeficiency Virus (HIV): No - INTEGUMENTARY Hx Dermatological Problems: Yes Other/Comment: Hx contact dermatitis - MUSCULOSKELETAL/RHEUMATOLOGICAL Hx Arthritis: Yes Hx Fractures: Yes - GASTROINTESTINAL Hx Gastrointestinal Disorders: Yes Hx Colitis: Yes - GENITOURINARY/GYNECOLOGICAL Hx Sexually Transmitted Disorders: No - PSYCHIATRIC Hx Anxiety: Yes Hx Bipolar Disorder: Yes Hx Depression: Yes - SURGICAL HISTORY Hx Cholecystectomy: Yes - ANESTHESIA Hx Anesthesia: Yes Hx Anesthesia Reactions: No Hx Malignant Hyperthermia: No Meds Allergies/Adverse Reactions: Allergies Allergy/AdvReac Type Severity Reaction Status Date / Time ibuprofen Allergy RASH Verified 08/19/17 05:37 Physical Exam - Constitutional Appears: Non-toxic, In Acute Distress (Mild. Back pain) - Eye Exam Eye Exam: EOMI, PERRL - ENT Exam ENT Exam: Mucous Membranes Moist - Respiratory Exam Respiratory Exam: Clear to Auscultation Bilateral, NORMAL BREATHING PATTERN - Cardiovascular Exam Cardiovascular Exam: REGULAR RHYTHM, +S1, +S2 - GI/Abdominal Exam GI & Abdominal Exam: Normal Bowel Sounds, Soft - Extremities Exam Extremities exam: Negative for: pedal edema - Back Exam Back exam: paraspinal tenderness, vertebral tenderness - Neurological Exam Neurological exam: Alert, Oriented x3 - Psychiatric Exam Psychiatric exam: Normal Affect, Normal Mood - Skin Skin Exam: Normal Color, Warm Results - Vital Signs Recent Vital Signs: Last Vital Signs Temp 97.8 F 02/20/18 08:44 Pulse 66 08/23/17 08:44 Resp 20 08/23/17 08:44 BP 103/68 08/23/17 08:44 Pulse Ox 92 L 08/23/17 08:44 - Labs Result Diagrams: 08/22/17 20:51 08/22/17 20:51 Labs: Laboratory Results - last 24 hr 08/22/17 08/22/17 08/22/17 20:51 20:51 20:51 WBC 9.9 RBC 4.33 Hgb 12.9 Hct 40.0 MCV 92.4 MCH 29.8 MCHC 32.3 L RDW 13.9 Plt Count 304 MPV 9.8 Neut % (Auto) 59.4 Lymph % (Auto) 32.2 [place] % (Auto) 6.2 Eos % (Auto) 1.0 Baso % (Auto) 1.2 Neut # (Auto) 5.9 Lymph # (Auto) 3.2 [place] # (Auto) 0.6 Eos # (Auto) 0.1 Baso # (Auto) 0.1 Sodium 141 Potassium 3.9 Chloride 104 Carbon Dioxide 24 Anion Gap 17 BUN 25 H Creatinine 0.9 Est GFR ( Amer) > 60 Est GFR (Non-Af Amer) > 60 POC Glucose (mg/dL) Random Glucose 177 H Calcium 9.7 Urine Color Yellow Urine Clarity Slighty-cloudy Urine pH 5.0 Ur Specific [place] 1.028 Urine Protein Negative Urine Glucose (UA) 50 Urine Ketones Negative Urine Blood Negative Urine Nitrate Negative Urine Bilirubin Negative Urine Urobilinogen 0.2-1.0 Ur Leukocyte Esterase Small Urine RBC (Auto) 1 Urine Microscopic WBC 7 H Ur Squamous Epith Cells 4 Urine Bacteria Rare 08/23/17 08/23/17 05:45 11:14 WBC RBC Hgb Hct MCV MCH MCHC RDW Plt Count MPV Neut % (Auto) Lymph % (Auto) [place] % (Auto) Eos % (Auto) Baso % (Auto) Neut # (Auto) Lymph # (Auto) [place] # (Auto) Eos # (Auto) Baso # (Auto) Sodium Potassium Chloride Carbon Dioxide Anion Gap BUN Creatinine Est GFR ( Amer) Est GFR (Non-Af Amer) POC Glucose (mg/dL) 156 H 154 H Random Glucose Calcium Urine Color Urine Clarity Urine pH Ur Specific [place] Urine Protein Urine Glucose (UA) Urine Ketones Urine Blood Urine Nitrate Urine Bilirubin Urine Urobilinogen Ur Leukocyte Esterase Urine RBC (Auto) Urine Microscopic WBC Ur Squamous Epith Cells Urine Bacteria Assessment & Plan - Assessment and Plan (Free Text) Assessment: 57 y/o F with Hx of Dm and HTN admitted for lumbar vertebral fx and intractable pain Lumbar vertebral Fx Failing conservative treatment Intractable lower back pain Pain control Pain management consult Neurosurgery consul: Lumbar spine CT ordered. F/U results and recs For poss Sx tomorrow
--- NOTE | 2017-08-23 13:03 | CP.PCM.CON ---
History of Present Illness - History of Present Illness History of Present Illness: 57F with L1 compression fracture presents to ER complaining of intractable back pain. Patient was scheduled for fusion on 08/24 but states the pain was too bad so she came to the ER. She also complains of pain shooting down back of left leg. Denies numbness/tingling/weakness. Review of Systems - Review of Systems All systems: reviewed and no additional remarkable complaints except - Musculoskeletal Musculoskeletal: As Per HPI - Neurological Neurological: As Per HPI - Hematologic/Lymphatic Hematologic: absent: As Per HPI, Easy Bleeding, Easy Bruising, Lymphadenopathy, Other Past Patient History - Infectious Disease Hx of Infectious Diseases: None - Tetanus Immunizations Tetanus Immunization: Unknown - Past Medical History & Family History Past Medical History?: Yes Past Family History: Reviewed and not pertinent - Past Social History Smoking Status: Light Smoker < 10 Cigarettes Daily - CARDIAC Hx Hypercholesterolemia: Yes Hx Hypertension: Yes - PULMONARY Hx Asthma: No Hx Chronic Obstructive Pulmonary Disease (COPD): Yes Hx Pneumonia: Yes - NEUROLOGICAL Hx Seizures: No - HEENT Hx HEENT Problems: Yes Other/Comment: Wears corrective lenses for distance - RENAL Hx Chronic Kidney Disease: No - ENDOCRINE/METABOLIC Hx Endocrine Disorders: Yes Hx Diabetes Mellitus Type 2: Yes - HEMATOLOGICAL/ONCOLOGICAL Hx Human Immunodeficiency Virus (HIV): No - INTEGUMENTARY Hx Dermatological Problems: Yes Other/Comment: Hx contact dermatitis - MUSCULOSKELETAL/RHEUMATOLOGICAL Hx Arthritis: Yes Hx Fractures: Yes - GASTROINTESTINAL Hx Gastrointestinal Disorders: Yes Hx Colitis: Yes - GENITOURINARY/GYNECOLOGICAL Hx Sexually Transmitted Disorders: No - PSYCHIATRIC Hx Anxiety: Yes Hx Bipolar Disorder: Yes Hx Depression: Yes - SURGICAL HISTORY Hx Cholecystectomy: Yes - ANESTHESIA Hx Anesthesia: Yes Hx Anesthesia Reactions: No Hx Malignant Hyperthermia: No Meds Allergies/Adverse Reactions: Allergies Allergy/AdvReac Type Severity Reaction Status Date / Time ibuprofen Allergy RASH Verified 08/19/17 05:37 - Medications Medications: Current Medications Atorvastatin Calcium (Lipitor) 10 mg PO DAILY [facility] Last Admin: 08/23/17 09:13 Dose: 10 mg Clonazepam (Klonopin) 1 mg PO BID [facility] Cyclobenzaprine HCl (Flexeril) 10 mg PO TID PRN PRN Reason: Muscle spasm Last Admin: 08/23/17 09:10 Dose: 10 mg Fluoxetine HCl (Prozac) 10 mg PO DAILY [facility] Last Admin: 08/23/17 09:10 Dose: 10 mg Hydromorphone HCl (Dilaudid) 1 mg IVP Q4 PRN PRN Reason: Pain, moderate (4-7) Hydromorphone HCl (Dilaudid) 2 mg IVP Q4 PRN PRN Reason: Pain, severe (8-10) Last Admin: 08/23/17 09:07 Dose: 2 mg Lisinopril (Zestril) 10 mg PO DAILY [facility] Metformin HCl (Glucophage) 500 mg PO BID [facility] Last Admin: 08/23/17 09:10 Dose: 500 mg Ondansetron HCl (Zofran Inj) 4 mg IVP Q8 PRN PRN Reason: Nausea/Vomiting Oxycodone/Acetaminophen (Percocet 5/325 Mg Tab) 2 tab PO Q4 PRN PRN Reason: Pain, Mild (1-3) Stop: 08/26/17 02:31 Pioglitazone HCl (Actos) 15 mg PO DAILY [facility] Last Admin: 08/23/17 09:10 Dose: 15 mg Pregabalin (Lyrica) 300 mg PO DAILY [facility] Last Admin: 08/23/17 09:13 Dose: 300 mg Sitagliptin Phosphate (Januvia) 100 mg PO DAILY [facility] Last Admin: 08/23/17 09:10 Dose: 100 mg Zolpidem Tartrate (Ambien) 5 mg PO [facility] Physical Exam - Constitutional Appears: Well, No Acute Distress - Head Exam Head Exam: ATRAUMATIC - Neck Exam Neck exam: Positive for: Full Rom, Normal Inspection - Respiratory Exam Respiratory Exam: NORMAL BREATHING PATTERN - Neurological Exam Neurological exam: Alert, Oriented x3 - Expanded Neurological Exam Expanded Sensory exam: Lower Extremity Light Touch: Normal Neuro motor strength exam: Left Lower Extremity: 5 (5/5 great toe ext, ankle PF , knee flex/ext 4+ DF), Right Lower Extremity: 5 (5/great toe ext, knee flex/ ext 4+/5 ankle DF/PF) - Psychiatric Exam Psychiatric exam: Normal Affect, Normal Mood - Skin Skin Exam: Dry, Intact, Normal Color, Warm Results - Vital Signs Recent Vital Signs: Last Vital Signs Temp 97.8 F 08/23/17 08:44 Pulse 66 08/23/17 08:44 Resp 20 08/23/17 08:44 BP 103/68 08/23/17 08:44 Pulse Ox 92 L 02/20/18 08:44 - Labs Result Diagrams: 08/22/17 20:51 08/22/17 20:51 Labs: Laboratory Results - last 24 hr 08/22/17 08/22/17 08/22/17 20:51 20:51 20:51 WBC 9.9 RBC 4.33 Hgb 12.9 Hct 40.0 MCV 92.4 MCH 29.8 MCHC 32.3 L RDW 13.9 Plt Count 304 MPV 9.8 Neut % (Auto) 59.4 Lymph % (Auto) 32.2 [place] % (Auto) 6.2 Eos % (Auto) 1.0 Baso % (Auto) 1.2 Neut # (Auto) 5.9 Lymph # (Auto) 3.2 [place] # (Auto) 0.6 Eos # (Auto) 0.1 Baso # (Auto) 0.1 Sodium 141 Potassium 3.9 Chloride 104 Carbon Dioxide 24 Anion Gap 17 BUN 25 H Creatinine 0.9 Est GFR ( Amer) > 60 Est GFR (Non-Af Amer) > 60 POC Glucose (mg/dL) Random Glucose 177 H Calcium 9.7 Urine Color Yellow Urine Clarity Slighty-cloudy Urine pH 5.0 Ur Specific [place] 1.028 Urine Protein Negative Urine Glucose (UA) 50 Urine Ketones Negative Urine Blood Negative Urine Nitrate Negative Urine Bilirubin Negative Urine Urobilinogen 0.2-1.0 Ur Leukocyte Esterase Small Urine RBC (Auto) 1 Urine Microscopic WBC 7 H Ur Squamous Epith Cells 4 Urine Bacteria Rare 08/23/17 08/23/17 05:45 11:14 WBC RBC Hgb Hct MCV MCH MCHC RDW Plt Count MPV Neut % (Auto) Lymph % (Auto) [place] % (Auto) Eos % (Auto) Baso % (Auto) Neut # (Auto) Lymph # (Auto) [place] # (Auto) Eos # (Auto) Baso # (Auto) Sodium Potassium Chloride Carbon Dioxide Anion Gap BUN Creatinine Est GFR ( Amer) Est GFR (Non-Af Amer) POC Glucose (mg/dL) 156 H 154 H Random Glucose Calcium Urine Color Urine Clarity Urine pH Ur Specific [place] Urine Protein Urine Glucose (UA) Urine Ketones Urine Blood Urine Nitrate Urine Bilirubin Urine Urobilinogen Ur Leukocyte Esterase Urine RBC (Auto) Urine Microscopic WBC Ur Squamous Epith Cells Urine Bacteria - Impressions Impression: Patient Name / ID : NISSA GARNICA E / [id number] Exam Date : 08/01/2017 17:09:35 ( Approved ) Study Comment : Sex / Age : F / [id number] Creator : Janiya Cota MD Dictator : Janiya Cota MD Crap Shooter : [employer] Keeper : Janiya Cota MD Approver2 : Report Date : 08/02/2017 10:42:47 My Comment : PROCEDURE: MR LUMBAR SPINE WITHOUT CONTRAST HISTORY: L1 comminuted fracture COMPARISON: CT lumbar spine from 08/01/2017 TECHNIQUE: Multiecho multiplanar sequences were performed through the lumbar spine without the use of intravenous contrast. FINDINGS: There is normal alignment of the lumbar vertebral bodies. There is normal lumbar lordosis. There is an acute superior endplate compression fracture in the L1 vertebral body with approximately 20% loss of vertebral height and minimal retropulsion of the posterior superior fragment indenting the ventral thecal sac without evidence of compression of the conus or spinal canal stenosis. There is no evidence of epidural hematoma. There is a bone marrow edema/contusion in the superior half of the L1 vertebral body. The conus medullaris terminates at a normal level and the nerve roots of cauda equina are normal. There is mild perivertebral soft tissue/hemorrhage at L1. . Imaged portion of the retroperitoneum is within normal limits. T12-L1: No disc herniation, spinal canal stenosis or neural foraminal narrowing. L1-2: No disc herniation, spinal canal stenosis or neural foraminal narrowing. L2-3: No disc herniation, spinal canal stenosis or neural foraminal narrowing. L3-4: Central annular tear and mild posterior disc bulge without spinal canal stenosis. Mild bilateral facet arthropathy contribute to mild neural foraminal narrowing. L4-5: Central and right paracentral disc protrusion abuts the traversing right L5 nerve root. No central spinal canal stenosis. Moderate bilateral facet arthropathy contribute to moderate neural foraminal narrowing. L5-S1: Central annular tear and small disc protrusion without spinal canal stenosis. Mild bilateral facet arthropathy contribute to moderate neural foraminal narrowing. OTHER FINDINGS: None. IMPRESSION: 1. Acute superior endplate compression fracture in the L1 vertebral body with approximately 20% loss of vertebral height, mild retropulsion of posterior superior fragment without compression of the conus or spinal canal stenosis. Mild perivertebral soft tissue/hemorrhage at L1. No epidural hematoma. 2. Mild multilevel degenerative disc disease, worse at L4-5 with a central and right paracentral disc protrusion which abuts the traversing right L5 nerve root. No central spinal canal stenosis. Moderate facet arthropathy contribute to moderate neural foraminal narrowing. Assessment & Plan (1) Compression fracture of L2 lumbar vertebra Assessment and Plan: For OR tomorrow for T12-L2 fusion NPO p MN T&S f/u labs risks/benefits/alt of operative mgmt of fx explained to patient and she verbalized understanding and consented to procedure. Patient understands that the pain coming from lower lumbar spine and radiculopathy may not be improved after the surgery, which is just to addresss the fracture. d/w Dr. Aldridge, agrees with above Status: Acute
--- NOTE | 2017-08-23 13:32 | CT ---
PROCEDURE: CT Lumbar Spine without contrast HISTORY: L1 compression fracture COMPARISON: None. TECHNIQUE: Axial computed tomography images were obtained of the lumbar spine without the use of intravenous contrast. Coronal and sagittal reformatted images were created and reviewed. Radiation dose: Total exam DLP = 1159.83 mGy-cm. This CT exam was performed using one or more of the following dose reduction techniques: Automated exposure control, adjustment of the mA and/or kV according to patient size, and/or use of iterative reconstruction technique. FINDINGS: VERTEBRAE: Superior L1 vertebral endplate fracture with posterior displacement of the posterior superior corner fragment. There is increasing posterior displacement as compared to the prior CT examination of 08/01/2017. The posterior displacement is increased from 8 mm to 10 mm for this posterior superior corner fragment. There is mild spinal stenosis. There is minimal paraspinous infiltration without rosa hematoma. There is no evidence of epidural hematoma on this examination. Remaining vertebral bodies are maintained in height. The transverse processes and posterior elements are intact. DISCS/SPINAL CANAL/NEURAL FORAMINA: Mild disc bulge at L3-4. No spinal or neural foraminal stenosis. Right parasagittal broad-based disc protrusion at L4-5 superimposed upon diffuse disc bulge. Mild bilateral neural foraminal stenosis. No spinal stenosis. Diffuse disc bulge at L5-S1 with bilateral degenerative facet arthropathy and moderate bilateral neural foraminal stenosis. No central spinal stenosis. OTHER FINDINGS: None. IMPRESSION: 2 mm increased posterior displacement of the posterior superior corner fragment of the L1 vertebral body status post superior L1 vertebral endplate compression fracture. This is in comparison to prior CT examination of 08/01/2017. Mild spinal stenosis. Additional findings as above are unchanged from prior CT and MRI examinations.
[2017-08-23 19:02] LABS: PARTIAL THROMBOPLASTIN TIME 28.7 Seconds (25.6-37.1); PROTHROMBIN TIME 10.9 Seconds (9.8-13.1)
[2017-08-24 00:28] VITALS: BP 124/75; PULSE 100; TEMP 98; O2SAT 96
--- NOTE | 2017-08-24 11:13 | CP.PCM.CON ---
History of Present Illness - History of Present Illness History of Present Illness: 57 yo woman w/ known L1 compression fracture, likely from a fall post knee surgery on 08/01/17, is referred for pain management. Patient was originally scheduled for surgery but that was canceled. Patient isn't aware of having seen a pain physician in the past and isn't aware that she's on Lyrica. Apparently she doesn't have a full grasp of her condition, only that she wants the pain treated. She's complaining of pain in mid-back, with radiation down the left leg to the foot. Aside from 20% decreased in height of L1 on MRI, there are no pathologies that explain the radicular pain down the left leg. Since admission , she's been on Dilaudid IV and home medication of Lyrica has been continued. Repeat CT scan showed slight progression of retropulsion of the L1 fracture segment. Past Patient History - Infectious Disease Hx of Infectious Diseases: None - Tetanus Immunizations Tetanus Immunization: Unknown - Past Medical History & Family History Past Medical History?: Yes Past Family History: Reviewed and not pertinent - Past Social History Smoking Status: Light Smoker < 10 Cigarettes Daily - CARDIAC Hx Hypercholesterolemia: Yes Hx Hypertension: Yes - PULMONARY Hx Asthma: No Hx Chronic Obstructive Pulmonary Disease (COPD): Yes Hx Pneumonia: Yes - NEUROLOGICAL Hx Seizures: No - HEENT Hx HEENT Problems: Yes Other/Comment: Wears corrective lenses for distance - RENAL Hx Chronic Kidney Disease: No - ENDOCRINE/METABOLIC Hx Endocrine Disorders: Yes Hx Diabetes Mellitus Type 2: Yes - HEMATOLOGICAL/ONCOLOGICAL Hx Human Immunodeficiency Virus (HIV): No - INTEGUMENTARY Hx Dermatological Problems: Yes Other/Comment: Hx contact dermatitis - MUSCULOSKELETAL/RHEUMATOLOGICAL Hx Arthritis: Yes Hx Fractures: Yes - GASTROINTESTINAL Hx Gastrointestinal Disorders: Yes Hx Colitis: Yes - GENITOURINARY/GYNECOLOGICAL Hx Sexually Transmitted Disorders: No - PSYCHIATRIC Hx Anxiety: Yes Hx Bipolar Disorder: Yes Hx Depression: Yes - SURGICAL HISTORY Hx Cholecystectomy: Yes - ANESTHESIA Hx Anesthesia: Yes Hx Anesthesia Reactions: No Hx Malignant Hyperthermia: No Meds Allergies/Adverse Reactions: Allergies Allergy/AdvReac Type Severity Reaction Status Date / Time ibuprofen Allergy RASH Verified 08/19/17 05:37 - Medications Medications: Current Medications Atorvastatin Calcium (Lipitor) 10 mg PO DAILY [facility] Last Admin: 08/24/17 10:35 Dose: 10 mg Clonazepam (Klonopin) 1 mg PO BID [facility] Last Admin: 08/24/17 10:35 Dose: 1 mg Cyclobenzaprine HCl (Flexeril) 10 mg PO TID PRN PRN Reason: Muscle spasm Last Admin: 08/24/17 10:35 Dose: 10 mg Fluoxetine HCl (Prozac) 10 mg PO DAILY [facility] Last Admin: 08/24/17 10:35 Dose: 10 mg Hydromorphone HCl (Dilaudid) 1 mg IVP Q4 PRN PRN Reason: Pain, moderate (4-7) Hydromorphone HCl (Dilaudid) 2 mg IVP Q4 PRN PRN Reason: Pain, severe (8-10) Last Admin: 08/23/17 19:56 Dose: 2 mg Lisinopril (Zestril) 10 mg PO DAILY [facility] Last Admin: 08/23/17 09:00 Dose: 10 mg Metformin HCl (Glucophage) 500 mg PO BID [facility] Last Admin: 08/24/17 10:35 Dose: 500 mg Ondansetron HCl (Zofran Inj) 4 mg IVP Q8 PRN PRN Reason: Nausea/Vomiting Oxycodone/Acetaminophen (Percocet 5/325 Mg Tab) 2 tab PO Q4 PRN PRN Reason: Pain, Mild (1-3) Stop: 08/26/17 02:31 Last Admin: 08/24/17 08:03 Dose: 2 tab Pioglitazone HCl (Actos) 15 mg PO DAILY [facility] Last Admin: 08/24/17 10:35 Dose: 15 mg Pregabalin (Lyrica) 300 mg PO DAILY [facility] Last Admin: 08/24/17 10:55 Dose: 300 mg Sitagliptin Phosphate (Januvia) 100 mg PO DAILY [facility] Last Admin: 08/24/17 10:35 Dose: 100 mg Zolpidem Tartrate (Ambien) 5 mg PO [facility] Last Admin: 08/23/17 22:00 Dose: Not Given Physical Exam - Back Exam Back exam: tenderness, vertebral tenderness Results - Vital Signs Recent Vital Signs: Last Vital Signs Temp 98.0 F 08/24/17 00:27 Pulse 100 H 08/24/17 00:27 Resp 20 08/24/17 00:27 BP 124/75 08/24/17 00:27 Pulse Ox 96 08/24/17 00:27 - Labs Result Diagrams: 08/22/17 20:51 08/22/17 20:51 Labs: Laboratory Results - last 24 hr 08/23/17 08/23/17 08/23/17 11:14 15:51 18:19 PT 10.9 INR 1.0 APTT 28.7 POC Glucose (mg/dL) 154 H 141 H Blood Type Blood Type Confirm Antibody Screen BBK History Checked 08/23/17 08/23/17 08/23/17 20:09 20:22 21:23 PT INR APTT POC Glucose (mg/dL) 144 H Blood Type A POSITIVE Blood Type Confirm A POSITIVE Antibody Screen Negative BBK History Checked No verified bt 08/24/17 08/24/17 05:34 10:58 PT INR APTT POC Glucose (mg/dL) 162 H 114 H Blood Type Blood Type Confirm Antibody Screen BBK History Checked Assessment & Plan (1) Intractable back pain Assessment and Plan: 57 yo woman w/ intractable pain. Surgery was canceled the last minute. There appears to be psychosocial component to her pain but she does have mechanical pathologies to her pain. She's already on some pain regimen as an outpatient but it wasn't sufficient. - please consult IR for possible kypho vs vertebroplasty - repeat lumbar MRI to assess progression of compression fracture, 20% decrease in height doesn't always warrant intervention - continue Jose Miguel Hou IV for now, will recommend PO regimen when patient is ready for discharge - psych consult - PT evaluation Status: Acute
--- NOTE | 2017-08-24 13:36 | CP.PCM.PCO ---
Assessment/Plan - Assessment/Plan Assessment (Free Text): Pt stable, refused to have surgery with Dr. Aldridge. Seen and cleared for d/c home by Dr. Oviedo. Spoke with Dr. Espinoza, pt had been referred to IR, but IR unable to do kyphoplasty due to nature of fracture. Dr. Espinoza recommends Lyrica and Percocet to go home. Rx given as per med rec. Pt refused to have psych consult, states she has her own psychiatrist on the outside whom she sees for anxiety since the breakup with her many years back. Pt instructed to f/u with Dr. Oviedo on Tuesday, pt verbalized understanding. Per Dr. Oviedo pt will be seen in office and recommendations will be given for second opinion on surgery if patient wishes to proceed with surgery.
--- NOTE | 2017-08-24 21:48 | CARD ---
APPROVED REPORT EKG Measurement Heart [id number] OR [id number] [id number] <Conclusion> Normal sinus rhythm Normal ECG
== END 2017-08-24 14:00 | disposition home or self-care (01) | DRG 544 ==
LOC: H.ER 18:20 → H.ERHOLD 19:21 → H.MEDSURG1 08-23 02:23 → OBSVTOIN 08-23 11:38
PROVIDERS: ADMIT Family Medicine; ATTEND Family Medicine
DX: M48.56XA Collapsed vertebra, not elsewhere classified, lumbar region, initial encounter for fracture (principal); E11.9 Type 2 diabetes mellitus without complications; F41.9 Anxiety disorder, unspecified; F31.9 Bipolar disorder, unspecified; J44.9 Chronic obstructive pulmonary disease, unspecified; I10 Essential (primary) hypertension; E78.00 Pure hypercholesterolemia, unspecified; E78.5 Hyperlipidemia, unspecified; F17.210 Nicotine dependence, cigarettes, uncomplicated; M19.90 Unspecified osteoarthritis, unspecified site; J45.909 Unspecified asthma, uncomplicated; Z88.6 Allergy status to analgesic agent; M51.16 Intervertebral disc disorders with radiculopathy, lumbar region; Z53.20 Procedure and treatment not carried out because of patient's decision for unspecified reasons

== ENCOUNTER 2017-08-28 09:16 | Emergency (ER) | payer MEDICARE, OTHER ==
[2017-08-28 09:22] VITALS: BMI 30.5
[2017-08-28 09:23] VITALS: RESP 18
--- NOTE | 2017-08-28 10:00 | ED PDOC ---
HPI: Back Time Seen by Provider: 08/28/17 09:22 Chief Complaint (Nursing): Back Pain Chief Complaint (Provider): back pain History Per: Patient History/Exam Limitations: no limitations Onset/Duration Of Symptoms: Days (30 days ago) Current Symptoms Are (Timing): Still Present Additional Complaint(s): 57 yo female with anxiety and depression, presents to the ED complaining of recurrent back pain, onset of 30 days ago. Pain began after she sustained a mechanical fall resulting in a L1 compression fracture. She has made multiple visits at both [facility] and in this ED(3x) for pain control, but has yet to see a pain management provider. She reports of severely, worsened lower back pain ,towards the midline region, and states that she ran out of her prescription for percocet 1 day ago. She states that the percocet doesn't really help much, but it does moderate the pain. She any denies, fever, numbness , or weakness in legs. Of note, she reports that she recently saw Dr. Aldridge for a neurology consultation, but no surgery will be done at the time. PCP: Dr. Oviedo Past Medical History Reviewed: Historical Data, Nursing Documentation, Vital Signs Vital Signs: Last Vital Signs Temp 97 F L 08/28/17 09:22 Pulse 79 08/28/17 09:22 Resp 18 08/28/17 09:22 BP 146/90 08/28/17 09:22 Pulse Ox 97 08/28/17 09:22 - Medical History PMH: Anxiety, Arthritis, Back Problems, Bipolar Disorder, COPD, Depression, Diabetes, Fractures, HTN, Hypercholesterolemia, Hyperlipidemia, Pneumonia Denies: Asthma, Hepatitis, HIV, Chronic Kidney Disease, Seizures, Sexually Transmitted Disease - Surgical History Surgical History: Cholecystectomy Other surgeries: left knee surgery - Family History Family History: States: Unknown Family Hx - Social History Current smoker - smoking cessation education provided: Yes (light smoker) Ex-Smoker (has not smoked in the last 12 months): No Alcohol: None Drugs: Denies - Immunization History Hx Tetanus Toxoid Vaccination: No Hx Influenza Vaccination: No Hx Pneumococcal Vaccination: No - Home Medications Home Medications: Ambulatory Orders Medication Instructions Recorded Atorvastatin Calcium [Lipitor] 10 mg PO DAILY 09/13/12 Zolpidem [Ambien] 10 mg PO HS 05/26/16 clonazePAM [Klonopin] 1 mg PO BID 05/26/16 Lisinopril [Zestril] 10 mg PO DAILY #0 tab 05/31/16 Pioglitazone [Actos] 15 mg PO DAILY #0 tab 05/31/16 Cyclobenzaprine [Flexeril] 10 mg PO TID PRN 08/08/17 FLUoxetine [Prozac] 10 mg PO DAILY 08/08/17 Sitagliptin Phos/Metformin HCl 2 tab PO DAILY 08/08/17 [Janumet 50-500 mg Tablet] Pregabalin [Lyrica] 300 mg PO DAILY #15 cap 08/24/17 oxyCODONE/Acetaminophen [Percocet 1 ea PO Q6 PRN #10 tab 08/24/17 5/325 mg Tab] oxyCODONE/Acetaminophen [Percocet 1 tab PO Q6 #8 tab 08/24/17 5/325 mg Tab] Acetaminophen [Tylenol] 325 mg PO Q6 PRN #30 tab 08/26/17 predniSONE [Prednisone] 20 mg PO BID #10 tab 08/26/17 - Allergies Allergies/Adverse Reactions: Allergies Allergy/AdvReac Type Severity Reaction Status Date / Time ibuprofen Allergy RASH Verified 08/26/17 06:01 Review of Systems ROS Statement: Except As Marked, All Systems Reviewed And Found Negative Constitutional: Negative for: Fever Musculoskeletal: Positive for: Back Pain (midline of lower back ) Neurological: Negative for: Weakness (in legs), Numbness Physical Exam - Reviewed Nursing Documentation Reviewed: Yes Vital Signs Reviewed: Yes - Physical Exam Appears: Positive for: Uncomfortable (due to pain) Head Exam: Positive for: ATRAUMATIC, NORMAL INSPECTION, NORMOCEPHALIC Skin: Positive for: Normal Color, Warm, DRY Eye Exam: Positive for: EOMI, Normal appearance, PERRL Neck: Positive for: Normal, Painless ROM Cardiovascular/Chest: Positive for: Regular Rate, Rhythm. Negative for: Murmur Respiratory: Positive for: Normal Breath Sounds. Negative for: Respiratory Distress Back: Positive for: Other (midline tenderness ) Extremity: Positive for: Normal ROM (did not ambulate, becasue was in pain but she showed that she was able to move all her extremities). Negative for: Pedal Edema, Deformity Neurologic/Psych: Positive for: Alert, Oriented - ECG O2 Sat by Pulse Oximetry: 97 (RA) Pulse Ox Interpretation: Normal Medical Decision Making Medical Decision Making: Time: --09:40 Impression: --Acute/Chronic back pain exacerbation Plan: --Dilaudid 1mg IVP (for pain control) Reassess --discussed case with primary care provider, Dr. Oviedo, for instructions on further care. instructions to follow up with pain management provider and to see her primary doctor, Dr. Oviedo, in his office have been given. Scribe Attestation: Documented by Jeremy Peralta acting as a scribe for Ed Smith MD. Provider Attestation: All medical record entries made by the Scribe were at my direction and personally dictated by me. I have reviewed the chart and agree that the record accurately reflects my personal performance of the history, physical exam, medical decision making, and the department course for this patient. I have also personally directed, reviewed, and agree with the discharge instructions and disposition. Disposition - Clinical Impression Clinical Impression: Chronic back pain - Patient ED Disposition Is Patient to be Admitted: No Doctor Will See Patient In The: Office Counseled Patient/Family Regarding: Studies Performed, Diagnosis, Need For Followup - Disposition Referrals: Enriqeu Oviedo MD [Family Provider] - Disposition: Routine/Home Disposition Time: 11:20 Condition: IMPROVED Additional Instructions: Follow up with your PCP tomorrow. Instructions: Chronic Pain (DC)
[2017-08-28 11:38] VITALS: BP 128/69; PULSE 88; TEMP 97.9; O2SAT 99
== END 2017-08-28 11:38 | disposition home or self-care (01) ==
LOC: H.ER 09:16
DX: M54.9 Dorsalgia, unspecified (principal); E11.9 Type 2 diabetes mellitus without complications
CPT/HCPCS: 96374; 99284; J1170

== ENCOUNTER 2017-08-28 23:19 | Emergency (ER) | payer MEDICARE, OTHER ==
[2017-08-28 23:19] VITALS: BMI 30.5
[2017-08-28 23:26] VITALS: BP 150/73; PULSE 74; RESP 18; TEMP 97.8; O2SAT 97
--- NOTE | 2017-08-29 00:52 | ED PDOC ---
HPI: Back Time Seen by Provider: 08/28/17 23:20 Chief Complaint (Nursing): Back Pain Chief Complaint (Provider): Back Pain History Per: Patient History/Exam Limitations: no limitations Onset/Duration Of Symptoms: Days (x30 days) Current Symptoms Are (Timing): Still Present Additional Complaint(s): 57 y/o female with past medical history of bipolar disorder presents to the ED complaining of chronic back pain. Patient was seen in the ED this morning and was discharged and was advised to follow up with out-patient. Patient reports that she was injured about a month ago and was supposed to have a surgery but was cancelled. apparently She refused for surgery and psychiatry. She denies any new neurological symptoms or any further medical complaints. she appears to be uncomfortable when i evaluate her, and then when i walk out she is calm and in bed in no distress. PMD: Enrique Oviedo MD Past Medical History Reviewed: Historical Data, Nursing Documentation, Vital Signs Vital Signs: Last Vital Signs Temp 97.8 F 08/28/17 23:23 Pulse 74 08/28/17 23:23 Resp 18 08/28/17 23:23 BP 150/73 08/28/17 23:23 Pulse Ox 97 08/28/17 23:23 - Medical History PMH: Anxiety, Arthritis, Back Problems, Bipolar Disorder, COPD, Depression, Diabetes, Fractures, HTN, Hypercholesterolemia, Hyperlipidemia, Pneumonia Denies: Asthma, Hepatitis, HIV, Chronic Kidney Disease, Seizures, Sexually Transmitted Disease - Surgical History Surgical History: Cholecystectomy - Family History Family History: States: Unknown Family Hx - Social History Current smoker - smoking cessation education provided: Yes (Light Smoker < 10 Cigarettes Daily) Alcohol: None Drugs: Denies - Immunization History Hx Tetanus Toxoid Vaccination: No Hx Influenza Vaccination: No Hx Pneumococcal Vaccination: No - Home Medications Home Medications: Ambulatory Orders Medication Instructions Recorded Atorvastatin Calcium [Lipitor] 10 mg PO DAILY 09/13/12 Zolpidem [Ambien] 10 mg PO HS 05/26/16 clonazePAM [Klonopin] 1 mg PO BID 05/26/16 Lisinopril [Zestril] 10 mg PO DAILY #0 tab 05/31/16 Pioglitazone [Actos] 15 mg PO DAILY #0 tab 05/31/16 Cyclobenzaprine [Flexeril] 10 mg PO TID PRN 08/08/17 FLUoxetine [Prozac] 10 mg PO DAILY 08/08/17 Sitagliptin Phos/Metformin HCl 2 tab PO DAILY 08/08/17 [Janumet 50-500 mg Tablet] Pregabalin [Lyrica] 300 mg PO DAILY #15 cap 08/24/17 oxyCODONE/Acetaminophen [Percocet 1 ea PO Q6 PRN #10 tab 08/24/17 5/325 mg Tab] oxyCODONE/Acetaminophen [Percocet 1 tab PO Q6 #8 tab 08/24/17 5/325 mg Tab] Acetaminophen [Tylenol] 325 mg PO Q6 PRN #30 tab 08/26/17 predniSONE [Prednisone] 20 mg PO BID #10 tab 08/26/17 - Allergies Allergies/Adverse Reactions: Allergies Allergy/AdvReac Type Severity Reaction Status Date / Time ibuprofen Allergy RASH Verified 08/28/17 23:23 Review of Systems ROS Statement: Except As Marked, All Systems Reviewed And Found Negative (As per HPI, otherwise negative) Musculoskeletal: Positive for: Back Pain (Chronic back pain) Physical Exam - Reviewed Vital Signs Reviewed: Yes (pt did not allow me to complete physical exam) - Physical Exam Appears: Positive for: Well, Non-toxic Skin: Positive for: Normal Color, Warm, Dry Neck: Positive for: Painless ROM Cardiovascular/Chest: Positive for: Regular Rate, Rhythm Respiratory: Positive for: Normal Breath Sounds Gastrointestinal/Abdominal: Positive for: Normal Exam Extremity: Positive for: Normal ROM (gait stable) Neurologic/Psych: Positive for: Alert, Oriented, Other (pt refused complete neuro exam) - ECG O2 Sat by Pulse Oximetry: 97 (RA) Pulse Ox Interpretation: Normal Medical Decision Making Medical Decision Making: Time: 00:44 Pt presented with acute on chronic pain, demanding narcotics. explained to patient that we are instituting the STOP protocol is being initiated b ut i offered her alternatives- tylenol, tramadol (she has allergy to motrin). pt allowed me to complete part of physical exam but not let me complete the exam ( no neurological exam). as soon as i informed pt of no narcotics she got up and walked out of the ER (in no distresss) Scribe Attestation: Documented by Melo Meyer acting as a scribe for Raine Arzola MD. Scribe Attestation: All medical record entries made by the Scribe were at my direction and personally dictated by me. I have reviewed the chart and agree that the record accurately reflects my personal performance of the history, physical exam, medical decision making, and the department course for this patient. I have also personally directed, reviewed, and agree with the discharge instructions and disposition. Disposition - Clinical Impression Clinical Impression: Exacerbation of chronic back pain - Patient ED Disposition Is Patient to be Admitted: No - Disposition Referrals: Enrique Oviedo MD [Primary Care Provider] - Disposition: Left W/O Treatment Disposition Time: 00:00 Condition: STABLE Forms: [employer] (Hebrew)
[2017-08-29 00:53] LABS: SQUAMOUS EPITHIAL < 1 /hpf (0-5); URINE BILIRUBIN NEGATIVE (NEGATIVE); URINE BLOOD NEGATIVE (NEGATIVE); URINE CLARITY CLEAR (Clear); URINE COLOR STRAW (YELLOW); URINE GLUCOSE (UA) >=500 mg/dL (Normal); URINE LEUKOCYTE ESTERASE NEG Leu/uL (Negative); URINE NITRATE NEGATIVE (NEGATIVE); URINE PROTEIN NEGATIVE (NEGATIVE); URINE UROBILINOGEN 0.2-1.0 mg/dL (0.2-1.0)
== END 2017-08-29 01:23 | disposition home or self-care (01) ==
LOC: H.ER 23:19
DX: M54.9 Dorsalgia, unspecified (principal); E11.9 Type 2 diabetes mellitus without complications; E78.00 Pure hypercholesterolemia, unspecified; F31.9 Bipolar disorder, unspecified; F41.9 Anxiety disorder, unspecified; G89.29 Other chronic pain; I10 Essential (primary) hypertension; J44.9 Chronic obstructive pulmonary disease, unspecified; F17.210 Nicotine dependence, cigarettes, uncomplicated

== ENCOUNTER 2017-10-23 02:45 | Emergency (ER) | payer MEDICARE, OTHER ==
[2017-10-23 02:48] VITALS: BMI 28.7
[2017-10-23 03:00] VITALS: TEMP 98.2
[2017-10-23] MEDS ORDERED: Lidocaine 5% Patch TD STA (03:03)
[2017-10-23] MEDS ORDERED: Lidocaine 5% Patch TD ONE (04:17)
--- NOTE | 2017-10-23 04:18 | ED PDOC ---
HPI: Back Time Seen by Provider: 10/23/17 02:57 Chief Complaint (Nursing): Back Pain History Per: Patient History/Exam Limitations: no limitations Current Symptoms Are (Timing): Other (Worsen) Additional Complaint(s): 57-year-old female, with a history of anxiety, depression and chronic back pain , presents to ED complaining of non-radiating lower back pain that she had for many years. Reports pain worsen tonight. 2 weeks ago patient had spinal surgery at [facility]. In the past, patient took percocet, but is not currently taking any. Denies fever, weakness, numbness or difficulty with urination. Patient reports she does not go to any pain management. PMD: Enrique Oviedo Past Medical History Reviewed: Historical Data, Nursing Documentation, Vital Signs Vital Signs: Last Vital Signs Temp 98.2 F 10/23/17 02:56 Pulse 78 10/23/17 02:56 Resp 18 10/23/17 02:56 BP 115/75 10/23/17 02:56 Pulse Ox 98 10/23/17 02:56 - Medical History PMH: Anxiety, Arthritis, Back Problems, Bipolar Disorder, COPD, Depression, Diabetes, Fractures, HTN, Hypercholesterolemia, Hyperlipidemia, Pneumonia Denies: Asthma, Hepatitis, HIV, Chronic Kidney Disease, Seizures, Sexually Transmitted Disease - Surgical History Surgical History: Cholecystectomy - Family History Family History: States: Unknown Family Hx - Immunization History Hx Tetanus Toxoid Vaccination: No Hx Influenza Vaccination: No Hx Pneumococcal Vaccination: No - Home Medications Home Medications: Ambulatory Orders Medication Instructions Recorded Atorvastatin Calcium [Lipitor] 10 mg PO DAILY 09/13/12 Zolpidem [Ambien] 10 mg PO HS 05/26/16 clonazePAM [Klonopin] 1 mg PO BID 05/26/16 Lisinopril [Zestril] 10 mg PO DAILY #0 tab 05/31/16 Pioglitazone [Actos] 15 mg PO DAILY #0 tab 05/31/16 Cyclobenzaprine [Flexeril] 10 mg PO TID PRN 08/08/17 FLUoxetine [Prozac] 10 mg PO DAILY 08/08/17 Sitagliptin Phos/Metformin HCl 2 tab PO DAILY 08/08/17 [Janumet 50-500 mg Tablet] Pregabalin [Lyrica] 300 mg PO DAILY #15 cap 08/24/17 oxyCODONE/Acetaminophen [Percocet 1 ea PO Q6 PRN #10 tab 08/24/17 5/325 mg Tab] oxyCODONE/Acetaminophen [Percocet 1 tab PO Q6 #8 tab 08/24/17 5/325 mg Tab] Acetaminophen [Tylenol] 325 mg PO Q6 PRN #30 tab 08/26/17 predniSONE [Prednisone] 20 mg PO BID #10 tab 08/26/17 - Allergies Allergies/Adverse Reactions: Allergies Allergy/AdvReac Type Severity Reaction Status Date / Time ibuprofen Allergy RASH Verified 10/23/17 02:56 Review of Systems ROS Statement: Except As Marked, All Systems Reviewed And Found Negative Constitutional: Negative for: Fever Genitourinary Female: Negative for: Other (difficulty urination) Musculoskeletal: Positive for: Back Pain (non-radiating lower back pain) Neurological: Negative for: Weakness, Numbness Physical Exam - Reviewed Nursing Documentation Reviewed: Yes Vital Signs Reviewed: Yes - Physical Exam Appears: Positive for: Uncomfortable (due to pain) Head Exam: Positive for: ATRAUMATIC, NORMAL INSPECTION, NORMOCEPHALIC Skin: Positive for: Normal Color, Warm, Dry Eye Exam: Positive for: Normal appearance, EOMI, PERRL ENT: Positive for: Normal ENT Inspection Neck: Positive for: Normal Cardiovascular/Chest: Positive for: Regular Rate, Rhythm Respiratory: Positive for: Normal Breath Sounds. Negative for: Respiratory Distress Gastrointestinal/Abdominal: Positive for: Normal Exam Back: Positive for: Other (Lower back: Midline tenderness throughout lumbar spine) Extremity: Positive for: Normal ROM. Negative for: Deformity Neurologic/Psych: Positive for: Alert, Oriented (x 3). Negative for: Motor/ Sensory Deficits - ECG O2 Sat by Pulse Oximetry: 98 (RA) Pulse Ox Interpretation: Normal Medical Decision Making Medical Decision Making: Time: 03:03 Impression(s): Chronic Back Pain, Acute Exacerbation of Chronic Back Pain Plan: - Flexeril 10 mg PO STAT - Lidocaine 5% - Tylenol 325 Tab Patient was reminded again about ED narcotic policy. Patient will be given non- opiated medicine for back pain according to STOP protocol. 04:23 Patient reports symptoms improved. Upon provider evaluation patient is medically stable, and requires no further treatment in the ED at this time. Patient will be discharged. Counseling was provided and all questions were answered regarding diagnosis and need for follow up with PCP or surgeon for pain management in 2-3 days. There is agreement to discharge plan. Return if symptoms persist or worsen. Scribe Attestation: Documented by Gonsalo Gaytan, acting as a scribe for Ed Smith MD. Provider Scribe Attestation: All medical record entries made by the Scribe were at my direction and personally dictated by me. I have reviewed the chart and agree that the record accurately reflects my personal performance of the history, physical exam, medical decision making, and the department course for this patient. I have also personally directed, reviewed, and agree with the discharge instructions and disposition. Disposition - Clinical Impression Clinical Impression: Chronic back pain - Patient ED Disposition Is Patient to be Admitted: No Doctor Will See Patient In The: Office Counseled Patient/Family Regarding: Studies Performed, Diagnosis, Need For Followup - Disposition Referrals: Enrique Oviedo MD [Family Provider] - Jaret Campbell MD [Staff Provider] - Disposition: Routine/Home Disposition Time: 04:40 Condition: IMPROVED Additional Instructions: Follow up with your PCP or surgeon for pain management in 2-3 days. Instructions: Chronic Pain (DC)
[2017-10-23 05:46] VITALS: BP 103/48; PULSE 74; RESP 16
[2017-10-24 12:57] VITALS: O2SAT 98
== END 2017-10-23 05:30 | disposition home or self-care (01) ==
LOC: H.ER 02:45
DX: M54.9 Dorsalgia, unspecified (principal); G89.29 Other chronic pain; E11.9 Type 2 diabetes mellitus without complications; E78.00 Pure hypercholesterolemia, unspecified; F31.9 Bipolar disorder, unspecified; F41.9 Anxiety disorder, unspecified; I10 Essential (primary) hypertension; J44.9 Chronic obstructive pulmonary disease, unspecified

== ENCOUNTER 2018-10-02 00:02 | Emergency (ER) | payer MEDICARE ==
[2018-10-02 00:02] VITALS: BMI 28.7
[2018-10-02 00:08] VITALS: RESP 18
[2018-10-02] MEDS ORDERED: Oxycodone/Acetaminophen 5/325 mg Tab PO ONE (00:54)
[2018-10-02] MEDS ORDERED: Oxycodone/Acetaminophen 5/325 mg Tab ONE (00:57)
[2018-10-02 01:25] LABS: SQUAMOUS EPITHIAL 2 /hpf (0-5); URINE BILIRUBIN NEGATIVE (NEGATIVE); URINE BLOOD NEGATIVE (NEGATIVE); URINE CLARITY CLEAR (Clear); URINE COLOR YELLOW (YELLOW); URINE GLUCOSE (UA) >=500 mg/dL (NEGATIVE); URINE LEUKOCYTE ESTERASE NEG Leu/uL (Negative); URINE PROTEIN 30 mg/dL (NEGATIVE); URINE UROBILINOGEN 0.2-1.0 mg/dL (0.2-1.0)
--- NOTE | 2018-10-02 01:44 | ED PDOC ---
HPI: Back Time Seen by Provider: 10/02/18 00:18 Chief Complaint (Nursing): Back Pain Chief Complaint (Provider): Back Pain History Per: Patient History/Exam Limitations: no limitations Additional Complaint(s): 58 y/o female with history of chronic back pain and some psychiatric history presents to the ED complaining of lower back pain. Patient states that she had surgery 5 months ago to her lower spine. Chart review indicates there may be some psychiatric component to her pain. Patient doesn't follow with pain tanesha german. Patient reports progressively worsening pain and the last day it became much worse. Patient states pain is located more on the left lower back. Denies trauma, fall, numbness, or weakness. Past Medical History Reviewed: Historical Data Vital Signs: Last Vital Signs Temp 98.2 F 10/02/18 00:05 Pulse 78 10/02/18 00:05 Resp 18 10/02/18 00:05 BP 137/109 H 10/02/18 00:05 Pulse Ox 99 10/02/18 00:05 - Medical History PMH: Anxiety, Arthritis, Back Problems, Bipolar Disorder, COPD, Depression, Diabetes, Fractures, HTN, Hypercholesterolemia, Hyperlipidemia, Pneumonia Denies: Asthma, Hepatitis, HIV, Chronic Kidney Disease, Seizures, Sexually Transmitted Disease - Surgical History Surgical History: Cholecystectomy - Family History Family History: States: Unknown Family Hx - Social History Current smoker - smoking cessation education provided: No Alcohol: None Drugs: Denies - Immunization History Hx Tetanus Toxoid Vaccination: No Hx Influenza Vaccination: No Hx Pneumococcal Vaccination: No - Home Medications Home Medications: Ambulatory Orders Medication Instructions Recorded Atorvastatin Calcium [Lipitor] 10 mg PO DAILY 09/13/12 Zolpidem [Ambien] 10 mg PO HS 05/26/16 clonazePAM [Klonopin] 1 mg PO BID 05/26/16 Lisinopril [Zestril] 10 mg PO DAILY #0 tab 05/31/16 Pioglitazone [Actos] 15 mg PO DAILY #0 tab 05/31/16 Cyclobenzaprine [Flexeril] 10 mg PO TID PRN 08/08/17 FLUoxetine [Prozac] 10 mg PO DAILY 08/08/17 Sitagliptin Phos/Metformin HCl 2 tab PO DAILY 08/08/17 [Janumet 50-500 mg Tablet] Pregabalin [Lyrica] 300 mg PO DAILY #15 cap 08/24/17 oxyCODONE/Acetaminophen [Percocet 1 ea PO Q6 PRN #10 tab 08/24/17 5/325 mg Tab] oxyCODONE/Acetaminophen [Percocet 1 tab PO Q6 #8 tab 08/24/17 5/325 mg Tab] Acetaminophen [Tylenol] 325 mg PO Q6 PRN #30 tab 08/26/17 predniSONE [Prednisone] 20 mg PO BID #10 tab 08/26/17 - Allergies Allergies/Adverse Reactions: Allergies Allergy/AdvReac Type Severity Reaction Status Date / Time ibuprofen Allergy RASH Verified 10/23/17 02:56 Review of Systems ROS Statement: Except As Marked, All Systems Reviewed And Found Negative Musculoskeletal: Positive for: Back Pain Physical Exam - Reviewed Nursing Documentation Reviewed: Yes Vital Signs Reviewed: Yes - Physical Exam Appears: Positive for: No Acute Distress, Uncomfortable (moaning in pain) Head Exam: Positive for: ATRAUMATIC, NORMAL INSPECTION, NORMOCEPHALIC Skin: Positive for: Normal Color, Warm, DRY Eye Exam: Positive for: EOMI, Normal appearance, PERRL ENT: Positive for: Normal ENT Inspection Neck: Positive for: Normal, Painless ROM Cardiovascular/Chest: Positive for: Regular Rate, Rhythm. Negative for: Murmur Respiratory: Positive for: Normal Breath Sounds. Negative for: Respiratory Dist ress Gastrointestinal/Abdominal: Positive for: Normal Exam, Soft. Negative for: Tenderness Back: Positive for: Normal Inspection. Negative for: L CVA Tenderness, R CVA Tenderness, Vertebral Tenderness Extremity: Positive for: Normal ROM. Negative for: Pedal Edema, Deformity Neurological/Psych: Positive for: Awake, Alert, Normal Tone, Symmetric/Intact Strength, Oriented (x3), Mood/Affect (moaning in pain), Gait (normal), Cerebellar Tests (normal), authorization manager II-XII (intact). Negative for: Lethargic, Listless, Motor/Sensory Deficits, Facial Droop - Laboratory Results Result Diagrams: 10/02/18 04:50 10/02/18 04:50 Lab Results: Urine Color Yellow (YELLOW) 10/02/18 01:15 Urine Clarity Clear (Clear) 10/02/18 01:15 Urine pH 6.0 (5.0-8.0) 10/02/18 01:15 Ur Specific [place] 1.026 (1.003-1.030) 10/02/18 01:15 Urine Protein 30 mg/dL (NEGATIVE) 10/02/18 01:15 Urine Glucose (UA) >=500 mg/dL (NEGATIVE) 10/02/18 01:15 Urine Ketones Negative mg/dL (NEGATIVE) 10/02/18 01:15 Urine Blood Negative (NEGATIVE) 10/02/18 01:15 Urine Nitrate Negative (NEGATIVE) 10/02/18 01:15 Urine Bilirubin Negative (NEGATIVE) 10/02/18 01:15 Urine Urobilinogen 0.2-1.0 mg/dL (0.2-1.0) 10/02/18 01:15 Ur Leukocyte Esterase Neg Ivana/uL (Negative) 10/02/18 01:15 Urine RBC (Auto) 1 /hpf (0-3) 10/02/18 01:15 Urine Microscopic WBC 2 /hpf (0-5) 10/02/18 01:15 Ur Squamous Epith Cells 2 /hpf (0-5) 10/02/18 01:15 - ECG O2 Sat by Pulse Oximetry: 99 (RA) Pulse Ox Interpretation: Normal Medical Decision Making Medical Decision Making: Time: 00:54 Initial Impression: chronic lower back pain Initial Plan: * Flexeril * Percocet * Tylenol * UA 02:46 Patient is diabetic and urine shows greater than 500 glucose. 06:11 Patient reports improvement of symptoms and is feeling better. Labs show sugar is 128. Patient is stable for discharge home. Scribe Attestation: Documented by Derek Suero, acting as a scribe Ivonne Ni MD Provider Scribe Attestation: All medical record entries made by the Scribe were at my direction and personally dictated by me. I have reviewed the chart and agree that the record accurately reflects my personal performance of the history, physical exam, medical decision making, and the department course for this patient. I have also personally directed, reviewed, and agree with the discharge instructions and disposition Disposition - Clinical Impression Clinical Impression: Acute exacerbation of chronic low back pain - Patient ED Disposition Is Patient to be Admitted: No Counseled Patient/Family Regarding: Studies Performed, Diagnosis, Need For Followup - Disposition Disposition: Routine/Home Disposition Time: 06:11 Condition: IMPROVED Additional Instructions: follow up with your primary doctor Dr Oviedo in 1-2 days return to the ED with any worsening or concerning symptoms Instructions: Low Back Pain in Adults Forms: [employer] (Mauritanian)
[2018-10-02 05:03] LABS: BASO # 0.1 K/uL (0.0-0.2); BASO % 0.7 % (0.0-2.0); EOS # 0.2 K/uL (0.0-0.7); EOS % 2.5 % (0.0-4.0); HEMOGLOBIN 13.8 g/dL (12.0-16.0); LYMPH # 2.2 K/uL (1.0-4.3); MEAN CELL VOLUME 92.6 fl (81.0-99.0); MEAN CORPUSCULAR HEMOGLOBIN 30.6 pg (27.0-31.0); MEAN CORPUSCULAR HGB CONC 33.1 g/dL (33.0-37.0); MEAN PLATELET VOLUME 9.8 fl (7.2-11.7); MONO # 0.5 K/uL (0.0-0.8); MONO % 7.1 % (0.0-10.0); NEUT # 4.4 K/uL (1.8-7.0); NEUT % 59.7 % (50.0-75.0); NRBC % 0.1 % (0.0-0.0); RBC 4.5 Mil/uL (3.80-5.20); RED CELL DISTRIBUTION WIDTH 14.5 % (11.5-14.5); WHITE BLOOD COUNT 7.3 K/uL (4.8-10.8)
[2018-10-02 05:13] LABS: BLOOD UREA NITROGEN 19 mg/dl (7-17); CALCIUM 9.5 mg/dL (8.4-10.2); GFR NON-AFRICAN AMERICAN > 60
[2018-10-02 05:15] LABS: ALB/GLOB RATIO 1.2 (1.0-2.1); ALBUMIN 4.3 g/dL (3.5-5.0); ALT/SGPT 21 U/L (9-52); AST/SGOT 29 U/L (14-36)
[2018-10-02 06:57] VITALS: BP 122/91; PULSE 76; TEMP 98
[2018-10-03 03:32] VITALS: O2SAT 99
== END 2018-10-02 06:55 | disposition home or self-care (01) ==
LOC: H.ER 00:02
DX: M54.5 Low back pain (principal); E11.9 Type 2 diabetes mellitus without complications; E78.00 Pure hypercholesterolemia, unspecified; I10 Essential (primary) hypertension; G89.29 Other chronic pain